=== PATIENT | female | born 1975 | race Caucasian/White ===

== ENCOUNTER 2019-02-17 10:24 | Emergency (ER) | payer OTHER ==
--- OUTSIDE RECORDS SUMMARY | 2019-02-17 10:30 | XMS REPORT | Continuity of Care Document ---
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 significant canal stenosis. Sacral spine: No evidence of significant canal or neural foraminal narrowing. No significant sacroiliac degenerative changes are evidence of acute bony abnormality. IMPRESSION: 1. Postoperative changes in the mid cervical spine with slight C5-C6 retrolisthesis. 2. Chronic mild anterior wedge compression deformity of the L1 vertebral body. 3. Disc bulge asymmetric to the right at L5-S1 with associated stenoses including resulting deformity of the right L5 foraminal nerve root. 4. Thyromegaly appears mildly heterogeneous without definite focal lesion. Recommend thyroid ultrasound. Recommendations for f/u of Incidental Thyroid Nodules (ITN) found on CT, MRI , NM and Extrathyroidal US based on the ACR white paper and Sharma 3-tiered system for managing ITNs: 1. Further evaluation by thyroid US recommended for: \X2981\ Solitary ITN with high risk imaging features (locally invasive nodule or suspicious lymph nodes) 0 Solitary ITN of any size in pediatric patients < 18 years of age 1 Solitary ITN > 1 cm in axial plane in patients between 18 and 35 years of age 2 Solitary ITN > 1.5 cm in axial plane in patients > 35 years of age 3 Heterogeneous enlarged thyroid gland 4 ITN avid on FDG-PET or other nuclear medicine (MIBI and octreotide) scans. FNA biopsy is also recommended for PET avid nodules. 2. No f/u is necessary for ITNs not meeting the above criteria. 3. For multiple thyroid nodules, the above recommendations for solitary ITN are to be applied to the largest nodule. 4. No US or f/u recommended for ITNs without high risk features in patients with limited life expectancy or significant co-morbidities, unless clinically warranted. 5. These recommendations do not apply to patients with increased risk for thyroid cancer or patients with symptomatic thyroid disease. Brain wo contrast Clinical History: memory loss. 09/18/2014 [employer] MRI Sex: F. : 1975. Technique: Sagittal, axial and coronal sequences through the brain with T1, T2, FLAIR and diffusion weighting on the high field magnet. The diffusion weighted exam shows no evidence for restricted diffusion or acute infarct. There is no acute abnormal intracranial signal, mass, mass effect or extra-axial fluid collection. Ventricles, wu barachnoid spaces and sulci are normal. There is no evidence for hydrocephalus. There is no midline shift. The posterior fossa is intact. There is normally maintained signal void in the major vasculatu re. The sella and suprasellar cistern are normal. Paranasal sinuses are aerated. Orbits are symmetric. IMPRESSION: 1. Negative MRI of the Brain. Chest 2 views EXAMINATION: Chest radiographic examination, frontal and lateral projections dated 08/17/2013 08/17/2013 [employer] COMPARISON: None INDICATION: Pneumonia FINDINGS: There is no acute infiltrate or focal consolidation. No pneumothorax or pleural effusion. The cardiomediastinal silhouette is within normal limits. The aorta is unremarkable. No acute bony abnormality noted. IMPRESSION: No acute cardiopulmonary abnormality. Brain wo contrast CT EXAMINATION: head CT without contrast. 05/10/2013 [facility] COMPARISON: None. REASON FOR EXAMINATION: head trauma, status post fall , headache. TECHNIQUE: Axial computed tomographic images were obtained through the brain without contrast. Coronal and sagittal reformatted images were subsequently obtained for further diagnostic information. FINDINGS: The sulci, lateral ventricles, and basilar cisterns are normal in appearance. There is no evidence of mass-effect or midline shift. No focal encephalomalacia. No intracerebral or extra-axial hematoma is identified. No abnormal intracranial calcifications. The the patient is status post right frontal parietal craniotomy. Severe mid nasal septal deviation to the right is present. Moderate jessica ateral ethmoid sinus mucosal thickening is present. IMPRESSION: 1. NO ACUTE INTRACRANIAL ABNORMALITIES. Spine cervical wo EXAMINATION: cervical spine CT without contrast. [address] [facility] REASON FOR EXAMINATION: neck trauma, neck pain. COMPARISON: None. TECHNIQUE: Axial computed tomographic images were obtained through the cervical spine without contrast. Sagittal and coronal reformatted images were subsequently obtained. FINDINGS: There is no fracture or subluxation. There is normal vertebral alignment. The patient is status post bilateral interpedicular screw fixation with posterior spinal stabilization ramon placement a t the C4-C6 levels. The hardware is intact. Mild paraseptal emphysematous changes are present within the lung apices. IMPRESSION: No fracture or subluxation of the cervical spine. Facial bone wo EXAMINATION: Facial bone CT 05/10/[address] [facility] [address] REASON FOR EXAMINATION: Facial trauma, pain. COMPARISON: None. TECHNIQUE: Axial computed tomographic images were obtained through the facial bones without contrast. Coronal and sagittal reformatted images were subsequently obtained. FINDINGS: There is no facial fracture. Severe nasal septal deviation to the right is present. Moderate bilateral ethmoid sinus mucosal thickening is present. Rhinitis is present. IMPRESSION: 1. No fracture or dislocation of the face. 2. Severe nasal septal deviation to the right. Spine Sacrum wo MRI of The Sacrum and Coccyx With and Without IV Contrast 07/2013 [facility] contrast MRI Bone & Joint History: Mass pain Technique: The study was performed on a high-field magnet without IV contrast. Findings: There is a well-defined benign-appearing cystic lesion in the cutaneous fat adjacent to the fifth coccygeal segment to the left of midline, adjacent to the cleft of the buttocks. Low signal intens ity peripheral margin is present. Lesion appears totally cystic in with minimal internal debris without solid components. The lesion overall measures 2.3 x 1.4 x 1.6 cm in its greatest cc AP and transve rse dimensions. The adjacent coccyx appears unremarkable without bone marrow edema or erosions. There is no intrapelvic component. This lesion most like represents a pilonidal cyst. No presacral masses identified. The sacral foramina appear patent. No bone marrow edema in the sacrum. The sacral iliac joints appear intact without erosions or joint effusion. The intrapelvic structures appear grossly unremarkable. Impression: Benign-appearing cystic lesion just to the left of the cleft, confined to the subcutaneous fat described above, adjacent to the fifth coccygeal segment. Findings most like represent a pilonidal cy st. No bony erosions. No intrapelvic or solid component. . Spine lumbar wo MRI of the Lumbar Spine 02/28/2013 [facility]IGLEY[facility] contrast MRI Joint History: Bilateral radiculopathy. Comparison Study: none Technique: The study was performed on a high field magnet without contrast. Findings: L1-2: There is a superior endplate deformity of L1 with loss approximately 20 % of vertebral height. Anterior spondylosis is present. No bone marrow edema. Findings most like represent a chronic nathan karen deformity. There is disc desiccation at T12-L1 without focal protrusion. No retropulsion. The L1-L2 disc is unremarkable without disc bulge protrusion. No central or foraminal stenosis. L2-3, L3-L4, L4-L5: The discs are adequately hydrated without disc bulge contusion. No central or foraminal stenosis. Mild facet degeneration at L4-L5. L5-S1: Disc desiccation without significant loss disc height. There is a small 3 mm broad-based posterior central protrusion mildly effacing the intrathecal sac without mass effect on S1 root sleeves. M ild facet degeneration. No central or foraminal stenosis. The conus terminates normally at T12-L1. Impression: Disc degeneration at L5-S1 where there is a small 3 mm broad-based posterior central protrusion with annular tear mildly effacing the intrathecal sac without mass effect on S1 root sleeves. Facet degeneration at L4-L5 and L5-S1. Old superior endplate deformity of L1 with loss of approximately 20% of vertebral height. No retropulsion or focal protrusion at T12-L1 or L1-L2.. Dictation Code: 100 Spine cervical wo MRI of the Cervical Spine Without IV Contrast 02/28/2013 [facility] contrast MRI Joint History: Pain. prior fusion Technique: The study was performed on a highfield magnet without intravenous contrast. Findings: C2-C3: Disc is hydrated without posterior disc bulge or protrusion. No central or foraminal narrowing. C3-C4: Disc height is maintained. Minimal bilateral uncovertebral spurring and mild bilateral facet degeneration. No central or foraminal stenosis. C4-C5: Disc height is maintained without focal protrusion. Posterior lateral fusion with surgical hardware in place. No central or foraminal stenosis. C5-C6: Disc desiccation with mild loss of disc height. Subtle retrolisthesis of C5 on C6. Mild posterior spondylosis without focal protrusion. Posterior lateral fusion with surgical hardware in place. No central or foraminal stenosis. C6-C7: Disc height is maintained. No posterior disc bulge protrusion. No central or foraminal stenosis. Minimal posterior central spondylosis. C7-T1: Disc desiccation. Mild compression deformity of T1 without bone marrow edema. No posterior disc bulge contusion. Mild bilateral facet degeneration. No central or foraminal stenosis. The cervical cord is normal in signal intensity and caliber. Craniocervical junction is normal. Impression: Posterior lateral fusion with surgical hardware in place at C4-C5, C5-C6. Mild disc space narrowing at C5-C6 with a subtle retrolisthesis of C5 on C6. Posterior central spondylosis without focal protrusion. No central or foraminal stenosis. A mild superior endplate deformity of T1 without bone marrow edema most like representing chronic posttraumatic change. Mild facet degeneration. No central or foraminal stenosis. Mild facet degeneration at C3-C4. Dictation Code : 100 Consultation Notes No Data Provided for This Section Discharge Summaries No Data Provided for This Section History and Physicals No Data Provided for This Section Vital Signs Vital Sign Value Date Comments Source Height 66 05/17/2018 [facility] Weight 153 05/17/2018 [facility] Diastolic (mm Hg) 72 05/17/2018 [facility] Systolic (mm Hg) 110 05/17/2018 [facility] Height 66 09/17/2017 [facility] Weight 155 09/17/2017 [facility] Diastolic (mm Hg) 80 09/17/2017 [facility] Systolic (mm Hg) 112 09/17/2017 [facility] Height 66 06/01/2017 [facility] Weight 156 06/01/2017 [facility] Diastolic (mm Hg) 70 06/01/2017 [facility] Systolic (mm Hg) 108 06/01/2017 [facility] Height 66 11/14/2016 [facility] Weight 154 11/14/2016 [facility] Diastolic (mm Hg) 68 11/14/2016 [facility] Systolic (mm Hg) 100 11/14/2016 [facility] Height 66 08/22/2016 [facility] Weight 141 08/22/2016 [facility] Diastolic (mm Hg) 80 08/22/2016 [facility] Systolic (mm Hg) 110 08/22/2016 [facility] Height 66 03/24/2016 [facility] Weight 154 03/24/2016 [facility] Diastolic (mm Hg) 80 03/24/2016 [facility] Systolic (mm Hg) 116 03/24/2016 [facility] Height 66 12/06/2015 [facility] Weight 154 12/06/2015 [facility] Diastolic (mm Hg) 72 12/06/2015 [facility] Systolic (mm Hg) 125 12/06/2015 [facility] Height 66 08/08/2015 [facility] Weight 144 08/08/2015 [facility] Diastolic (mm Hg) 75 08/08/2015 [facility] Systolic (mm Hg) 120 08/08/2015 [facility] Diastolic (mm Hg) 99 05/11/2013 [facility] Systolic (mm Hg) 146 05/11/2013 [facility] Respitory Rate 18 05/11/2013 [facility] Heart Rate 71 05/11/2013 [facility] Temperature Oral (F) 98.0 F 05/11/2013 [facility] Systolic (mm Hg) 140 05/11/2013 [facility] Diastolic (mm Hg) 90 05/11/2013 [facility] Temperature Oral (F) 98.0 F 05/11/2013 [facility] Respitory Rate 18 05/11/2013 [facility] Heart Rate 85 05/11/2013 [facility] Systolic (mm Hg) 141 05/11/2013 [facility] Respitory Rate 18 05/11/2013 [facility] Diastolic (mm Hg) 100 05/11/2013 [facility] Heart Rate 90 05/11/2013 [facility] Weight 54.545 05/11/2013 [facility] Temperature Oral (F) 98.0 F 05/11/2013 [facility] Encounters Location Location Encounter Encounter Reason Attending ADM DC Status Source Details Type Number For Provider Date Date Visit [facility] Inpatient [id number] DONTA [place]DR[place] 08/24 08/28 Active [facility] 7 [facility] [id number] NGOC 11/01 11/01 Discharg [facility] [place] [facility] /[facility] [id number] SHERRY 05/10 05/10 Discharg [facility] 7 [place]WT[place] /2012 [facility] [place] weight loss [id number] 11/28 11/28 Family [id number] /2013 [facility] [id number] [facility] [place] c18 [place] weight [place] [id number] 11/28 11/28 Family [id number]-927 /2013 [facility] [id number] [place] 007 [place] weight loss [id number] 11/28 11/28 Family b8-447b-ac2 /2013 [facility] [id number] [place] 325 [place] weight loss [id number] 11/28 11/28 Family 90-3h1c-yj0 /2013 [facility] [id number] [place] 65f [place] weight loss [id number] 11/28 11/28 Family 19-4942-ad0 /2013 [facility] [id number] [facility] [place] 3c8 [place] weight loss [id number] 11/28 11/28 Family a1-4fca-b3f /2013 [facility] [id number] [facility] [place] 4dd [place] weight loss [id number] 11/28 11/28 Family b5-0j66-x89 /2013 [facility] f-[id number] [place] 820 [place] weight loss [id number] 11/28 11/28 Family 8c-410f-afe /2013 [facility] 0-[id number] [place] 390 [place] weight loss [id number] 11/28 11/28 Family a6-2ye1-44r /2013 [facility] b-[id number] [facility] [place] 5ba [place] weight loss [id number] 11/28 11/28 Family 22-4370-892 /2013 [facility] 7-gy2014e9m [facility] [place] 0fc [place] weight loss [id number] 11/28 11/28 Family f4-4688-9d6 /2013 [facility] [id number] [facility] [place] 899 [place] weight loss [id number] 11/28 11/28 Family 50-4022-83c /2013 [facility] e-[id number] [place] 9b2 [place] weight loss [id number] 11/28 11/28 Family cc-94b7-a14 /2013 [facility] [id number] [facility] , [place] b20 [place] weight loss [id number] 11/28 11/28 Family 8b-27u0-e71 /2013 [facility] f-[id number] [facility] [place] ad2 [place] weight loss [id number] 11/28 11/28 Family 37-4fff-ad9 /2013 [facility] [id number] [place] 68b [place] weight loss [id number] 11/28 11/28 Family 8c-7ns1-a40 /2013 [facility] a-[id number] [facility] [place] 100 [place] weight loss [id number] 11/28 11/28 Family f8-3q4z-38w /2013 [facility] 1-[id number] [facility] [place] 4f2 [place] refill [id number] 12/29 12/29 Family trazadone 46-4305-8c5 /2013 [facility] 6-[id number] [facility] [place] 174 [place] ref[place] [id number] 12/29 12/29 Family trazadone f8-444f-843 /2013 [facility] [id number] [place] 1d0 [place] refill [id number] 12/29 12/29 Family trazadone c6-4260-a39 /2013 [facility] 4-[id number] [facility] [place] 274 [place] refill [id number] 12/29 12/29 Family trazadone eb-67o9-572 /2013 [facility] d-[id number] [place] fa8 [place] refill [id number] 12/29 12/29 Family trazadone f5-07y0-1p5 /2013 [facility] 7-[id number] [place] , [place] 9be [place] ref[place] [id number] 12/29 12/29 Family trazadone f7-4277-a73 /2013 [facility] 0-[id number] [facility] , [place] 3db [place] ref[place] [id number] 12/29 12/29 Family trazadone 90-4454-951 /2013 [facility] d-[id number] [facility] , [place] ad9 [place] ref[place] [id number] 12/29 12/29 Family trazadone 16-46ea-982 /2013 [facility] e-[id number] [facility] [place] 07a [place] ref[place] [id number] 12/29 12/29 Family trazadone 6a-3z03-0h5 /2013 [facility] 1-941kklatl [facility] [place] e61 [place] refill [id number] 12/29 12/29 Family trazadone 48-404b-9fc /2013 [facility] e-[id number] [facility] [place] 63c [place] ref[place] [id number] 12/29 12/29 Family trazadone 7e-9e3p-2y0 /2013 [facility] [id number] [place] 56b [place] ref[place] [id number] 12/29 12/29 Family trazadone 14-480d-9ee /2013 [facility] e-[id number] [place] aea [place] ref[place] [id number] 12/29 12/29 Family trazadone 9d-484c-88c /2013 [facility] b-[id number] [facility] , [place] 943 [place] refill [id number] 12/29 12/29 Family trazadone 86-5r4w-ary /2013 [facility] b-[id number] [facility] , [place] 89c [place] refill [id number] 12/29 12/29 Family trazadone c9-4662-a99 /2013 [facility] f-[id number] [place] , [place] 2fa [place] ref[place] [id number] 12/29 12/29 Family trazadone 5d-48g0-0w5 /2013 [facility] 8-[id number] [facility] [place] 71c [place] refill [id number] 12/29 12/29 Family trazadone 8c-85y7-0ro /2013 [facility] [id number] [facility] , [place] 89e [place] refill [id number] 01/05 01/05 Family trazadone 75-448f-b2b /2013 [facility] c-[id number] [facility] , [place] 284 [place] refill [id number] 01/05 01/05 Family trazadone f7-4406-97a /2013 [facility] [id number] [place] , [place] 3cb [place] refill [id number] 01/05 01/05 Family trazadone 40-4787-b24 /2013 [facility] [id number] [facility] [place] bc2 [place] refill [id number] 01/05 01/05 Family trazadone 3d-1g82-03b /2013 [facility] [id number] [facility] , [place] 7a9 [place] refill [id number] 01/05 01/05 Family trazadone 7f-8e8o-ag0 /2013 [facility] b-[id number] [facility] , [place] afc [place] ref[place] [id number] 01/05 01/05 Family trazadone 69-445e-90c /2013 [facility] a-[id number] [facility] , [place] b57 [place] refill [id number] 01/05 01/05 Family trazadone 8c-56h1-47y /2013 [facility] 3-[id number] [facility] [place] 8d6 [place] refill [id number] 01/05 01/05 Family trazadone 77-86f0-639 /2013 [facility] d-n6mog3o87 [facility] , [place] 466 [place] refill [id number] 01/05 01/05 Family trazadone 33-7v5t-34u /2013 [facility] [id number] [facility] , [place] 892 [place] refill [id number] 01/05 01/05 Family trazadone 1e-2q33-35o /2013 [facility] c-[id number] [facility] , [place] 9ae [place] refill [id number] 01/05 01/05 Family trazadone 09-9q2e-0be /2013 [facility] [id number] [place] , [place] 9b8 [place] refill [id number] 01/05 01/05 Family trazadone 44-4363-91a /2013 [facility] 9-[id number] [facility] , [place] 87b [place] refill [id number] 01/05 01/05 Family trazadone 4f-422a-a99 /2013 [facility] [id number] [facility] , [place] 320 [place] refill [id number] 01/05 01/05 Family trazadone db-4634-9dd /2013 [facility] [id number] [facility] , [place] bf3 [place] refill [id number] 01/05 01/05 Family tra[facility]adone da-09d9-o40 /2013 [facility] 4-[id number] [facility] , [place] d49 [place] refill [id number] 01/05 01/05 Family trazadone 63-67b5-504 /2013 [facility] c-[id number] [facility] , [place] 983 [place] refill [id number] 01/05 01/05 Family trazadone 3a-21j9-ky3 /2013 [facility] a-[id number] [facility] , [place] 11a [place] ref[place] [id number] 01/05 01/05 Family trazadone e6-4348-a3a /2013 [facility] [id number] [facility] , [place] 6b7 [place] refill [id number] 01/05 01/05 Family trazadone 54-475a-97c /2013 [facility] d-[id number] [facility] , [place] 615 [place] refill [id number] 01/05 01/05 Family trazadone fa-6w8x-r66 /2013 [facility] [id number] [facility] , [place] 31b [place] ref[place] [id number] 01/05 01/05 Family trazadone 86-4640-ad3 /2013 [facility] [id number] [facility] , [place] d44 [place] refill [id number] 01/05 01/05 Family trazadone 5b-7xs0-r92 /2013 [facility] [id number] [facility] , [place] 67d [place] ref[place] [id number] 01/05 01/05 Family trazadone 31-9ql1-6v9 /2013 [facility] a-6dc74wavx [facility] , [place] 6e1 [place] refill [id number] 01/05 01/05 Family trazadone da-3z00-j89 /2013 [facility] c-[id number] [facility] , [place] 140 [place] refill [id number] 01/05 01/05 Family trazadone b8-4948-a30 /2013 [facility] b-[id number] Health , [place] nneka [place] ref[place] [id number] 01/05 01/05 Family trazadone 57-4594-997 /2013 [facility] [id number] Health , [place] 5b1 [place] refill [id number] 01/05 01/05 Family trazadone 15-447d-aa7 /2013 [facility] b-[id number] Health , [place] a70 [place] refill [id number] 01/05 01/05 Family trazadone ab-498b-9a6 /2013 [facility] b-[id number] [facility] , [place] 819 [place] refill [id number] 01/05 01/05 Family trazadone ec-4407-8c6 /2013 [facility] e-[id number] [facility] , [place] dec [place] refill [id number] 01/05 01/05 [facility] traz[facility]one 6a-444a-bb9 /2013 [facility] [id number] [facility] , [place] b4c [place] ref[place] [id number] 01/05 01/05 Family trazadone 2b-1mx7-7t6 /2013 [facility] c-[id number] [facility] , [place] 86f [place] ref[place] [id number] 01/05 01/05 Family trazadone fc-63f6-960 /2013 [facility] 5-[id number] [facility] , [place] eac [place] ref[place] [id number] 01/05 01/05 Family trazadone 5a-449f-965 /2013 [facility] d-[id number] [facility] , [place] 2c7 [place] refill [id number] 01/05 01/05 Family trazadone d6-7l1p-4q0 /2013 [facility] [id number] [facility] , [place] e81 [place] Unknown [id number] 08/14 08/14 Family 49-405f-85c /2014 [facility] [id number] [facility] , [place] 32d [place] Unknown [id number] 08/14 08/14 Family 9c-453b-a0d /2014 [facility] [id number] [facility] , [place] f05 [place] Unknown [id number] 08/14 08/14 Family 50-4302-a58 /2014 [facility] [id number] [facility] , [place] ad0 [place] Unknown [id number] 08/14 08/14 Family 0f-39q2-97o /2014 [facility] 9-[id number] [facility] , [place] 6d9 [place] Unknown [id number] 08/14 08/14 Family 1c-4400-ac1 /2014 [facility] e-[id number] [facility] , [place] 395 [place] Unknown [id number] 08/14 08/14 Family bf-9h2i-10n /2014 [facility] 0-[id number] [facility] , [place] bfe [place] Unknown [id number] 08/14 08/14 Family 74-49bf-95c /2014 [facility] 7-920knj63l [facility] , [place] aea [place] Unknown [id number] 08/14 08/14 Family c0-4r12-283 /2014 [facility] [id number] [facility] , [place] 72c [place] Unknown [id number] 08/14 08/14 Family 21-4292-af0 /2014 [facility] [id number] [facility] , [place] 79f [place] Unknown [id number] 08/14 08/14 Family 05-475e-9f0 /2014 [facility] 4-[id number] [facility] , [place] 8e1 [place] Unknown [id number] 08/14 08/14 Family a2-474d-b15 /2014 [facility] [id number] [facility] , [place] 7a0 [place] Unknown [id number] 08/14 08/14 Family 96-4027-8e1 /2014 [facility] a-[id number] [facility] , [place] 6da [place] Unknown [id number] 08/14 08/14 Family dd-4346-85c /2014 [facility] [id number] [facility] , [place] 8f0 [place] Unknown [id number] 08/14 08/14 Family c6-4455-8da /2014 [facility] [id number] [facility] , [place] 600 [place] Unknown [id number] 08/14 08/14 Family f4-4318-a27 /2014 [facility] [id number] Health , [place] a90 [place] Unknown [id number] 08/14 08/14 Family 10-91j6-5zd /2014 [facility] d-[id number] [facility] , [place] baf [place] Unknown [id number] 08/14 08/14 Family 9f-47af-a0b /2014 [facility] f-[id number] [facility] , [place] fc1 [facility] Unknown [id number] 09/06 09/06 [facility] [id number] /[facility] 1-50ag7n975 [facility] , [place] 6c2 [place] Unknown [id number] 09/08 09/08 [facility] 8c-5n98-iid /[facility] 4-123np8927 [facility] , PAUL 2f8 [facility] [id number] [place] 09/18 09/19 [facility] [place] /2014 [facility] [place] refill [id number] 09/22 09/22 Family trazadone b4-9kt0-f0s /2014 [facility] a-50zmp5609 [facility] , [place] 576 [place] ref[place] [id number] 09/22 09/22 Family trazadone 62-4939-a76 /2014 [facility] 8-es9e9vn88 [facility] , [place] 42f [place] refill [id number] 09/22 09/22 Family trazadone 98-4288-a63 /2014 [facility] 5-23rddq492 Health , [place] e2f [place] ref[place] [id number] 09/22 09/22 Family trazadone 7a-4544-967 /2014 [facility] 8-14617e1gc [facility] , [place] 74c [place] ref[place] [id number] 09/22 09/22 Family trazadone d0-6ai1-925 /2014 [facility] 1-9x05o52z2 [place] , [place] 227 [place] ref[place] [id number] 09/22 09/22 Family trazadone 8b-4386-ab3 /2014 [facility] 9-95o4q3370 [place] , [place] 159 [place] ref[place] [id number] 09/22 09/22 Family trazadone 98-7s99-a46 /2014 [facility] 7-564jv25e0 [facility] , [place] 27c [place] ref[place] [id number] 09/22 09/22 Family trazadone b4-471f-9af /2014 [facility] 7-i4s6x2j0y [place] , [place] 477 [place] ref[place] [id number] 09/22 09/22 Family trazadone 81-52q6-252 /2014 [facility] 9-udiz3nh81 [facility] [place] ec0 [place] ref[place] [id number] 09/22 09/22 Family trazadone 78-443b-acc /2014 [facility] 8-pp1dd2w88 [facility] , [place] fa2 [place] ref[place] [id number] 09/22 09/22 Family trazadone 30-3mk5-cdd /2014 [facility] f-qdk94kak8 [place] , [place] 30b [place] ref[place] [id number] 09/22 09/22 Family trazadone 22-459b-9a8 /2014 [facility] a-a99r9s60b [facility] [place] 8ab [place] ref[place] [id number] 09/22 09/22 Family trazadone 78-4628-a20 /2014 [facility] 8-sqg368e28 [place] 523 [place] ref[place] [id number] 09/22 09/22 Family trazadone 2a-4299-9e6 /2014 [facility] 7-3r3kv9492 Health , [place] f82 [place] ref[place] [id number] 09/22 09/22 Family trazadone d8-4760-ac5 /2014 [facility] 5-8y8h134m8 Health , [place] a3f [place] ref[place] [id number] 09/22 09/22 Family trazadone 13-4515-b86 /2014 [facility] e-k9j75qcgg [facility] [place] 0b1 [place] ref[place] [id number] 09/22 09/22 Family trazadone 7b-9t21-g00 /2014 [facility] 1-2929n27y8 Health , [place] e2a [place] Unknown [id number] 09/23 09/23 Family 42-6wo9-zg8 /2014 [facility] 8-7mv4cadt7 Health , [place] a5a [place] Unknown [id number] 09/23 09/23 Family 6f-4q35-89q /[facility] 5-53pt29d31 [facility] [place] 865 [place] Unknown [id number] 09/23 09/23 Family 88-4702-ad0 /2014 [facility] 7-4538n4253 [facility] , [place] 057 [place] Unknown [id number] 09/23 09/23 Family 18-4fab-8ee /2014 [facility] 2-h8bi41s71 [facility] [place] 282 [place] Unknown [id number] 09/23 09/23 Family 77-4100-89f /2014 [facility] c-w7v9t39u1 [facility] , [place] 4c6 [place] Unknown [id number] 09/23 09/23 Family 1c-45bb-8e9 /2014 [facility] f-7p4930d37 [facility] , [place] bd0 [place] Unknown [id number] 09/23 09/23 Family 16-4cdf-8f2 /2014 [facility] 4-y1942a7dn [facility] , [place] 32f [place] Unknown [id number] 09/23 09/23 Family 30-4beb-9cc /2014 [facility] a-133141a97 [facility] , [place] 145 [place] Unknown [id number] 09/23 09/23 Family dc-4346-8a5 /2014 [facility] b-3x487vq8b [facility] , [place] 0b0 [place] Unknown [id number] 09/23 09/23 Family 97-75c5-2a1 /2014 [facility] 3-t39h6n3s6 [facility] , [place] 05d [place] Unknown [id number] 09/23 09/23 Family 26-45cb-8fa /2014 [facility] 6-8cuh9uh93 [facility] [place] 529 [place] Unknown [id number] 09/23 09/23 Family 3a-3b7e-766 /2014 [facility] 1-553h86c5t [facility] , [place] 7b5 [place] Unknown [id number] 09/23 09/23 Family be-3e8l-7ix /2014 [facility] a-0v1u0499m [facility] , [place] f51 [place] Unknown [id number] 09/23 09/23 Family 5e-426d-a7b /2014 [facility] c-s7h695av7 [facility] , [place] cbd [place] Unknown [id number] 09/23 09/23 [facility] e3-31g8-9k8 /2014 [facility] 2-8659937p7 [facility] , [place] c2e [place] Unknown [id number] 09/23 09/23 Family ec-47fb-903 /2014 [facility] 1-cb26f09g1 [facility] [place] 408 [place] Unknown [id number] 09/23 09/23 Family c8-4fda-b3d /2014 [facility] f-209a619q0 [facility] [place] 556 [place] from [id number] 11/22 11/22 Family e.r./chest bd-419d-carlyn /2014 [facility] pain 2-g86qow26d [facility] [place] 23a [place] from [id number] 11/22 11/22 Family e.r./chest 06-418e-917 /2014 [facility] pain 1-eb91758u7 [facility] , [place] 45b [place] from [id number] 11/22 11/22 Family e.r./chest 02-7x14-866 /2014 [facility] pain 5-2u636cc7u [facility] , [place] b27 [place] from [id number] 11/22 11/22 Family e.r./chest 23-9z8x-4o9 /2014 [facility] pain 7-1x2332phj [facility] , [place] 4eb [place] from [id number] 11/22 11/22 Family e.r./chest ca-2pp0-0mq /2014 [facility] pain 8-s2130517e [facility] , [place] cd5 [place] from [id number] 11/22 11/22 Family e.r./chest 7f-4413-ba0 /2014 [facility] f-v08856177 [facility] , [place] 6a5 [place] from [id number] 11/22 11/22 Family e.r./chest 9d-467c-88e /2014 [facility] pain 3-9cz36o6cv [facility] , [place] 8a5 [place] from [id number] 11/22 11/22 Family e.r./chest 5b-4446-a32 /2014 [facility] pain c-nm421s45r [facility] , [place] 725 [place] from [id number] 11/22 11/22 Family e.r./chest 23-8y68-ym5 /2014 [facility] pain b-4j5125287 [facility] , [place] 7a4 [place] from [id number]-kc 11/22 11/22 Family e.r./chest ea-5wv4-z68 /2014 [facility] e-7vu5xi67n [facility] , [place] d81 [place] from [id number]-20 11/22 11/22 Family e.r./chest 07-418f-b62 /2014 [facility] f-wg7z816s9 Health , [place] ef5 [place] from [id number]-xv 11/22 11/22 Family e.r./chest 7f-4330-aaa /2014 [facility] pain f-r90574a2u Health , [place] f10 [place] from 8fdx4034-7p 11/22 11/22 Family e.r./chest 44-44ed-978 /2014 [facility] pain b-705f465xg [facility] , [place] 34c [place] from [id number] 11/22 11/22 Family e.r./chest 2c-464b-8c8 /2014 [facility] pain 3-dvxs70455 [facility] , [place] 263 [place] from [id number] 11/22 11/22 Family e.r./chest 3f-64m1-fg1 /2014 [facility] pain 9-7650pypx2 Health , [place] 21a [place] from [id number] 11/22 11/22 Family e.r./chest ba-442e-aa1 /2014 [facility] pain 0-215hmo310 Health , [place] c9a [place] from [id number] 11/22 11/22 Family e.r./chest 0e-417b-aa6 /2014 [facility] pain e-4lnh32q7l [facility] [place] 99f [place] 1 month [id number] 12/22 12/22 Family f/up fb-469c-942 /2014 [facility] a-m08cf6iom [facility] , [place] 860 [place] 1 month [id number]-94 12/22 12/22 Family f/up 57-3ui9-070 /2014 [facility] 1-w8e57d777 [facility] , [place] 2b5 [place] 1 month [id number]-l6 12/22 12/22 Family f/up 0e-5e80-80r /2014 [facility] 0-rzi56zw96 [facility] , [place] 66f [place] 1 month [id number]-sw 12/22 12/22 Family f/up d1-9mu2-3ie /2014 [facility] f-0810h4tn2 [facility] , [place] e4a [place] 1 month [id number]-ja 12/22 12/22 Family f/up 10-4123-a07 /2014 [facility] f-25s7m3h58 [facility] , [place] 48b [place] 1 month [id number] 12/22 12/22 Family f/up 96-2vg0-tkq /2014 [facility] 1-9dh9v0d92 [facility] , [place] fef [place] 1 month [id number]-p6 12/22 12/22 Family f/up fa-465e-a92 /2014 [facility] 4-ywc415u6k [facility] , [place] 57a [place] 1 month [id number] 12/22 12/22 Family f/up bd-4bdb-a41 /2014 [facility] a-9422ivg97 [facility] , [place] a7f [place] 1 month [id number]-s4 12/22 12/22 Family f/up 14-08z4-p40 /2014 [facility] d-851gl397t [facility] , [place] ab9 [place] 1 month [id number]-l1 12/22 12/22 Family f/up bc-431e-bb7 /2014 [facility] a-31y84vz4w [facility] , [place] cbc [place] 1 month [id number] 12/22 12/22 Family f/up 2a-92b3-9t3 /2014 [facility] c-1k3f164u2 [facility] , [place] 18a [place] 1 month 509y7o7z-7n 12/22 12/22 Family f/up 56-4725-bc5 /2014 [facility] f-p479ec4w3 [facility] , [place] 8d0 [place] 1 month 7bnvogp3-26 12/22 12/22 Family f/up 01-97j5-e15 /2014 [facility] 2-p92aiqju3 [facility] , [place] 2f4 [place] 1 month 70drf54l-qz 12/22 12/22 Family f/up 1c-4334-9af /2014 [facility] f-07e2c1074 [facility] , [place] f5b [place] 1 month [id number] 12/22 12/22 Family f/up 4b-49fc-bf7 /2014 [facility] 8-2n08n83lx [facility] , [place] 9d2 [place] 1 month [id number] 12/22 12/22 Family f/up 92-3h58-d78 /2014 [facility] f-041geh5qe [facility] , [place] d4a [place] 1 month [id number]-i3 12/22 12/22 Family f/up e1-5jn9-573 /2014 [facility] 0-l6y4313j4 [facility] , [place] a1b [place] REFILL [id number] 01/22 01/22 Family 2b-40bb-bc3 /2014 [facility] c-3f9178n61 [facility] , [place] 82b [place] REFILL [id number]-z4 01/22 01/22 Family 0e-8b02-697 /2014 [facility] 9-08cub7f4n [facility] , [place] d35 [place] REFILL [id number] 01/22 01/22 Family 18-4798-882 /2014 [facility] a-93d23mxzp [facility] , [place] 9a9 [place] REFILL [id number] 01/22 01/22 Family ca-4710-b83 /2014 [facility] f-x8w735du3 [facility] , [place] 88c [place] REFILL [id number] 01/22 01/22 Family 33-45ab-94d /2014 [facility] 4-85x01j831 Health , [place] dfb [place] REFILL [id number]-08 01/22 01/22 Family 64-4cdd-884 /2014 [facility] 6-89y8370oy [facility] , [place] 44c [place] REFILL [id number]-87 01/22 01/22 Family d3-4078-918 /2014 [facility] d-94ue057qr [facility] , [place] 210 [place] REFILL [id number] 01/22 01/22 Family 1d-0y8w-j70 /2014 [facility] 2-8q0v95w11 [facility] , [place] 206 [place] REFILL [id number] 01/22 01/22 Family 09-97b9-q22 /2014 [facility] c-9g717ud23 [facility] , [place] 3bd [place] REFILL [id number]-6l 01/22 01/22 Family 73-32v1-1z6 /2014 [facility] 9-865626yy6 [facility] , [place] 4e9 [place] REFILL [id number]-49 01/22 01/22 Family 91-424e-987 /2014 [facility] e-91u1815xa [facility] , [place] 1d8 [place] REFILL [id number] 01/22 01/22 Family 5f-0k67-636 /2014 [facility] 9-86y9x1173 Health , [place] b4d [place] REFILL [id number]-a1 01/22 01/22 Family 94-25v6-60d /2014 [facility] 4-2x9nq0a7o [facility] , [place] 8ff [place] REFILL [id number] 01/22 01/22 Family f9-44de-9f0 /2014 [facility] 6-2ic6v522i [facility] , [place] 45d [place] REFILL [id number]-13 01/22 01/22 Family af-2v0v-8e2 /2014 [facility] 2-a2xv803k3 [facility] , [place] 8d4 [place] REFILL [id number] 01/22 01/22 SL Family f0-4f96-jp9 /2014 [facility] 1-1v076719b [facility] , [place] 0b2 [place] REFILL [id number]-n5 01/22 01/22 [facility] ae-4w38-p2x /2014 [facility] c-33211lc50 [facility] , [place] 42e [place] EAR ACHE, [id number]-nt 01/31 01/31 [facility] PAIN IN HIP 78-4eae-add /2014 [facility] 3-216n59253 [facility] , [place] 36b [place] EAR ACHE, [id number] 01/31 01/31 [facility] PAIN IN HIP 66-1c6k-s5m /2014 [facility] 3-fy6357420 [facility] , [place] bfa [place] EAR ACHE, [id number] 01/31 01/31 [facility] PAIN IN HIP ca-4458-b69 /2014 [facility] 0-wx6216301 [facility] , [place] 933 [place] EAR ACHE, [id number]-25 01/31 01/31 [facility] PAIN IN HIP 33-4898-bee /2014 [facility] e-902g803s9 [facility] , [place] b9b [place] EAR ACHE, [id number] 01/31 01/31 [facility] PAIN IN HIP e1-7lj2-bk4 /2014 [facility] e-1t9r9rs10 [facility] , [place] 77b [place] EAR ACHE, [id number] 01/31 01/31 [facility] PAIN IN HIP 4b-56l3-o3b /2014 [facility] f-30q3kytdw [facility] , [place] 725 [place] EAR ACHE, [id number] 01/31 01/31 [facility] PAIN IN HIP f7-43m6-vst /2014 [facility] e-x28352t17 [facility] , [place] 317 [place] EAR ACHE, [id number] 01/31 01/31 [facility] PAIN IN HIP 59-491a-95c /2014 [facility] 5-14tja8z58 [facility] , [place] 1fb [place] EAR ACHE, [id number] 01/31 01/31 [facility] PAIN IN HIP ec-4p5q-597 /2014 [facility] e-caebebebf [facility] , [place] 9d3 [place] EAR ACHE, k70o7uq3-p0 01/31 01/31 [facility] PAIN IN HIP b4-5k2y-ue9 /2014 [facility] 6-ltn5vv64f [facility] , [place] 8df [place] EAR ACHE, [id number]-dx 01/31 01/31 [facility] PAIN IN HIP 76-4376-a80 /2014 [facility] c-rij2u1d0j [facility] , [place] 7e9 [place] EAR ACHE, [id number] 01/31 01/31 [facility] PAIN IN HIP 4b-9h31-71b /2014 [facility] 1-g2c6ra4c7 [facility] , [place] de4 [place] EAR ACHE, [id number]-b2 01/31 01/31 [facility] PAIN IN HIP e7-1it8-qwt /2014 [facility] b-05bh325r1 [facility] , [place] 69c [place] EAR ACHE, [id number] 01/31 01/31 [facility] PAIN IN HIP c5-9i8q-d69 /2014 [facility] 0-g90yn4103 [facility] , [place] ef2 [place] EAR ACHE, [id number]-t4 01/31 01/31 [facility] PAIN IN HIP e6-420b-84d /2014 [facility] 3-2i62e51ps [facility] , [place] 3df [place] EAR ACHE, [id number]-i4 01/31 01/31 [facility] PAIN IN HIP 9a-4478-b82 /2014 [facility] d-3yp7007zf [facility] , [place] 131 [place] EAR ACHE, [id number] 01/31 01/31 [facility] PAIN IN HIP 0e-49fb-be3 /2014 [facility] b-y7rb50k0u [facility] , [place] c9b [place] refill req [id number] 02/15 02/15 [facility] 00-86q4-da3 /2014 [facility] d-7rc498q50 [facility] , [place] c01 [place] refill req [id number] 02/15 02/15 [facility] 7d-7g47-49f /2014 [facility] 2-2gew04qdh [facility] , [place] 529 [place] refill req [id number] 02/15 02/15 [facility] 1c-4457-ab0 /2014 [facility] 5-659239y24 [facility] , [place] 488 [place] refill req [id number] 02/15 02/15 Family 56-491f-be2 /2014 [facility] 8-4902r82io [facility] , [place] 3d9 [place] refill req [id number] 02/15 02/15 Family 2c-48v0-ryx /2014 [facility] 8-4gz6d1g16 [facility] , [place] a25 [place] refill req [id number] 02/15 02/15 Family 04-4dde-b94 /2014 [facility] f-sw0m50286 [facility] , [place] a22 [place] refill req [id number] 02/15 02/15 Family 28-4478-980 /2014 [facility] 5-w0c5i0qab [facility] , [place] 7dc [place] refill req [id number] 02/15 02/15 Family 0f-69q2-909 /2014 [facility] 9-g36za1a2t Health , [place] c6c [place] refill req [id number] 02/15 02/15 Family 2b-435a-84e /2014 [facility] 5-a29z7th03 Health , [place] 7b7 [place] refill req [id number] 02/15 02/15 Family 44-6t7d-mvy /2014 [facility] c-7t288w5i3 [place] , [place] 0e0 [place] refill req [id number] 02/15 02/15 Family ee-62n6-k50 /2014 [facility] 9-38b87e018 Health , [place] c35 [place] refill req [id number] 02/15 02/15 Family 0c-2e13-l9z /2014 [facility] e-74152373z [facility] , [place] aa0 [place] refill req [id number] 02/15 02/15 Family 11-4p7s-f09 /2014 [facility] a-36162z6s5 Health , [place] 9e6 [place] refill req [id number] 02/15 02/15 Family 41-2c21-mcw /2014 [facility] d-8duu055qm [facility] , [place] 3b8 [place] refill req [id number] 02/15 02/15 Family 28-0q51-m93 /2014 [facility] 4-0xass7775 [facility] , [place] 2b5 [place] refill req [id number] 02/15 02/15 Family f6-413e-816 /2014 [facility] e-4050e1k16 [facility] , [place] 1ee [place] refill req [id number] 02/15 02/15 Family 5c-8b5l-y29 /2014 [facility] 8-60010vlkk Health , [place] d3f [place] REFILL [id number] 03/20 03/20 Family CLONAZPEM 6b-7t1m-4o2 /2014 [facility] 2-3vml12997 Health , [place] mandi [place] REFILL [id number] 03/20 03/20 Family CLONAZPEM 73-7n30-5xj /2014 [facility] 2-734657di4 Health , [place] ce7 [place] REFILL [id number] 03/20 03/20 Family CLONAZPEM 5d-474d-b11 /2014 [facility] f-1g3955955 Health , [place] 799 [place] REFILL [id number] 03/20 03/20 Family CLONAZPEM 6e-4abd-a41 /2014 [facility] 4-69nye7e34 Health , [place] fcf [place] REFILL [id number] 03/20 03/20 Family CLONAZPEM e4-4999-b2e /2014 [facility] e-uap95pr7g [facility] , [place] 7d2 [place] REFILL [id number] 03/20 03/20 Family CLONAZPEM af-4258-996 /2014 [facility] 6-843ml8284 Health , [place] a7c [place] REFILL [id number] 03/20 03/20 Family CLONAZPEM df-4666-939 /2014 [facility] 7-vu9b7n5h6 Health , [place] ff4 [place] REFILL [id number] 03/20 03/20 Family CLONAZPEM cc-420d-ac2 /2014 [facility] d-66g3noy9v [facility] , [place] 698 [place] REFILL [id number] 03/20 03/20 [facility] Family CLONAZPEM a9-45ee-98f /2014 [facility] c-7j253l7r3 [facility] , [place] 08a [place] REFILL [id number] 03/20 03/20 Family CLONAZPEM 68-4021-ac4 /2014 [facility] d-yb4x06558 [facility] , [place] 02f [place] REFILL [id number] 03/20 03/20 Family CLONAZPEM 1a-5pz8-017 /2014 [facility] 7-36j88x904 [facility] , [place] 352 [place] REFILL [id number]-[id number] 03/20 03/20 Family CLONAZPEM e6-1c36-2j3 /2014 [facility] c-7p741t2eu [facility] , [place] e64 [place] REFILL [id number] 03/20 03/20 Family CLONAZPEM 1f-4139-a55 /2014 [facility] 5-8m98xe1a8 [facility] , [place] 933 [place] REFILL [id number] 03/20 03/20 SL Family CLONAZPEM 88-41ed-b22 /2014 [facility] 6-2945q3618 [facility] , [place] 7e8 [place] REFILL [id number] 03/20 03/20 Family CLONAZPEM 1d-4pm4-jyb /2014 [facility] b-6q6wpe767 Health , [place] a0c [place] REFILL [id number] 03/20 03/20 Family CLONAZPEM e9-5dn1-640 /2014 [facility] 4-gs39rurx2 Health , [place] f94 [place] REFILL [id number] 03/20 03/20 Family CLONAZPEM 3e-4192-80c /2014 [facility] 1-15c95i8k3 [facility] , [place] 22c [place] Unknown [id number] 04/29 04/29 Family 05-4142-b99 /2014 [facility] d-727548e9a [facility] , [place] fb7 [place] Unknown [id number] 04/29 04/29 Family 10-4483-bb8 /2014 [facility] a-0h5d70m2b [facility] , [place] 408 [place] Unknown [id number] 04/29 04/29 Family 47-8f78-z2q /2014 [facility] 3-3f537p546 Health , [place] 88d [place] Unknown [id number] 04/29 04/29 Family b8-4fj0-d10 /2014 [facility] 0-z8g0rv58s [facility] , [place] 055 [place] Unknown [id number] 04/29 04/29 Family 46-3kb2-x7d /2014 [facility] 7-0245v6v4f [facility] , [place] df8 [place] Unknown [id number] 04/29 04/29 Family a5-5l8f-3zb /2014 [facility] 6-i491175er [facility] , [place] a6c [place] Unknown [id number] 04/29 04/29 Family ca-9f0q-t6c /2014 [facility] 8-82u573283 [facility] , [place] 6ce [place] Unknown [id number] 04/29 04/29 Family dd-489f-a9e /2014 [facility] b-5i3cf3r29 [facility] , [place] 576 [place] Unknown [id number] 04/29 04/29 Family 15-40ca-9dc /2014 [facility] 8-471t277nd [facility] , [place] 6a4 [place] Unknown [id number] 04/29 04/29 Family e7-3i4b-s1v /2014 [facility] 0-amr0h851s [facility] , [place] 012 [place] Unknown [id number] 04/29 04/29 Family 9a-4843-bbc /2014 [facility] f-to11990wu [facility] , [place] 8ff [place] Unknown [id number]-u7 04/29 04/29 Family 75-410e-a0e /2014 [facility] d-9r3414f54 Health , [place] faa [place] Unknown [id number] 04/29 04/29 Family fb-20x0-fjl /2014 [facility] 4-0r7chj214 [facility] , [place] 817 [place] Unknown [id number] 04/29 04/29 Family 81-404e-a81 /2014 [facility] 9-k74vy57ip [facility] , [place] 619 [place] Unknown [id number] 04/29 04/29 Family cd-7k24-32b /2014 [facility] 9-973j160lp [facility] , [place] 02a [place] Unknown [id number] 04/29 04/29 Family 1d-9d6e-vud /2014 [facility] c-k90814b0m [facility] , [place] a95 [place] Unknown [id number] 04/29 04/29 Family f4-4t2a-cx8 /2014 [facility] f-s31g47j3p [facility] , [place] 714 [place] REFILL [id number] 07/16 07/16 Family CYCLOBENZAP 34-454e-954 /2014 [facility] 3-8n07j213a [facility] , [place] 345 [place] REFILL [id number] 07/16 07/16 Family CYCLOBENZAP bd-488b-8a6 /2014 [facility] b-nk9939j79 Health , [place] b40 [place] REFILL [id number] 07/16 07/16 Family CYCLOBENZAP b1-40be-a53 /2014 [facility] b-va3ny2657 [facility] , [place] 46f [place] REFILL [id number] 07/16 07/16 Family CYCLOBENZAP e2-473b-97e /2014 [facility] 8-88l5z4903 Health , [place] 4c9 [place] REFILL [id number] 07/16 07/16 Family CYCLOBENZAP b1-1e1o-834 /2014 [facility] 4-806785743 Health , [place] f87 [place] REFILL [id number] 07/16 07/16 Family CYCLOBENZAP 21-53x2-6v7 /2014 [facility] a-jks76452l [facility] , [place] 336 [place] REFILL [id number] 07/16 07/16 Family CYCLOBENZAP 2c-41fa-adf /2014 [facility] 8-2083v37lv [facility] , [place] 733 [place] REFILL [id number] 07/16 07/16 Family CYCLOBENZAP 78-2d68-159 /2014 [facility] 9-o497fa521 Health , [place] 26f [place] REFILL [id number] 07/16 07/16 Family CYCLOBENZAP 8e-46b4-16f /2014 [facility] 7-o398065jw [facility] , [place] 4e9 [place] REFILL [id number] 07/16 07/16 Family CYCLOBENZAP 0d-4492-a92 /2014 [facility] R[facility] e-10ti4j13k Health , [place] fda [place] REFILL [id number] 07/16 07/16 Family CLONAZEPAM c8-18p3-hgy /2014 [facility] 1-x33mcf82s Health , [place] e8f [place] REFILL [id number] 07/16 07/16 Family CLONAZEPAM 77-4195-8ba /2014 [facility] 7-ayo53r1a1 Health , [place] 3f2 [place] REFILL [id number] 07/16 07/16 Family CLONAZEPAM b9-38h3-zgv /2014 [facility] [id number] [facility] , [place] 93d [place] [id number] 07/16 07/16 Family CLONAZEPAM [id number] /2014 [facility] d-[id number] [facility] [place] e41 [place] [id number] 07/16 07/16 Family CLONAZEPAM [id number] /2014 [facility] [id number] [facility] [place] acc [place] [id number] 07/16 07/16 Family CLONAZEPAM [id number] /2014 [facility] [id number] [place] 38f [place] [id number] 07/16 07/16 [facility] CLONAZEPAM [id number] /2014 [facility] [id number] [facility] [place] d44 [place] [id number] 07/16 07/16 Family CLONAZEPAM [id number] /2014 [facility] [id number] [place] , [place] 326 [place] [id number] 07/16 07/16 Family CLONAZEPAM [id number] /2014 [facility] [id number] [place] 8b0 [place] [id number] 07/16 07/16 Family CLONAZEPAM [id number] /2014 [facility] [id number] [facility] [place] f57 [place] [id number] 07/16 07/16 Family TRAZADONE [id number] /2014 [facility] [id number] [facility] [place] c8b [place] [id number] 07/16 07/16 Family TRAZADONE [id number]-[id number] /2014 [facility] [id number] [place] 96f [place] [id number] 07/16 07/16 Family TRAZADONE [id number] /2014 [facility] b-[id number] [facility] , [place] 796 [place] [id number] 07/16 07/16 Family TRAZADONE [id number] /2014 [facility] [id number] [facility] , [place] 949 [place] [id number] 07/16 07/16 Family TRAZADONE [id number] /2014 [facility] [id number] [facility] , [place] 7ac [place] [id number] 07/16 07/16 Family TRAZADONE [id number] /2014 [facility] b-[id number] [facility] [place] 335 [place] [id number] 07/16 07/16 Family TRAZADONE [id number]-[id number] /2014 [facility] [id number] [place] , [place] 540 [place] [id number] 07/16 07/16 Family TRAZADONE [id number] /2014 [facility] [id number] [facility] [place] 3b1 [place] [id number] 07/16 07/16 Family TRAZADONE [id number]-[id number]-[id number] /2014 [facility] [id number] [place] ec8 [place] [id number] 07/16 07/16 Family TRAZADONE [id number]-[id number] /2014 [facility] d-[id number] [facility] [place] 13a [place] [id number] 07/16 07/16 Family TRA[facility]ADONE [id number] /2014 [facility] [id number] [facility] [place] 42c [place] [id number] 07/16 07/16 Family TRAZADONE [id number] /2014 [facility] [id number] [facility] [place] ac5 [place] [id number] 07/16 07/16 Family TRAZADONE [id number]-[id number] /2014 [facility] d-[id number] [facility] [place] 0d5 [place] [id number] 07/16 07/16 Family TRAZADONE [id number] /2014 [facility] a-[id number] [place] , [place] 38a [place] [id number] 07/16 07/16 Family TRAZADONE [id number] /2014 [facility] d-[id number] [place] 3e8 [place] [id number] 07/16 07/16 Family TRAZADONE [id number]-[id number] /2014 [facility] e-[id number] [place] 496 [place] [id number] 07/16 07/16 Family TRAZADONE [id number] /2014 [facility] [id number] [place] , [place] 562 [place] [id number] 07/16 07/16 [facility] TRAZADONE [id number]-j87 /2014 [facility] c-[id number] [place] 6b3 [place] REFILL [id number] 07/16 07/16 Family TRAZADONE c9-455d-b3f /2014 [facility] e-[id number] [place] , [place] 6fa [place] REFILL [id number] 07/16 07/16 Family TRAZADONE 73-438a-84a /2014 [facility] [id number] [place] , [place] 441 [place] REFILL [id number] 07/16 07/16 Family CYCLOBENZAP d0-67n5-iu2 /2014 [facility] RINE b-5l9tlz87x [facility] , [place] d42 [place] REFILL [id number] 07/16 07/16 Family CYCLOBENZAP 49-43e3-7uf /2014 [facility] RINE 2-vgb49hv5a [facility] , [place] 64e [place] REFILL [id number] 07/16 07/16 Family CYCLOBENZAP 9c-4717-8f2 /2014 [facility] RINE c-933uu6q84 [facility] , [place] 446 [place] REFILL [id number] 07/16 07/16 Family CYCLOBENZAP a6-4499-818 /2014 [facility] RINE 2-34453n51h [place] , [place] 294 [place] RE[place]LL [id number] 07/16 07/16 Family CYCLOBENZAP 51-6c87-n78 /2014 [facility] RINE 1-[id number] [facility] , [place] d6a [place] REFILL [id number] 07/16 07/16 Family CYCLOBENZAP 7b-6p91-9g4 /2014 [facility] RINE 5-6f3k04bd0 [place] , [place] fa0 [place] RE[place]LL [id number] 07/16 07/16 Family CYCLOBENZAP 24-494d-9ab /2014 [facility] RINE a-[id number] [facility] , [place] 17b [place] REFILL [id number] 07/16 07/16 Family CLONAZEPAM 8d-414a-b66 /2014 [facility] [id number] [facility] [place] 6cc [place] RE[place]LL [id number] 07/16 07/16 Family CLONAZEPAM 5d-401d-a90 /2014 [facility] 3-[id number] [facility] [place] 9c2 [place] RE[place]LL [id number] 07/16 07/16 Family CLONAZEPAM 70-471f-b99 /2014 [facility] f-[id number] [facility] , [place] 229 [place] RE[place]LL [id number] 07/16 07/16 SL Family CLONAZEPAM b3-458f-95b /2014 [facility] f-6025n7k16 [facility] , [place] 5ab [place] RE[place]LL [id number] 07/16 07/16 Family CLONAZEPAM 84-8n48-48r /2014 [facility] 3-hqs2nv679 [facility] , [place] 293 [place] RE[place]LL [id number] 07/16 07/16 Family CLONAZEPAM 1c-49dd-93c /2014 [facility] e-k413jw2y0 [place] , [place] 383 [place] RE[place]LL [id number] 07/16 07/16 Family CLONAZEPAM f8-9cn1-6f9 /2014 [facility] b-8v00ww108 [facility] , [place] d1a [place] REFILL [id number] 07/16 07/16 Family TRAZADONE 67-85f4-90r /2014 [facility] d-[id number] [facility] [place] 80b [place] [id number] 07/16 07/16 Family TRAZADONE ec-15j0-g8i /[facility] a-[id number] [facility] , [place] 19a [place] [id number] 07/16 07/16 Family TRAZADONE 40-0v0v-9u2 /2014 [facility] c-[id number] [facility] , [place] e15 [place] [id number] 07/16 07/16 Family TRAZADONE 2c-7k9n-110 /2014 [facility] f-[id number] [facility] , [place] cc4 [place] [id number] 07/16 07/16 Family TRAZADONE 87-4770-bfb /2014 [facility] [id number] [facility] [place] 6dc [place] RE[place]LL [id number] 07/16 07/16 Family TRAZADONE a8-4509-bbc /2014 [facility] [id number] [facility] , [place] 21d [place]LL [id number] 07/16 07/16 Family TRAZADONE e2-83v0-urw /2014 [facility] a-[id number] [facility] , [place] 147 [place] RE[place]LL [id number] 07/16 07/16 Family TRAZADONE e3-9k33-049 /2014 [facility] [id number] [facility] , [place] e1a [place]LL [id number] 07/16 07/16 Family TRAZADONE 57-98i7-367 /2014 [facility] 4-wdc9n77n1 [facility] , [place] 0f6 [place] [id number] 07/16 07/16 Family TRAZADONE f4-6s9i-ad3 /2014 [facility] [id number] [facility] [place] 30b [place] [id number] 07/16 07/16 Family TRAZADONE 12-4dbb-818 /2014 [facility] [id number] [facility] , [place] cf3 [place] [id number] 07/16 07/16 Family TRAZADONE fe-4cbd-af2 /2014 [facility] f-[id number] [facility] [place] 4b8 [place] [id number] 07/16 07/16 Family TRAZADONE 0a-4w93-ams /2014 [facility] b-65m46soo9 [facility] , [place] f9a [place] [id number] 07/16 07/16 Family TRAZADONE 4d-8d3p-l09 /2014 [facility] 2-00dji5a79 [facility] , [place] 2dd [place] TOXICOLOGY- [id number] 08/08 08/08 Family -ADDERALL a7-2q11-l95 /2014 [facility] 0-rt4la0q1k [facility] [place] 76d [place] TOXICOLOGY- [id number] 08/08 08/08 Family -ADDERALL d6-417d-913 /2014 [facility] 2-og4g1lx4m [facility] , [place] 66d [facility] TOXICOLOGY- [id number] 08/08 08/08 SL Family -ADDERALL 6e-81x4-880 /2014 [facility] 8-7kuh6t4k4 [facility] , [place] e04 [facility] TOXICOLOGY- [id number] 08/08 08/08 SL Family -ADDERALL df-7n47-apq /2014 [facility] 5-5jp1i0qj0 [facility] , [place] f59 [facility] TOXICOLOGY- [id number] 08/08 08/08 Family -ADDERALL 36-03r7-bu4 /2014 [facility] 3-i6660zl55 [facility] , [place] 3c9 [facility] TOXICOLOGY- [id number] 08/08 08/08 Family -ADDERALL 80-4b90-873 /2014 [facility] 8-[id number] [facility] , [place] 391 [facility] TOXICOLOGY- [id number] 08/08 08/08 Family -ADDERALL 26-0j43-342 /2014 [facility] 9-35nhv7861 [facility] , [place] 4d9 [facility] TOXICOLOGY- [id number] 08/08 08/08 Family -ADDERALL 43-4899-a4b /2014 [facility] b-xgnl2f129 [facility] , [place] fc5 [facility] TOXICOLOGY- [id number] 08/08 08/08 Family -ADDERALL ed-59h6-je8 /2014 [facility] e-74658z2y5 [facility] , [place] 5ac [facility] TOXICOLOGY- [id number] 08/08 08/08 Family -ADDERALL b8-4ebd-a6d /2014 [facility] 4-[id number] [facility] , [place] ceb [place] TOXICOLOGY- [id number] 08/08 08/08 SL Family -ADDERALL 4f-41de-924 /2014 [facility] a-[id number] [facility] , [place] aa5 [facility] TOXICOLOGY- [id number] 08/08 08/08 Family -ADDERALL a6-4239-b00 /2014 [facility] d-[id number] [facility] , [place] c85 [place] TOXICOLOGY- [id number] 08/08 08/08 Family -ADDERALL 2e-6c37-201 /2014 [facility] c-[id number] [facility] , [place] 178 [place] TOXICOLOGY- [id number] 08/08 08/08 Family -ADDERALL 29-1ko5-6t3 /2014 [facility] b-kt62k862c [facility] , [place] 532 [place] TOXICOLOGY- [id number] 08/08 08/08 Family -ADDERALL a4-2e69-o2r /2014 [facility] d-7qi6d79a4 [facility] , [place] 2c6 [place] TOXICOLOGY- [id number] 08/08 08/08 Family -ADDERALL 56-44fa-a13 /2014 [facility] d-[id number] [facility] , [place] c0b [place] TOXICOLOGY- [id number] 08/08 08/08 Family -ADDERALL b1-68l4-vio /2014 [facility] 1-88dyfvz16 [facility] , [place] c72 [place] Unknown [id number] 08/19 08/19 Family 3d-7ys8-825 /2015 [facility] 8-7420ji0t0 [facility] [place] 9fd [place] Unknown [id number] 08/19 08/19 Family bc-4418-b87 /2015 [facility] 5-49590i911 [facility] , [place] 577 [facility] Unknown [id number] 08/19 08/19 Family a7-4kt4-sg1 /2015 [facility] b-f3kq7744k [facility] [place] 77a [place] Unknown [id number] 08/19 08/19 Family 3f-44db-a50 /2015 [facility] f-[id number] [facility] , [place] e2e [place] Unknown [id number] 08/19 08/19 Family ec-7gm8-641 /2015 [facility] 7-da7r523px [facility] , [place] c60 [place] Unknown [id number] 08/19 08/19 Family 42-4ecb-a49 /2015 [facility] 3-f14lb6zw1 [facility] , [place] 955 [place] Unknown [id number] 08/19 08/19 Family 72-4628-be3 /2015 [facility] 7-779hto181 [facility] , [place] f80 [place] Unknown [id number] 08/19 08/19 Family f2-02n4-k3b /2015 [facility] [id number] [facility] , [place] c0d [place] Unknown [id number] 08/19 08/19 Family e3-74i2-w1x /2015 [facility] 4-24w1km52a [facility] , [place] 615 [place] Unknown [id number] 08/19 08/19 Family 34-5yq5-836 /2015 [facility] 2-[id number] [facility] , [place] c73 [place] Unknown [id number] 08/19 08/19 Family 80-8a99-3w0 /2015 [facility] a-[id number] [facility] [place] 8d7 [place] Unknown [id number] 08/19 08/19 Family 4c-3y69-9yc /2015 [facility] 3-2dym67xd0 [facility] [place] 594 [place] Unknown [id number] 08/19 08/19 Family 2e-08e8-yn7 /2015 [facility] 6-s2ohdaor0 [facility] , [place] ac8 [place] Unknown [id number] 08/19 08/19 Family 6c-4699-b8f /2015 [facility] 7-0tf44rk09 [facility] [place] 02d [place] Unknown [id number] 08/19 08/19 Family 77-1t63-680 /2015 [facility] f-[id number] [facility] , [place] 8ae [place] Unknown [id number] 08/19 08/19 Family fb-0f4b-ub2 /2015 [facility] c-0525sn1g7 [facility] , [place] 708 [place] Unknown [id number] 08/19 08/19 Family 7a-6i55-1ks /2015 [facility] 9-[id number] [facility] , [place] 5f3 [place] REFILL REQ- [id number] 11/07 11/07 SL Family CLONAZEPAM ae-4o31-6no /2015 [facility] d-[id number] [facility] , [place] 307 [place] REFILL REQ- [id number] 11/07 11/07 SL Family CLONAZEPAM 76-6zh4-e56 /2015 [facility] 2-06j6j7t7z [facility] , [place] 729 [place] REFILL REQ- [id number] 11/07 11/07 SL Family CLONAZEPAM 1e-4bfe-a52 /2015 [facility] 5-2f634pk8q [facility] , [place] e71 [place] REFILL REQ- [id number] 11/07 11/07 SL Family CLONAZEPAM b0-46j7-9bi /2015 [facility] 2-j687864kc [facility] , [place] dc7 [place] REFILL REQ- [id number]-[id number] 11/07 11/07 SL Family CLONAZEPAM 68-49o5-rdq /2015 [facility] 1-g48vak18x [facility] , [place] e4e [place] REFILL REQ- [id number] 11/07 11/07 SL Family CLONAZEPAM 9a-482f-bb6 /2015 [facility] 7-c8703i8q5 [facility] , [place] a20 [place] REFILL REQ- [id number] 11/07 11/07 SL Family CLONAZEPAM 09-6p28-s33 /2015 [facility] 1-080704jd0 [facility] , [place] 60b [place] REFI[place] REQ- [id number] 11/07 11/07 SL Family CLONAZEPAM 2a-4452-acc /2015 [facility] 6-45p789gfe [facility] , [place] c27 [place] REFILL REQ- [id number] 11/07 11/07 SL Family CLONAZEPAM 84-40cc-8bc /2015 [facility] 1-3r78kwyzr [facility] , [place] ebe [place] REFILL REQ- [id number] 11/07 11/07 SL Family CLONAZEPAM f6-3f77-ckf /2015 [facility] 8-[id number] [facility] , [place] 2e8 [place] REFI[place] REQ- [id number]-89 11/07 11/07 SL Family CLONAZEPAM ac-493d-a2d /2015 [facility] f-1511guj11 [facility] , [place] 3d4 [place] REFI[place] REQ- [id number] 11/07 11/07 SL Family CLONAZEPAM 4f-412b-8a6 /2015 [facility] d-9o40l34q3 [facility] , [place] 5d7 [place] REFI[place] REQ- [id number] 11/07 11/07 Family CLONAZEPAM ee-7y29-4ri /2015 [facility] 8-1mno09w01 [facility] , [place] 47a [place] REFILL REQ- [id number] 11/07 11/07 Family CLONAZEPAM 4c-416b-bd7 /2015 [facility] 0-r629t871u [facility] , [place] 38c [place] REFILL REQ- [id number] 11/07 11/07 Family CLONAZEPAM 76-72k6-5l5 /2015 [facility] 6-71nb6b733 [facility] , [place] 6e4 [place] REFILL REQ- [id number] 11/07 11/07 Family CLONAZEPAM e1-4715-b10 /2015 [facility] 3-354p68w2r [facility] , [place] 277 [place] REFILL REQ- [id number] 11/08 11/08 Family TRAZODONE 4d-4254-843 /2015 [facility] 1-y33o44lx3 Health , [place] ed5 [place] REFILL REQ- [id number] 11/08 11/08 Family TRAZODONE 0c-4466-8cd /2015 [facility] c-l1xsdi4p0 [facility] , [place] 604 [place] REFILL REQ- [id number] 11/08 11/08 Family TRAZODONE b0-4644-be2 /2015 [facility] e-8c0e923rf [facility] , [place] 330 [place] REFILL REQ- [id number] 11/08 11/08 Family TRAZODONE 1c-417a-8b8 /2015 [facility] 7-q96455l4l [facility] , [place] 727 [place] REFILL REQ- [id number] 11/08 11/08 Family TRAZODONE 1f-7uy4-8dn /2015 [facility] 5-e33649s64 Health , [place] f85 [place] REFILL REQ- [id number]-yf 11/08 11/08 Family TRAZODONE e2-4ede-a24 /2015 [facility] 1-h736m8813 [facility] , [place] c51 [place] REFILL REQ- [id number] 11/08 11/08 Family TRAZODONE 5e-5s86-0i5 /2015 [facility] c-7wr19s370 [facility] , [place] 6c7 [place] REFILL REQ- [id number] 11/08 11/08 Family TRAZODONE dd-5tr5-2ws /2015 [facility] a-g4b3goxk9 Health , [place] 37c [place] REFILL REQ- [id number] 11/08 11/08 Family TRAZODONE 5f-9e86-i5b /2015 [facility] 2-0jh44e6l3 [facility] , [place] 118 [place] REFILL REQ- [id number] 11/08 11/08 Family TRAZODONE 16-4405-a1b /2015 [facility] [id number] Health , [place] c34 [place] REFILL REQ- [id number] 11/08 11/08 Family TRAZODONE ff-29k1-1to /2015 [facility] 7-[id number] Health , [place] f84 [place] REFILL REQ- [id number] 11/08 11/08 Family TRAZODONE 86-2t4t-1c4 /2015 [facility] [id number] Health , [place] f36 [place] REFILL REQ- [id number]-97 11/08 11/08 Family TRAZODONE d0-4249-bc5 /2015 [facility] d-4n6ibmqgx Health , [place] da1 [place] REFILL REQ- [id number] 11/08 11/08 Family TRAZODONE b0-42b8-dm2 /2015 [facility] 2-dmoj129w5 Health , [place] 920 [place] REFILL REQ- [id number] 11/08 11/08 SL Family TRAZODONE 28-55i1-79t /2015 [facility] b-[id number] [facility] , [place] a2e [place] TOX [id number] 12/05 12/05 SL Family d7-4175-a4c /2015 [facility] a-1ok3fr06s [facility] , [place] bcf [place] TOX [id number]-4l 12/05 12/05 SL Family ab-7x3x-fh6 /2015 [facility] 8-35hq686su [facility] , [place] 74d [place] TOX [id number] 12/05 12/05 SL Family c0-4667-b15 /2015 [facility] d-y5qs8092m [facility] , [place] 787 [place] TOX [id number]-gv 12/05 12/05 SL Family 7d-9hg3-5a4 /2015 [facility] 4-7454cq480 Health , [place] ac1 [facility] TOX [id number] 12/05 12/05 SL Family 4a-6jl3-v32 /2015 [facility] 8-e540m27x8 [facility] , [place] 8c7 [place] TOX [id number] 12/05 12/05 Family 5e-98d7-uz4 /2015 [facility] 7-m0jdnpq62 [facility] , [place] ca6 [place] TOX [id number] 12/05 12/05 SL Family 2e-47cc-b56 /2015 [facility] c-25gxzk76s [facility] , [place] 118 [place] TOX [id number] 12/05 12/05 SL Family 74-4daa-a3c /2015 [facility] c-84qj0hxwj [facility] , [place] 255 [place] TOX [id number]-61 12/05 12/05 SL Family 1f-2d97-2c8 /2015 [facility] 9-c2c6au809 [facility] , [place] db6 [place] TOX [id number]-[id number] 12/05 12/05 SL Family d9-40fc-928 /2015 [facility] [id number] [facility] , [place] 127 [place] TOX [id number] 12/05 12/05 SL Family 23-495a-bf8 /2015 [facility] 3-o9019q9c1 [facility] , [place] 91b [place] Unknown [id number] 12/29 12/29 Family 26-451f-ac8 /2015 [facility] e-2v9l2e8p4 [facility] , [place] de5 [place] Unknown [id number] 12/29 12/29 Family 65-2yk3-g12 /2015 [facility] 8-m75ak033g [facility] , [place] 4bb [place] Unknown [id number] 12/29 12/29 Family 8f-37x0-48e /2015 [facility] c-[id number] [facility] , [place] 2f5 [place] Unknown [id number] 12/29 12/29 Family fc-1zt0-i3a /2015 [facility] [id number] Health , [place] ddb [place] Unknown [id number] 12/29 12/29 Family 2a-1dk4-8p3 /2015 [facility] 7-[id number] [facility] , [place] efb [place] Unknown [id number] 12/29 12/29 Family 59-4143-a68 /2015 [facility] 5-n4mu526u8 [facility] , [place] 8ba [place] Unknown [id number]-e9 12/29 12/29 Family fc-438f-a2a /2015 [facility] [id number] [facility] , [place] ad7 [place] Unknown [id number] 12/29 12/29 Family 50-44df-97f /2015 [facility] f-[id number] [facility] , [place] 53e [place] Unknown [id number] 12/29 12/29 Family 39-426e-963 /2015 [facility] d-328j8m5h6 [facility] , [place] 9b9 [place] Unknown [id number] 12/29 12/29 Family a5-408a-90a /2015 [facility] 5-067014xr6 Health , [place] d1e [place] Unknown [id number] 12/29 12/29 Family 7d-4123-be3 /2015 [facility] 3-l085yi539 [facility] , [place] 099 [place] Unknown [id number] 12/29 12/29 Family b7-8z84-151 /2015 [facility] 6-6sf9241hq [facility] , [place] 43f [place] Unknown [id number] 12/29 12/29 Family 00-4209-a08 /2015 [facility] b-9223hdv25 Health , [place] 1a1 [place] Unknown [id number] 12/29 12/29 Family 67-437c-b39 /2015 [facility] [id number] Health , [place] e70 [place] REFILL REQ- [id number] 01/08 01/08 Family CLONAZEPAM 32-4608-9c0 /2015 [facility] 9-c69rf6486 Health , [place] 3bd [place] REFILL REQ- [id number] 01/08 01/08 Family CLONAZEPAM 5d-4059-ba1 /2015 [facility] d-[id number] Health , [place] 38a [place] REFILL REQ- [id number]-mj 01/08 01/08 Family CLONAZEPAM 97-40bc-999 /2015 [facility] 8-7y2ym7xho Health , [place] 596 [place] REFILL REQ- [id number] 01/08 01/08 Family CLONAZEPAM d2-7j65-60r /2015 [facility] 6-2s0y43v7j Health , [place] 1e8 [place] REFILL REQ- [id number] 01/08 01/08 Family CLONAZEPAM 05-452e-8ed /2015 [facility] d-r0h027gjr Health , [place] b1f [place] REFILL REQ- [id number] 01/08 01/08 Family CLONAZEPAM a6-4611-815 /2015 [facility] [id number] Health , [place] 61f [place] REFILL REQ- [id number] 01/08 01/08 Family CLONAZEPAM ba-473a-896 /2015 [facility] 1-l332471vn [facility] , [place] 149 [place] REFILL REQ- [id number] 01/08 01/08 Family CYCLOBENZAP ad-6x9h-495 /2015 [facility] RINE 4-8054w3od4 Health , [place] 2b7 [place] REFILL REQ- [id number]-57 01/08 01/08 Family CYCLOBENZAP 72-7s6p-9am /2015 [facility] RINE f-[id number] Health , [place] 6cf [place] REFILL REQ- [id number] 01/08 01/08 Family CYCLOBENZAP c2-469a-a05 /2015 [facility] RINE [id number] [facility] , [place] 67f [place] REFILL REQ- [id number] 01/08 01/08 Family CYCLOBENZAP 78-46ab-ab5 /2015 [facility] RINE 0-3715vso76 Health , [place] 96d [place] REFILL REQ- [id number] 01/08 01/08 Family CYCLOBENZAP c9-4780-8ee /2015 [facility] RINE 0-jt41dvr4z [facility] , [place] c23 [place] REFILL REQ- [id number]-[id number] 01/08 01/08 Family CYCLOBENZAP 62-2am6-k51 /2015 [facility] RINE 1-[id number] [facility] , [place] 836 [place] REFILL REQ- [id number] 01/08 01/08 Family CYCLOBENZAP 3e-11k9-i5u /2015 [facility] RINE 0-bx8o9d2c5 Health , [place] 71c [place] REFILL REQ- [id number] 01/08 01/08 Family CLONAZEPAM 28-26e1-667 /2015 [facility] e-uq1314w5m [facility] , [place] 720 [place] REFILL REQ- [id number] 01/08 01/08 Family CLONAZEPAM 52-1wp8-f8a /2015 [facility] e-6nu87zf16 [facility] , [place] c82 [place] REFILL REQ- [id number] 01/08 01/08 Family CLONAZEPAM 24-3r11-mv7 /2015 [facility] 6-1zmc4kx87 [facility] , [place] 38a [place] REFILL REQ- [id number] 01/08 01/08 Family CLONAZEPAM 26-46db-930 /2015 [facility] 4-q98yvmy93 [facility] , [place] cf8 [place] REFILL REQ- [id number] 01/08 01/08 Family CLONAZEPAM 55-4fca-af1 /2015 [facility] a-9791crw00 Health , [place] 5d2 [place] REFILL REQ- [id number] 01/08 01/08 Family CLONAZEPAM 6d-8hi1-om6 /2015 [facility] c-[id number] Health , [place] 73d [place] REFILL REQ- [id number] 01/08 01/08 Family CYCLOBENZAP 7f-442c-980 /2015 [facility] RINE 9-n512ma0o5 Health , [place] 465 [place] REFILL REQ- [id number] 01/08 01/08 Family CYCLOBENZAP bd-1c46-61a /2015 [facility] RINE a-x7k4lrigf Health , [place] 93e [place] REFILL REQ- [id number] 01/08 01/08 Family CYCLOBENZAP c6-44ed-826 /2015 [facility] RINE 8-205j98tk3 Health , [place] e27 [place] REFILL REQ- [id number] 01/08 01/08 Family CYCLOBENZAP 8a-05m5-h0m /2015 [facility] RINE d-rz90n17t6 Health , [place] b64 [place] REFILL REQ- [id number] 01/08 01/08 Family CYCLOBENZAP c6-85e9-3df /2015 [facility] RINE 9-wc6029pjj [facility] , [place] 6cb [place] REFILL REQ- [id number] 01/08 01/08 Family CYCLOBENZAP bf-46ef-b7b /2015 [facility] RINE 8-4v8zq4p9y [facility] , [place] 7d8 [place] ADD ON TOX [id number]-[id number] 03/24 03/24 SL Family PER 81-408e-83e /2015 [facility] [place] 9-l58ken937 Health , [place] d3c [place] ADD ON TOX [id number]-gj 03/24 03/24 SL Family PER 1c-451d-927 /2015 [facility] [place] 4-59336f5jl [facility] , [place] 3c7 [place] ADD ON TOX [id number] 03/24 03/24 SL [facility] PER 0f-4142-af2 /2015 [facility] [id number] Health , [place] ad9 [place] ADD ON TOX [id number]-k6 03/24 03/24 SL Family PER d1-4321-8ff /2015 [facility] [place] c-n18oj08k0 [facility] , [place] 478 [place] ADD ON TOX [id number] 03/24 03/24 SL [facility] PER d7-5e5h-et9 /2015 [facility] 4-u59m6z250 Health , [place] 075 [place] ADD ON TOX [id number] 03/24 03/24 SL Family PER 1b-4466-9f4 /2015 [facility] [place] e-w9b985xn6 Health , [place] 65f [place] ADD ON TOX [id number] 03/24 03/24 SL [facility] PER a1-4466-92d /2015 [facility] 5-l555a31yz Health , [place] 30c [place] REFILL REQ- [id number] 03/24 03/24 Family TRAZODONE 89-44w3-g93 /2015 [facility] d-rl7ka59v3 Health , [place] d01 [place] REFILL REQ- [id number] 03/24 03/24 Family TRAZODONE 11-4138-a8f /2015 [facility] [id number] Health , [place] ee9 [place] REFILL REQ- [id number] 03/24 03/24 Family TRAZODONE b5-62d9-654 /2015 [facility] b-m6195kt9l Health , [place] cf3 [place] REFILL REQ- [id number] 03/24 03/24 Family TRAZODONE 87-0on0-b40 /2015 [facility] [id number] [place] , [place] fef [place] REFILL REQ- [id number] 03/24 03/24 Family CLONAZEPAM [id number] /2015 [facility] [id number] [place] , [place] 625 [place] REFILL REQ- [id number] 03/24 03/24 SL Family CLONAZEPAM [id number] /2015 [facility] e-[id number] [place] , [place] 43c [place] REFILL REQ- [id number] 03/24 03/24 SL Family CLONAZEPAM [phone] /2015 [facility] [id number] [place] da1 [place] REFILL REQ- [id number] 03/24 03/24 Family CLONAZEPAM [id number]-[id number] /2015 [facility] 5-[id number] [place] ad6 [place] REFILL REQ- [id number] 03/24 03/24 Family TRAZODONE cc-[id number]-a17 /2015 [facility] d-[id number] [place] , [place] 642 [place] REFILL REQ- [id number] 03/24 03/24 Family TRAZODONE [id number]-[id number] /2015 [facility] [id number] [place] c38 [place] REFILL REQ- [id number] 03/24 03/24 Family TRAZODONE [id number] /2015 [facility] [id number] [place] , [place] 48e [place] REFILL REQ- [id number] 03/24 03/24 Family TRAZODONE 5d-[id number] /2015 [facility] [id number] [place] , [place] ce0 [place] REFILL REQ- [id number] 03/24 03/24 Family TRAZODONE [id number]-[id number] /2015 [facility] e-[id number] [place] , [place] ad2 [place] REFILL REQ- [id number] 03/24 03/24 Family TRAZODONE [id number]-952 /2015 [facility] 6-[id number] [place] , [place] 680 [place] REFILL REQ- [id number] 03/24 03/24 Family CLONAZEPAM [id number]-[id number] /2015 [facility] b-[id number] [place] 8e6 [place] REFILL REQ- [id number] 03/24 03/24 Family CLONAZEPAM [id number] /2015 [facility] [id number] [place] e0a [place] REFILL REQ- [id number] 03/24 03/24 Family CLONAZEPAM 53-4390-bd5 /2015 [facility] 5-[id number] [place] c8b [place] REFILL REQ- [id number] 03/24 03/24 Family CLONAZEPAM [phone] /2015 [facility] c-[id number] [place] , [place] 518 [place] REFILL REQ- [id number] 03/24 03/24 Family CLONAZEPAM [id number]-[id number]-w4b /2015 [facility] [id number] [place] c77 [place] REFILL REQ- [id number] 03/24 03/24 Family CLONAZEPAM [id number] /2015 [facility] [id number] [facility] , [place] 404 [place] Unknown [id number] 04/21 04/21 Family 0d-4685-ad0 /2015 [facility] 6-[id number] [place] cac [place] Unknown [id number] 04/21 04/21 Family [id number] /2015 [facility] [id number] [place] fee [place] Unknown [id number] 04/21 04/21 Family [id number] /2015 [facility] [id number] [place] , [place] 352 [place] Unknown [id number] 04/21 04/21 Family 4b-[id number] /2015 [facility] [id number] [place] af5 [place] Unknown [id number] 04/21 04/21 Family 7c-499b-b0e /2015 [facility] [id number] [place] b73 [place] Unknown [id number] 04/21 04/21 Family 73-48ba-b9a /2015 [facility] [id number] Health , PAUL 414 [place] Unknown [id number] 04/21 04/21 SL Family [id number]-[id number]-859 /2015 [facility] [id number] Health , PAUL c54 [place] Unknown [id number] 04/21 04/21 SL Family [id number]-410f-bb0 /2015 [facility] b-[id number] Health , PAUL fe6 [place] REFILL REQ- [id number] 06/17 06/17 Family CLONAZEPAM [id number] /2015 [facility] /CYCLOBENZA [id number] Health , PAUL MASTERSON [address] REFILL REQ- [id number] 06/17 06/17 Family CLONAZEPAM [id number] /2015 [facility] /CYCLOBENZA [id number] Health , PAUL MASTERSON [address] REFILL REQ- [id number] 06/17 06/17 Family CLONAZEPAM [id number] /2015 [facility] /CYCLOBENZA [id number] Health , PAUL MASTERSON [address] REFILL REQ- [id number] 06/17 06/17 Family CLONAZEPAM [id number] /2015 [facility] /CYCLOBENZA [id number] Health , PAUL MASTERSON [address] REFILL REQ- [id number] 06/17 06/17 Family CLONAZEPAM [id number] /2015 [facility] /CYCLOBENZA [id number] Health , PAUL MASTERSON [address] [place] REFILL REQ- [id number] 06/17 06/17 Family CLONAZEPAM [id number] /2015 [facility] /CYCLOBENZA [id number] Health , PAUL MASTERSON [address] [place] REFILL REQ- [id number] 06/30 06/30 Family TRAZODONE [id number] /2015 [facility] [id number] Health , PAUL [address] [place] REFILL REQ- [id number] 06/30 06/30 Family TRAZODONE [id number] /2015 [facility] [id number] Health , PA [address] [place] REFILL REQ- [id number] 06/30 06/30 Family TRAZODONE [id number] /2015 [facility] [id number] Health , [place] [address] [place] REFILL REQ- [id number] 06/30 06/30 Family TRAZODONE [id number] /2015 Family [facility] [id number] Health , PA [address] [place] REFILL REQ- [id number] 06/30 06/30 Family TRAZODONE [id number] /2015 [facility] [id number] Health , [place] [address] [place] medication [id number] 07/17 07/17 Family [id number] /2015 [facility] [id number] Health , PA a[address] [place] medication [id number] 07/17 07/17 Family [id number] /2015 [facility] [id number] Health , PA [address] [place] medication [id number] 07/17 07/17 Family [id number] /2015 [facility] [id number] Health , PA b4d [place] medication [id number] 07/17 07/17 Family [id number] /2015 [facility] [id number] Health , [place] [address] Unknown [id number] 09/22 09/22 Family [id number] /2016 [facility] [id number] Health , [place] [address] [place] Unknown [id number] 09/22 09/22 Family [id number] /2016 [facility] [id number] Health , [place] cd2 [place] Unknown [id number] 09/22 09/22 Family [id number] /2016 [facility] [id number] Health , [place] [address] [place] REFILL REQ- [id number] 10/06 10/06 Family CLONAZEPAM/ [id number] /2016 Family [facility] CYCLOBENZAP [id number] Ananth , PAUL PORTER [address] REFILL REQ- [id number] 10/06 10/06 Family CLONAZEPAM/ [id number] /2016 [facility] CYCLOBENZAP [id number] Ananth , PAUL PORTER [address] [place] REFILL REQ- [id number] 10/07 10/07 Family CLONAZEPAM/ [id number] /2016 [facility] CYCLOBENZAP [id number] Health , PAUL PORTER ffb Procedures Procedure Code Date Perfomer Comments Source Miscellaneous [id number] 1Brain bleed [facility] [place] <sup>1</sup> Miscellaneous [id number] 2C-spine [facility] [place] <sup>2</sup> Miscellaneous [id number] 3Broken neck [place] <sup>3</sup> Assessment and Plan No Data Provided for This Section Plan of Care No Data Provided for This Section Social History Social History Date Source Social History ElementQualifiersDate Reported 08/22/2016 [facility] Pets: . 3DOGS, 1 CAT Aug 22, 2016 Marital Status: . Aug 22, 2016 Caffeine: yes. COFFEE 1-2 CUPS/DAY, SODA 4-5CANS/DAY Aug 22, 2016 Exercise: no. none Aug 22, 2016 Drug use: no. Aug 22, 2016 Tobacco Use . Status: Current Smoker 1/2 pack a day VERIFIED BY LENA 08/22/16 Aug 22, 2016 Alcohol: no. 4 DRINKS A YEAR Aug 22, 2016 Travel ouside [place]: no. none Aug 22, 2016 Occupation: . disabled Aug 22, 2016 Social History ElementQualifiersDate Reported 09/04/2014 [facility] Tobacco Use: . Status former smoker Sep 04, 2014 Drug Use: . No Sep 04, 2014 Alcohol: . Yes, Rarely Sep 04, 2014 Family History No Data Provided for This Section Advance Directives No Data Provided for This Section Functional Status No Data Provided for This Section
--- OUTSIDE RECORDS SUMMARY | 2019-02-17 10:31 | XMS REPORT | Summary of Care ---
:1975 Author Encounter HQ Kater_mario(VLAD) [id number] Date(s): 09/18/14 - 09/18/14 [facility] Outpatient Imaging [address] Discharge Disposition: Home Physician Attending: Hesham Martinez MD Reason for Visit 780.93 - MEMORY LOSS Problem List Condition Effective Dates Status Health Status Informant Anxiety(Confirmed) Active Epidural hematoma(Confirmed) Active Pain(Confirmed) Active Substance abuse(Confirmed) Active Allergies, Adverse Reactions, Alerts Substance Reaction Severity Status NKDA Active Medications No data available for this section Medications Administered During Your Visit No data available for this section Immunizations No data available for this section
--- OUTSIDE RECORDS SUMMARY | 2019-02-17 10:31 | XMS REPORT ---
:1975 Author Organization eClinicalWorks Care Team Providers Name Role Phone CHIRAG NAIDU Provider Role Unavailable Allergies No Known Allergies Problems Problem Type Condition Code Onset Dates Condition Status Problem Depression, unspecified depression F32.9 Active type Problem Chronic pain disorder G89.4 Active Problem Anxiety F41.9 Active Problem Attention deficit disorder F90.0 Active Assessment Depression, unspecified depression F32.9 Active type Medications Medication Code System Code Instructions Start Date End Date Status Dosage clonazepam [facility] [id number] 1 mg orally 2 Mar 20, Active 1 tab(s) times a day 2014 Results No Known Results Summary Purpose eClinicalWorks Submission
--- OUTSIDE RECORDS SUMMARY | 2019-02-17 10:31 | XMS REPORT ---
:1975 Author Organization [employer]Clinical[employer] Care Team Providers Name Role Phone CHIRAG NAIDU Provider Role Unavailable Allergies No Known Allergies Problems Problem Type Condition Code Onset Dates Condition Status Problem Chronic pain disorder G89.4 Active Problem Attention deficit disorder F90.0 Active Problem Depression, unspecified depression F32.9 Active type Medications No Known Medications Results No Known Results Summary Purpose eClinicalWorks Submission
--- OUTSIDE RECORDS SUMMARY | 2019-02-17 10:31 | XMS REPORT ---
[...] Instructions Start Date End Date Status Dosage Bactrim DS [facility] 4204 800 mg-160 mg orally January 22, 1 tab(s) 2 times a day 2016 Results No Known Results Summary Purpose eClinicalWorks Submission
--- OUTSIDE RECORDS SUMMARY | 2019-02-17 10:31 | XMS REPORT ---
:1975 Author Organization [employer]ClinicalWorks Care Team Providers Name Role Phone CHIRAG NAIDU Provider Role Unavailable Allergies, Adverse Reactions, Alerts Substance Reaction Event Type N.K.D.A. Info Not Available Non Drug Allergy Problems Problem Type Condition Code Onset Dates Condition Status Assessment Thyromegaly E01.0 Active Problem Thyromegaly E01.0 Active Problem Anxiety F41.9 Active Problem Thyroid nodule E04.1 Active Problem Attention deficit disorder F90.0 Active Problem Depression, unspecified depression F32.9 Active type Problem Chronic pain disorder G89.4 Active Medications Medication Code Code Instructions Start End Status Dosage System Date Date clonazepam [facility] 64730697311 1 mg orally 2 Mar 20, Active 1 tab(s) times a day 2014 lithium [facility] 61722643798 600 mg orally 3 Active 1 cap(s) times a day Depakote ER [facility] 11617650919 500 mg orally Active not bid defined Cymbalta [facility] 11775677655 60 mg orally 2 May 16, Active 1 cap(s) times a day 2012 trazodone [facility] 82295331870 50 mg orally at May 16, Active 3 tab(s) hs 2012 cyclobenzaprine [facility] 15264698054 10 mg orally 3 November Active 1 tab(s) times a day prn 2013 Risperdal [facility] 55772940863 1 mg orally bid Active 1 tab Vital Signs Date/Time: May 17, 2018 BMI 24.69 Index Height 66 in Weight 153 lbs Pulse 72 /min Blood Pressure Diastolic 72 mm Hg Blood Pressure Systolic 110 mm Hg Results No Known Results Summary Purpose eClinicalWorks Submission
--- OUTSIDE RECORDS SUMMARY | 2019-02-17 10:31 | XMS REPORT ---
:1975 Author Organization eClinicalWorks Care Team Providers Name Role Phone EVANGELISTA CHIRAG Provider Role Unavailable Allergies, Adverse Reactions, Alerts Substance Reaction Event Type N.K.D.A. Info Not Available Non Drug Allergy Problems Problem Type Condition Code Onset Dates Condition Status Assessment Urinary tract infection, site N39.0 Active unspecified Assessment Complex regional pain syndrome type G56.40 Active 2 of upper extremity, unspecified laterality Assessment Complex regional pain syndrome type G57.70 Active 2 of lower extremity, unspecified laterality Problem Chronic pain disorder G89.4 Active Problem Attention deficit disorder F90.0 Active Problem Depression, unspecified depression F32.9 Active type Assessment Chronic pain disorder G89.4 Active Assessment Neuralgia M79.2 Active Assessment Encounter for general adult medical Z00.00 Active examination without abnormal findings Assessment Depression, unspecified depression F32.9 Active type Medications Medication Code Code Instructions Start End Status Dosage System Date Date Ciprofloxacin [facility] 48398570824 250 mg orally Active 1 tab(s) Hydrochloride every 12 hours cyclobenzaprine [facility] 34768735343 10 mg orally 3 November Active 1 tab(s) times a day prn 2013 clonazepam [facility] 27862680278 1 mg orally 2 Mar 20, Active 1 tab(s) times a day 2014 Risperdal [facility] 40711416047 1 mg orally bid Active 1 tab Depakote ER [facility] 62789063975 500 mg orally Active not bid defined trazodone [facility] [address]-04 50 mg orally at May 16, Active 3 tab(s) hs 2012 tramadol [facility] 52706558889 50 mg orally January Active 1 tab(s) every 4 hours 24, prn 2014 lithium [facility] 09076774664 600 mg orally 3 Active 1 cap(s) times a day Cymbalta [facility] 78259107014 60 mg orally 2 May 16, Active 1 cap(s) times a day 2012 Vital Signs Date/Time: November 14, 2016 BMI 24.85 Index Height 66 in Weight 154 lbs Pulse 91 /min Blood Pressure Diastolic 68 mm Hg Blood Pressure Systolic 100 mm Hg Results No Known Results Summary Purpose eClinicalWorks Submission
--- OUTSIDE RECORDS SUMMARY | 2019-02-17 10:31 | XMS REPORT | CCD ---
:1975 Author Organization [facility] Outpatient Imaging - [place] Care Team Providers Name Role Phone Edgardo Harris Consulting Provider Allergies, Adverse Reactions, Alerts Substance Reaction Status NKDA Active Problem List Condition Effective Dates Status Anxiety Active Epidural hematoma Active Pain Active Substance abuse Active
--- OUTSIDE RECORDS SUMMARY | 2019-02-17 10:31 | XMS REPORT ---
:1975 Author Organization eClinicalWorks Care Team Providers Name Role Phone CHIRAG NAIDU Provider Role Unavailable Allergies, Adverse Reactions, Alerts Substance Reaction Event Type N.K.D.A. Info Not Available Non Drug Allergy Problems Problem Type Condition Code Onset Dates Condition Status Assessment Neuralgia M79.2 Active Assessment Other fdc (current) drug Z79.899 Active therapy Assessment Chronic pain disorder G89.4 Active Assessment Anxiety F41.9 Active Problem Depression, unspecified depression F32.9 Active type Problem Chronic pain disorder G89.4 Active Problem Anxiety F41.9 Active Assessment Attention deficit disorder F90.0 Active Assessment Depression, unspecified depression F32.9 Active type Problem Attention deficit disorder F90.0 Active Assessment Tremor R25.1 Active Medications Medication Code Code Instructions Start End Status Dosage System Date Date lithium [facility] 13813511070 600 mg orally 3 Active 1 cap(s) times a day Ciprofloxacin ND 71868649864 250 mg orally Active 1 tab(s) Hydrochloride every 12 hours Depakote ER ND 83566596884 500 mg orally Active not bid defined Risperdal [facility] 61055146936 1 mg orally bid Active 1 tab Bactrim DS [facility] 99538644519 800 mg-160 mg January 22, Active 1 tab(s) orally 2 times 2016 a day cyclobenzaprine [facility] 46899599500 10 mg orally 10 November Active 1 tab(s) times a day prn 2013 trazodone [place] 05449244115 50 mg orally at May 16, Active 3 tab(s) hs 2012 tramadol ND 69366564988 50 mg orally January 31, Active 1 tab(s) every 4 hours 2014 prn Cymbalta ND 59665039664 60 mg orally 2 May 16, Active 1 cap(s) times a day 2012 clonazepam [place] 32087051351 1 mg orally 2 Mar 20, Active 1 tab(s) times a day 2014 Vital Signs Date/Time: Jun 01, 2017 BMI 25.18 Index Height 66 in Weight 156 lbs Pulse 94 /min Blood Pressure Diastolic 70 mm Hg Blood Pressure Systolic 108 mm Hg Results No Known Results Summary Purpose eClinicalWorks Submission
--- OUTSIDE RECORDS SUMMARY | 2019-02-17 10:31 | XMS REPORT ---
:1975 Author Organization eClinicalWorks Care Team Providers Name Role Phone EVANGELISTA CHIRAG Provider Role Unavailable Allergies No Known Allergies Problems Problem Type Condition Code Onset Dates Condition Status Problem Depression, unspecified depression F32.9 Active type Problem Chronic pain disorder G89.4 Active Problem Anxiety F41.9 Active Problem Attention deficit disorder F90.0 Active Medications No Known Medications Results No Known Results Summary Purpose eClinicalWorks Submission
--- OUTSIDE RECORDS SUMMARY | 2019-02-17 10:31 | XMS REPORT | CCD ---
:1975 Author Organization [facility] Team Providers Name Role Phone Delaney De Los Santos Augusto Consulting Provider Allergies, Adverse Reactions, Alerts Substance Reaction Status NKDA Active Problem List Condition Effective Dates Status Anxiety Active Epidural hematoma Active Pain Active Substance abuse Active Medications Medication Instructions Start Date End Date Status ketorolac 30 mg, Route: IVP, Drug 05/10/2013 05/10/2013 Completed form: INJ, ONCE, Dosing Weight 54.545, kg, Priority: STAT, Start date: 05/10/13 23:13:00, Stop date: 05/10/13 23:13:00 Saline Flush 0.9% 5 mL, Route: IVP, Drug 05/10/2013 05/11/2013 Discontinued Form: INJ, Dosing Weight 54.545, kg, PRN, PRN Line Flush, Start date: 05/10/13 21:30:00, Duration: 30 day, Stop date: 06/09/13 21:29:00 Phenergan 25 mg, 1 mL, Route: IM, 05/10/2013 05/10/2013 Completed Drug form: INJ, ONCE, Dosing Weight 54.545, kg, Priority: STAT, Start date: 05/10/13 22:37:00, Stop date: 05/10/13 22:37:00 Zofran 4 mg, 2 mL, Route: IVP, 05/10/2013 05/10/2013 Completed Drug form: INJ, ONCE, Dosing Weight 54.545, kg, Priority: STAT, Start date: 05/10/13 22:37:00, Stop date: 05/10/13 22:37:00 Simpson 5/325 oral tablet 1-2 tab, PO, Q4-6H, PRN, 05/10/2013 05/15/2013 Ordered 15 tab, Pain, Substitution Allowed, Maintenance Phenergan 25 mg oral 25 mg, 1 tab, PO, Q4H, 05/10/2013 Ordered tablet PRN, 15 tab, Nausea, Substitution Allowed Vital Signs Most recent to oldest 1 2 3 [Reference Range]: Temperature Oral 98.0 DegF 98.0 DegF 98.0 DegF [96.4-99.1 DegF] (05/10/2013 23:44:00) (05/10/2013 23:15:00) (05/10/2013 21: 23:00) Systolic Blood Pressure 146 mmHg 140 mmHg 141 mmHg [90-140 mmHg] *HI* (05/10/2013 23:15:00) *HI* (05/10/2013 23:44:00) (05/10/2013 22:20:00) Diastolic Blood Pressure 99 mmHg 90 mmHg 100 mmHg [60-90 mmHg] *HI* (05/10/2013 23:15:00) *HI* (05/10/2013 23:44:00) (05/10/2013 22:20:00) Respiratory Rate [14-20 18 BRMIN 18 BRMIN 18 BRMIN BRMIN] (05/10/2013 23:44:00) (05/10/2013 23:15:00) (05/10/2013 22:20:00) Peripheral Pulse Rate 71 bpm 85 bpm 90 bpm [60-100 bpm] (05/10/2013 23:44:00) (05/10/2013 23:15:00) (05/10/2013 22:20: 00) Weight 54.545 kg (05/10/2013 21:23:00) Results CHEMISTRY Most recent to oldest [Reference Range]: 1 Sodium Lvl [135-145 mEq/L] 137 mEq/L (05/10/2013 21:50:00) Potassium Lvl [3.5-5.1 mEq/L] 3.9 mEq/L (05/10/2013 21:50:00) Chloride Lvl [95-109 mEq/L] 101 mEq/L (05/10/2013 21:50:00) CO2 [24-32 mEq/L] 20 mEq/L *LOW* (05/10/2013 21:50:00) AGAP [10.0-20.0 mEq/L] 19.9 mEq/L (05/10/2013 21:50:00) Creatinine Lvl [0.5-1.4 mg/dL] 0.8 mg/dL (05/10/2013 21:50:00) eGFR 94 mL/min/1.73m2 1 *NA* (05/10/2013 21:50:00) BUN [7-22 mg/dL] 8 mg/dL (05/10/2013 21:50:00) B/C Ratio [6-25] 10 (05/10/2013 21:50:00) Glucose Lvl [70-99 mg/dL] 72 mg/dL 2 (05/10/2013 21:50:00) Total Protein [6.4-8.4 g/dL] 7.8 g/dL (05/10/2013 21:50:00) Albumin Lvl [3.5-5.0 g/dL] 4.4 g/dL (05/10/2013 21:50:00) Globulin [2.0-4.0 g/dL] 3.4 g/dL (05/10/2013 21:50:00) A/G Ratio [0.7-1.6] 1.3 (05/10/2013 21:50:00) Calcium Lvl [8.5-10.5 mg/dL] 8.6 mg/dL (05/10/2013 21:50:00) ALT [0-65 unit/L] 36 unit/L (05/10/2013 21:50:00) AST [0-37 unit/L] 39 unit/L *HI* (05/10/2013 21:50:00) Alk Phos [39-136 unit/L] 102 unit/L (05/10/2013 21:50:00) Bili Total [0.2-1.3 mg/dL] 0.3 mg/dL (05/10/2013 21:50:00) Etoh (%) .126 % 3 *NA* (05/10/2013 21:50:00) Ethanol Lvl 126 mg/dL 4 *NA* (05/10/2013 21:50:00) S Preg [Negative] Negative *NA* (05/10/2013 21:50:00) 1Result Comment: The eGFR is calculated using the CKD-EPI formula. In most young , healthy individualsthe eGFR will be >90 mL/min/1.73m2. The eGFR declines with age. An eGFR of 60-89 may be normal in some populations, particularly the elderly, for whom the CKD-EPI formula has not been extensively validated. Use of the eGFR is not recommended in the following populations: Individuals with unstable creatinine concentrations, including patients and those with serious co-morbid conditions. Patients with extremes in muscle mass or diet. The data above are obtained from the National Kidney Disease Education Program ( NKDEP) which additionally recommends that when the eGFR is used in patients with extremes of body mass index for purposesof drug dosing, the eGFR should be multiplied by the estimated BMI.2Interpretive Data: Adult reference range values reflect the clinical guidelines of the [place] [employer].3Interpretive Data: Negative Range: < 0.003% Toxic Range: >0.25%4Interpretive Data: Negative Range: <3 mg/dL Toxic Range: >250 mg/dLHEMATOLOGY Most recent to oldest [Reference Range]: 1 WBC [3.7-10.4 K/CMM] 10.1 K/CMM (05/10/2013 21:50:00) RBC [4.20-5.40 M/CMM] 4.08 M/CMM *LOW* (05/10/2013 21:50:00) Hgb [12.0-16.0 g/dL] 15.1 g/dL (05/10/2013 21:50:00) Hct [36.0-48.0 %] 44.4 % (05/10/2013 21:50:00) MCV [81.0-99.0 fL] 108.7 fL *HI* (05/10/2013 21:50:00) MCH [27.0-31.0 pg] 36.9 pg *HI* (05/10/2013 21:50:00) MCHC [32.0-36.0 g/dL] 34.0 g/dL (05/10/2013 21:50:00) RDW [11.5-14.5 %] 13.9 % (05/10/2013 21:50:00) Platelet [133-450 K/CMM] 280 K/CMM (05/10/2013 21:50:00) MPV [7.4-10.4 fL] 8.1 fL (05/10/2013 21:50:00) Segs [45.0-75.0 %] 65.2 % (05/10/2013 21:50:00) Lymphocytes [20.0-40.0 %] 25.9 % (05/10/2013 21:50:00) Monocytes [2.0-12.0 %] 7.6 % (05/10/2013 21:50:00) Eosinophils [0.0-4.0 %] 0.5 % (05/10/2013 21:50:00) Basophils [0.0-1.0 %] 0.8 % (05/10/2013 21:50:00) Segs-Bands # [1.5-8.1 K/CMM] 6.6 K/CMM (05/10/2013 21:50:00) Lymphocytes # [1.0-5.5 K/CMM] 2.6 K/CMM (05/10/2013 21:50:00) Monocytes # [0.0-0.8 K/CMM] 0.8 K/CMM (05/10/2013 21:50:00) Eosinophils # [0.0-0.5 K/CMM] 0.1 K/CMM (05/10/2013 21:50:00) Basophils # [0.0-0.2 K/CMM] 0.1 K/CMM (05/10/2013 21:50:00) Macrocyte [None Seen] 1+ *ABN* (05/10/2013 21:50:00) Procedures Procedures Date Related Diagnosis Miscellaneous operations 1 Miscellaneous operations 2 Miscellaneous operations 3 1Brain [id number] neck
--- OUTSIDE RECORDS SUMMARY | 2019-02-17 10:31 | XMS REPORT | CCD ---
:1975 Author Organization [facility] Outpatient [facility] Team Providers Name Role Phone Edgardo Harris Consulting Provider Allergies, Adverse Reactions, Alerts Substance Reaction Status NKDA Active Problem List Condition Effective Dates Status Anxiety Active Epidural hematoma Active Pain Active Substance abuse Active
--- OUTSIDE RECORDS SUMMARY | 2019-02-17 10:31 | XMS REPORT ---
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 Status former smoker Sep 04, 2014 Drug Use: . No Sep 04, 2014 Alcohol: . Yes, Rarely Sep 04, 2014 Summary Purpose eClinicalWorks Submission
--- OUTSIDE RECORDS SUMMARY | 2019-02-17 10:31 | XMS REPORT | CCD ---
:[address] [facility] Outpatient Imaging [place] Care Team Providers Name Role Phone Hilario Hu Consulting Provider Allergies, Adverse Reactions, Alerts Substance Reaction Status NKDA Active Problem List Condition Effective Dates Status Anxiety Active Epidural hematoma Active Pain Active Substance abuse Active
--- OUTSIDE RECORDS SUMMARY | 2019-02-17 10:31 | XMS REPORT ---
:1975 Author Organization eClinicalWorks Care Team Providers Name Role Phone CHIRAG NAIDU Provider Role Unavailable Allergies No Known Allergies Problems Problem Type Condition Code Onset Dates Condition Status Problem Thyromegaly E01.0 Active Problem Anxiety F41.9 Active Problem Thyroid nodule E04.1 Active Problem Attention deficit disorder F90.0 Active Problem Depression, unspecified depression F32.9 Active type Problem Chronic pain disorder G89.4 Active Medications No Known Medications Results No Known Results Summary Purpose eClinicalWorks Submission
--- OUTSIDE RECORDS SUMMARY | 2019-02-17 10:32 | XMS REPORT ---
:1975 Author Organization [employer]ClinicalWorks Care Team Providers Name Role Phone CHIRAG NAIDU Provider Role Unavailable Allergies, Adverse Reactions, Alerts Substance Reaction Event Type N.K.D.A. 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 Problem Depression, unspecified depression F32.9 Active type Problem Chronic pain disorder G89.4 Active Problem Anxiety F41.9 Active Assessment Depression, unspecified depression F32.9 Active type Assessment Chronic pain disorder G89.4 Active Problem Attention deficit disorder F90.0 Active Assessment Attention deficit disorder F90.0 Active Medications Medication Code Code Instructions Start End Status Dosage System Date Date Depakote ER [facility] 36655211709 500 mg orally Active not bid defined clonazepam [facility] 05452490057 1 mg orally 2 Mar 20, Active 1 tab(s) times a day 2014 cyclobenzaprine [facility] 45003214457 10 mg orally 3 November Active 1 tab(s) times a day prn 2013 lithium [facility] 91234833796 600 mg orally 3 Active 1 cap(s) times a day Risperdal [facility] 86549518985 1 mg orally bid Active 1 tab tramadol [facility] 00619102756 50 mg orally January 31, Active 1 tab(s) every 4 hours 2014 prn Cymbalta [facility] 75043064798 60 mg orally 2 May 16, Active 1 cap(s) times a day 2012 trazodone [facility] 00076984871 50 mg orally at May 16, Active 3 tab(s) hs 2012 Vital Signs Date/Time: Sep 17, 2017 BMI 25.01 Index Height 66 in Weight 155 lbs Pulse 94 /min Blood Pressure Diastolic 80 mm Hg Blood Pressure Systolic 112 mm Hg Results No Known Results Summary Purpose eClinicalWorks Submission
--- OUTSIDE RECORDS SUMMARY | 2019-02-17 10:32 | XMS REPORT ---
:1975 Author Organization eClinicalWorks Care Team Providers Name Role Phone CHIRAG NAIDU Provider Role Unavailable Encounters Encounter Location Date weight loss [facility], [place] November 28, 2013 Unknown [facility] Aug 14, 2014 refill [place] [facility] Sep 22, 2014 Unknown [facility], [place] 2014 ref[place] traz[place] [facility] December 29, 2013 ref[place] trazadone [facility] January 05, 2014 ref[place] traz[place] [facility] January 05, 2014 REFILL CLONAZPEM [facility] Mar 20, 2015 REFILL REQ- CLONAZEPAM [facility] November 08, 2015 TOXICOLOGY--[place]DERALL [facility] Aug 08, 2015 [place] [facility], 2015 [place] [facility], 2015 [place] [facility] Jul [place], 2015 [place] [facility], 2015 [place] [facility], 2015 REFILL CYCLOBENZAPRINE [facility] Jul 16, 2015 1 month f/[place] [facility] 22, 2014 EAR ACHE, PAIN IN HIP [facility] 31, 2015 [place] [facility] Apr [place], 2015 from e.r./[place]st [place] [facility], 2014 [place] [facility] Aug 19, 2015 Medications Medication Code System Code Instructions Start Date End Date Status Dosage clonazepam MULTUM 73887 1 mg orally 2 times Mar 20, 2015 Active 1 tab(s ) a day Social History Social History Element Qualifiers Date Reported Caffeine: yes. COFFEE, TEA, SODAS DIET OR REG, Aug 08, 2015 GILMA KNOWLES 08/08/2015 10:42:28 AM > Exercise: no. GILMA BETANCOURT 08/08/2015 10:42:22 AM > Aug 08, 2015 , none Drug use: no. Aug 08, 2015 Tobacco Use . Status: Current Smoker 1/2 pack a day Aug 08, 2015 VERIFIED BY 08/08/2015 Alcohol: no. GILMA BETANCOURT 08/08/2015 10:42:06 AM > Aug 08, 2015 none Travel ouside [place]: noGILMA GUARDADO 08/08/2015 10:42:32 AM > Aug 08, 2015 , none Summary Purpose eClinicalWorks Submission
--- OUTSIDE RECORDS SUMMARY | 2019-02-17 10:32 | XMS REPORT ---
:1975 Author Organization eClinicalWorks Care Team Providers Name Role Phone CHIRAG NAIDU Provider Role Unavailable Encounters Encounter Location Date REFILL CLONAZPEM [facility] Mar 20, 2015 REFILL REQ- [facility] Jun 17, 2016 CLONAZEPAM/CYCLOBENZAPRINE ADD ON TOX PER DR QUIROS [facility] Mar 24, 2016 [place]LL TRAZ[place] [facility] Jul 16, 2015 [place] TRAZAD[place] [facility] Jul [place], 2015 REFILL CLONAZE[place]AM [facility], 2015 REFILL CYCLOBENZAPRINE [facility] Jul [place], 2015 1 month f/[place] [facility] 22, 2014 EAR ACHE, PAIN IN HIP [facility], 2015 [place] [facility] Apr [place], 2015 from e.r./chest pain [facility] 22, 2014 [place] [facility] Aug 19, 2015 weight [place] [facility], 2013 [place] [facility] Aug [place], [facility] Sep 22, 2014 [place] [facility] 2014 [place] tra[place] [facility] 29, 2013 [place] trazadone [facility] January 05, 2014 [place] trazadone [facility] 05, 2014 REFILL REQ- CLONAZEPAM [facility], 2015 TOXICOLOGY--ADDERALL [facility] Aug 08, 2015 [place] [facility], 2015 ref[place] [facility], 2015 [place]X [facility] 06, 2015 REFILL REQ- CLONAZEPAM [facility] Mar 24, 2016 REFILL REQ- TRAZODONE [facility] Mar 24, 2016 [place] [facility] Apr [place], 2016 REFILL REQ- TRAZODONE [facility], [place] November 09, 2015 Unknown [facility], [place] December 30, 2015 REFILL REQ- CLONAZEPAM [facility], [place] January 09, 2016 REFILL REQ- CYCLOBENZAPRINE [facility], [place] January 09, 2016 Medications Medication Code System Code Instructions Start Date End Date Status Dosage cyclobenzaprine MULTUM 83971 10 mg orally 3 November 28, Active 1 tab(s) times a day prn 2013 clonazepam MULTUM 54236 1 mg orally 2 Mar 20, Active 1 tab(s) times a day 2014 Social History Social History Element Qualifiers Date Reported Caffeine: yes. Mar 24, 2016 Exercise: no. NANCI Dewitt 03/24/2016 10:27:56 AM Mar 24, 2016 > Drug use: no. Mar 24, 2016 Tobacco Use . Status: Current Smoker 1/2 pack a day Mar 24, 2016 VERIFIED BY LENA 03/24/16 Alcohol: no. 4 DRINKS A NANCI BURKETT 03/24/2016 Mar 24, 2016 10:27:47 AM > [facility] [place] NANCI Dewitt 03/24/2016 10:28:10 AM > Mar 24, 2016 Summary Purpose eClinicalWorks Submission
--- OUTSIDE RECORDS SUMMARY | 2019-02-17 10:32 | XMS REPORT ---
:1975 [facility] Team Providers Name Role Phone CHIRAG NAIDU Provider Role Unavailable Allergies, Adverse Reactions, Alerts Substance Reaction Event Type N.K.D.A. Info Not Available Non Drug Allergy Encounters Encounter Location Date weight loss [facility], [place] November 28, 2013 Unknown [facility] Aug 14, 2014 refill trazadone [facility] Sep 22, 2014 Unknown [facility], [place] 2014 refill trazadone [facility] December 29, 2013 refill trazadone [facility] January 05, 2014 refill trazadone [facility] January 05, 2014 REFILL CLONAZPEM [facility] Mar 20, 2015 TOXICOLOGY--ADDERALL [facility] Aug 08, 2015 REFILL [facility] January 22, 2015 refill req [facility] February 15, 2015 REFILL TRAZADONE [facility] Jul 16, 2015 REFILL TRAZADONE [facility] Jul 16[place] 2015 REFILL CLONAZEPAM [facility] Jul 16, 2015 REFILL CYCLOBENZAPRINE [facility] Jul 16, 2015 1 month f/up [facility] December 22, 2014 EAR ACHE, PAIN IN HIP [facility] January 31, 2015 Unknown [facility] Apr 29, 2015 from e.r./chest pain [facility] November 22, 2014 Unknown [facility] Aug 19, 2015 Problems Problem Type Condition ICD-9 Code Onset Dates Condition Status Assessment Other alf (current) drug Z79.899 Active therapy Assessment Attention deficit disorder F90.0 Active Social History Social History Element Qualifiers Date Reported Caffeine: yes. COFFEE, TEA, SODAS DIET OR REG, Aug 08, 2015 GILMA KNOWLES 08/08/2015 10:42:28 AM > Exercise: no. GILMA BETANCOURT 08/08/2015 10:42:22 AM > Aug 08, 2015 , none Drug use: no. Aug 08, 2015 Tobacco Use . Status: Current Smoker 1/2 pack a day Aug 08, 2015 VERIFIED BY 08/08/2015 Alcohol: GILMA BETANCOURT 08/08/2015 10:42:06 AM > Aug 08, 2015 none Travel ouside [place]: GILMA BETANCOURT 08/08/2015 10:42:32 AM > Aug 08, 2015 , none Vital Signs Date/Time: Aug 08, 2015 Height 66 in Weight 144 lbs Blood Pressure Diastolic 75 mm Hg Blood Pressure Systolic 120 mm Hg Summary Purpose eClinicalWorks Submission
--- OUTSIDE RECORDS SUMMARY | 2019-02-17 10:32 | XMS REPORT ---
:1975 Author Organization eClinicalWorks Care Team Providers Name Role Phone CHIRAG NAIDU Provider Role Unavailable Encounters Encounter Location Date REFILL CL[place]EM [facility] Mar [place], 2015 [place] [facility], [place] [facility], 2015 [place] [facility], 2015 [place]FILL CYCLOBENZAPRINE [facility] Jul [place], [place] 1 [place] f[place] [facility], [place] EAR ACHE, PAIN [place] H[place] [facility], 2015 [place] [facility] Apr [place], 2015 from e.r./[place] [facility], 2014 [place] [facility] Aug [place], 2015 [place] [facility], 2013 [place] [facility] Aug 14, 2014 [place] [facility], 2014 [place] [facility] [facility], 2013 [place] [facility] 05, 2014 [place] [facility] 05, 2014 REFILL REQ- [place] [facility], 2015 TOXICOLOGY--[place]DERALL [facility] Aug 08, 2015 [place] [facility], 2015 [place] [facility] [facility] 06, 2015 REFILL REQ- [place]AM [facility] Mar 24, 2016 REFILL REQ- TRA[place]OD[place] [facility] Mar 24, 2016 REFILL REQ[place] TRA[place] [facility], 2015 [place] [facility], 2015 REFILL REQ- [place]AM [facility], 2016 REFILL REQ- CYCLOBENZAPRINE [facility] January 09, 2016 Problems Problem Type Condition ICD-9 Code Onset Dates Condition Status Assessment CHRONIC PAIN SYNDROME 338.4 Active Medications Medication Code System Code Instructions Start Date End Date Status Dosage trazodone ISABELTUM 70698 50 mg orally at hs May 16, 2013 Active 3 tab(s) Social History Social History Element Qualifiers Date Reported Caffeine: yes. Mar 24, 2016 Exercise: no. NANCI Dewitt 03/24/2016 10:27:56 AM Mar 24, 2016 > Drug use: no. Mar 24, 2016 Tobacco Use . Status: Current Smoker 1/2 pack a day Mar 24, 2016 VERIFIED BY LENA 03/24/16 Alcohol: no. 4 DRINKS A NANCI BURKETT 03/24/2016 Mar 24, 2016 10:27:47 AM > [facility] [place]: no. NANCI Dewitt 03/24/2016 10:28:10 AM > Mar 24, 2016 Summary Purpose eClinicalWorks Submission
--- OUTSIDE RECORDS SUMMARY | 2019-02-17 10:32 | XMS REPORT ---
:1975 Author Organization eClinicalWorks Care Team Providers Name Role Phone CHIRAG NAIDU Provider Role Unavailable Allergies, Adverse Reactions, Alerts Substance Reaction Event Type N.K.D.A. Info Not Available Non Drug Allergy Encounters Encounter Location Date REFILL CLONAZPEM [facility], [place] Mar 20, 2015 ADD ON TOX PER DR QUIROS [facility] Mar 24, 2016 REFILL TRAZADONE [facility] Jul 16, 2015 REFILL TRAZADONE [facility], 2015 REFILL CLONAZEPAM [facility] 16, 2015 REFILL CYCLOBENZAPRINE [facility] Jul 16, 2015 1 month f/up [facility] 22, 2014 EAR ACHE, PAIN IN HIP [facility] 31, 2015 Unknown [facility] Apr 29[place] 2015 from e.r./chest pain [facility] 22, 2014 Unknown [facility] Aug [place], 2015 weight loss [facility], 2013 [place] [facility] [facility], 2014 [place] [facility] 2014 [place] traz[place] [facility] 29, 2013 ref[place] trazadone [facility] 05, 2014 ref[place] trazadone [facility] 05, 2014 REFILL REQ- CLONAZEPAM [facility] 08, 2015 TOXICOLOGY--ADDERALL [facility] Aug 08, 2015 [place] [facility] 22, 2015 refill [place] [facility], 2015 [place]X [facility] 06, 2015 REFILL REQ- CLONAZEPAM [facility] Mar 24, 2016 REFILL REQ- TRAZODONE [facility] Mar 24, 2016 [place] [facility] [place], 2016 REFILL REQ- TRAZODONE [facility] 09, 2015 Unknown [facility] 30, 2015 REFILL REQ- CLONAZEPAM [facility] 09, 2016 REFILL REQ- CYCLOBENZAPRINE [facility] January 09, 2016 Problems Problem Type Condition ICD-9 Code Onset Dates Condition Status Assessment Other long-term (current) drug Z79.899 Active therapy Assessment Attention deficit disorder F90.0 Active Medications Medication Code System Code Instructions Start Date End Date Status Dosage Cymbalta MULTUM 04812 60 mg orally 2 May 16, Active 1 cap(s) times a day 2012 tramadol MULTUM 42618 50 mg orally January 31, Active 1 tab(s) every 4 hours prn 2014 cyclobenzaprine MULTUM 68282 10 mg orally 3 November 28, Active 1 tab(s) times a day prn 2014 Risperdal MULTUM 1259 1 mg orally bid Active 1 tab trazodone MULTUM 26409 50 mg orally at May 16, Active 3 tab(s) hs 2012 Depakote ER MULTUM 60529 500 mg orally bid Active Unknown clonazepam MULTUM 67781 1 mg orally 2 Mar 20, Active [...] 03/24/16 Alcohol: no. 4 DRINKS A NANCI GRIGSBY 03/24/2016 Mar 24, 2016 10:27:47 AM > [facility] [place] NANCI Dewitt 03/24/2016 10:28:10 AM > Mar 24, 2016 Vital Signs Date/Time: Mar 24, 2016 Height 66 in Weight 154 lbs Blood Pressure Diastolic 80 mm Hg Blood Pressure Systolic 116 mm Hg Summary Purpose eClinicalWorks Submission
--- OUTSIDE RECORDS SUMMARY | 2019-02-17 10:32 | XMS REPORT ---
:1975 Author Organization eClinicalWorks Care Team Providers Name Role Phone CHIRAG NAIDU Provider Role Unavailable Allergies, Adverse Reactions, Alerts Substance Reaction Event Type N.K.D.A. Info Not Available Non Drug Allergy Encounters Encounter Location Date REFILL CLONAZPEM [facility], [place] Mar 20, 2015 REFILL TRAZADONE [facility] Jul 16, 2015 REFILL TRAZADONE [facility] Jul 16[place] 2015 REFILL CLONAZEPAM [facility], 2015 REFILL CYCLOBENZAPRINE [facility] Jul 16, 2015 1 month f/[place] [facility] 22, 2014 EAR ACHE, PAIN IN HIP [facility] 31, 2015 Unknown [facility] Apr [place], 2015 from e.r./chest pain [facility] 22, 2014 Unknown [facility] Aug [place], 2015 weight loss [facility], 2013 Unknown [facility] Aug 14, 2014 refill trazadone [facility] Sep 22, 2014 Unknown [facility] 2014 refill trazad[place] [facility] 29, 2013 refill trazadone [facility] 05, 2014 refill trazadone [facility] 05, 2014 REFILL REQ- CLONAZEPAM [facility] 08, 2015 TOXICOLOGY--ADDERALL [facility] Aug 08, 2015 [place]FILL [facility] 22, 2015 refill req [facility], 2015 TOX [facility] 06, 2015 REFILL REQ- TRAZODONE [facility] 09, 2015 Unknown [facility], 2015 REFILL REQ- CLONAZEPAM [facility] 09[place] 2016 REFILL REQ- CYCLOBENZAPRINE [facility] 09, 2016 Problems Problem Type Condition ICD-9 Code Onset Dates Condition Status Assessment Other half-way (current) drug Z79.899 Active therapy Assessment Attention deficit disorder F90.0 Active Medications Medication Code System Code Instructions Start Date End Date Status Dosage Depakote ER MULTUM 01449 500 mg orally bid Active Unknown tramadol MULTUM 96809 50 mg orally January 31, Active 1 tab(s) every 4 hours prn 2014 clonazepam MULTUM 45289 1 mg orally 2 Mar 20, Active 1 tab(s) times a day 2015 Risperdal MULTUM 1259 1 mg orally bid Active 1 tab Cymbalta MULTUM 54242 60 mg orally 2 May 16, Active 1 cap(s) times a day 2012 trazodone MULTUM 73170 50 mg orally at May 16, Active 3 tab(s) hs 2012 cyclobenzaprine MULTUM 69347 10 mg orally 3 November 28, Active 1 tab(s) times a day prn 2013 Social History Social History Element Qualifiers Date Reported Caffeine: yes. COFFEE, TEA, SODAS DIET OR REG, CHOCOLATE December 06, 2015 GILMA BETANCOURT 12/06/2015 9:46:24 AM > Exercise: no. GILMA BETANCOURT 08/08/2015 10:42:22 AM December 06, 2015 > , none Drug use: no. December 06, 2015 Tobacco Use . Status: Current Smoker 1/2 pack a day December 06, 2015 VERIFIED BY 12/06/2015 Alcohol: no. GILMA BETANCOURT 12/06/2015 9:45:57 AM > December 06, 2015 4 DRINKS A YEAR [facility] [place]: no. noneASIA ANGELA R 12/06/2015 9:46:27 December 06, 2015 AM > Vital Signs Date/Time: December 06, 2015 Height 66 in Weight 154 lbs Blood Pressure Diastolic 72 mm Hg Blood Pressure Systolic 125 mm Hg Summary Purpose eClinicalWorks Submission
--- OUTSIDE RECORDS SUMMARY | 2019-02-17 10:32 | XMS REPORT ---
:1975 Author Organization eClinicalWorks Care Team Providers Name Role Phone CHIRAG NAIDU Provider Role Unavailable Encounters Encounter Location Date REFILL CLONAZPEM [facility], [place] Mar 20, 2015 REFILL TRAZADONE [facility], 2015 REFILL TRAZADONE [facility] Jul 16, 2015 REFILL CLONAZEPAM [facility] Jul [place], 2015 REFILL CYCLOBENZAPRINE [facility] Jul 16, 2015 1 month f/[place] [facility] 22, 2014 EAR ACHE, PAIN IN HIP [facility] 31, 2015 Unknown [facility] Apr 29, 2015 from e.r./chest [place] [facility] 22, 2014 [place] [facility] Aug 19, 2015 [place] [facility], 2013 [place] [facility] Aug 14, 2014 refill trazadone [facility], 2014 [place] [facility] 2014 [place] traz[place]one [facility] 29, 2013 ref[place] trazadone [facility] January 05, 2014 ref[place] trazadone [facility] 05, 2014 REFILL REQ- CLONAZEPAM [facility] 08, 2015 TOXICOLOGY--ADDERALL [facility] Aug 08, 2015 [place]LL [facility] 22, 2015 ref[place] [facility], 2015 [place]X [facility] 06, 2015 REFILL REQ- CLONAZEPAM [facility] Mar 24, 2016 REFILL REQ- TRAZODONE [facility] Mar 24, 2016 REFILL REQ- TRAZODONE [facility] 09, 2015 Unknown [facility] 30, 2015 REFILL REQ- CLONAZEPAM [facility] 09, 2016 REFILL REQ- CYCLOBENZAPRINE [facility] January 09, 2016 Medications Medication Code System Code Instructions Start Date End Date Status Dosage cyclobenzaprine MULTUM 18230 10 mg orally 3 November 28, Active 1 tab(s) times a day prn 2013 clonazepam MULTUM 20576 1 mg orally 2 Mar 20, Active [...] Mar 24, 2016 10:27:47 AM > [facility] [place] NANCI Dewitt 03/24/2016 10:28:10 AM > Mar 24, 2016 Summary Purpose eClinicalWorks Submission
--- OUTSIDE RECORDS SUMMARY | 2019-02-17 10:32 | XMS REPORT ---
:1975 Author Organization eClinicalWorks Care Team Providers Name Role Phone CHIRAG NAIDU Provider Role Unavailable Encounters Encounter Location Date REFILL CLONAZPEM [facility], [place] Mar 20, 2015 REFILL TRAZADONE [facility] Jul 16, 2015 REFILL TRAZAD[place] [facility] Jul 16, 2015 REFILL CLONAZEPAM [facility] Jul 16, 2015 REFILL CYCLOBENZAPRINE [facility] Jul 16, 2015 1 [place] f/[place] [facility] 22, 2014 EAR ACHE, PAIN IN HIP [facility], 2015 [place] [facility] Apr 29, 2015 from e.r./chest [place] [facility] 22, 2014 [place] [facility] Aug 19, 2015 [place] [facility], 2013 [place] [facility] Aug 14, 2014 refill trazadone [facility], 2014 [place] [facility] tra[place] [facility] 29[place] 2013 [place] [facility] 05, [facility] 05, 2014 REFILL REQ- CLONAZEPAM [facility] 08, 2015 TOXICOLOGY--ADDERALL [facility] Aug 08, 2015 [place]LL [facility] 22, 2015 ref[place] req [facility] 15, 2015 REFILL REQ- TRAZODONE [facility] 09, 2015 [place] [facility] 30, 2015 REFILL REQ- CLONAZEPAM [facility] 09, 2016 REFILL REQ- CYCLOBENZAPRINE [facility] 09, 2016 Medications Medication Code System Code Instructions Start Date End Date Status Dosage clonazepam MULTUM 74687 1 mg orally 2 times Mar 20, [...] 06, 2015 4 DRINKS A YEAR [place]ide [place]: no. noneASIA ANGELA R 12/06/2015 9:46:27 December 06, 2015 AM > Summary Purpose eClinicalWorks Submission
--- OUTSIDE RECORDS SUMMARY | 2019-02-17 10:32 | XMS REPORT ---
:1975 Author Organization eClinicalWorks Care Team Providers Name Role Phone CHIRAG NAIDU Provider Role Unavailable Encounters Encounter Location Date REFILL CLONAZPEM [facility] [place] Mar 20, 2015 [place] [facility], 2015 [place] [facility], 2015 [place] [facility] Jul [place], 2015 [place]FILL CYCLOB[place] [facility], 2015 [place] f[place] [facility] [place], 2014 EAR ACHE, PA[place] [facility], 2015 [place] [facility] Apr [place], 2015 from e.r./[place] [facility], 2014 [place] [facility] [place] Aug [place], 2015 [place] [facility], 2013 [place] [facility] [place] Aug 14, 2014 [place] [facility] Sep [place], 2014 [place] [facility] [place] 2014 [place] [facility] [place], 2013 [place] [facility] January 05, 2014 [place] [facility] 05, 2014 REFILL REQ[place] [facility] [place] 08, 2015 TOXICOLOG[place]--[place] [facility] [place] Aug 08, 2015 [place] [facility] [place], 2015 [place] [facility] [place], [place] [facility] 06, 2015 [place]FILL REQ[place] [facility] [place] Mar 24, 2016 [place]FI[place] REQ[place] [facility] [place] Mar [place] 2016 [place] [facility] [place] Apr [place], 2016 [place] REQ[place] [facility] [place], 2015 [place] [facility] [place] December 30, 2015 [place]FILL REQ[place] [facility] 09[place] 2016 REFILL REQ- CYCLOBENZ[place] [facility] 09, 2016 Social History Social History Element Qualifiers Date Reported Caffeine: yes. Mar 24, 2016 Exercise: no. NANCI Dewitt 03/24/2016 10:27:56 AM Mar 24, 2016 > Drug use: no. Mar 24, 2016 Tobacco Use . Status: Current Smoker 1/2 pack a day Mar 24, 2016 VERIFIED BY LENA 03/24/16 Alcohol: no. 4 DRINKS A NANCI GRIGSBY 03/24/2016 Mar 24, 2016 10:27:47 AM > Travel [facility] [place]: no. NANCI Dewitt 03/24/2016 10:28:10 AM > Mar 24, 2016 Summary Purpose eClinicalWorks Submission
--- OUTSIDE RECORDS SUMMARY | 2019-02-17 10:32 | XMS REPORT ---
:1975 Author Organization eClinicalWorks Care Team Providers Name Role Phone CHIRAG NAIDU Provider Role Unavailable Encounters Encounter Location Date REFILL CLONAZPEM [facility] Mar 20, 2015 REFILL TRAZADONE [facility] [place] Jul 16, 2015 REFILL TRAZAD[place] [facility] Jul 16, 2015 REFILL CLONAZE[place] [facility] Jul 16, 2015 REFILL CYCLOBENZAPRINE [facility] Jul 16, 2015 1 month f/[place] [facility] 22, 2014 EAR ACHE, PAIN IN HIP [facility] January 31, 2015 [place] [facility] Apr 29, 2015 from e.r./chest pain [facility] November 22, 2014 [place] [facility] Aug 19, 2015 [place] loss [facility], 2013 [place] [facility] Aug 14, 2014 refill trazadone [facility] Sep 22, 2014 [place] [facility] 2014 [place] tra[place]ad[place] [facility] December 29, 2013 [place] [facility] January 05, [facility] January 05, 2014 REFILL REQ- CLONAZEPAM [facility] 08, 2015 TOXICOLOGY--ADDERALL [facility] Aug 08, 2015 REFILL [facility] 22, 2015 refill req [facility] February 15, 2015 REFILL REQ- TRAZODONE [facility] November 09, 2015 [place] [facility] December 30, 2015 REFILL REQ- CLONAZEPAM [facility] January 09, 2016 REFILL REQ- CYCLOBENZAPRINE [facility], [place] January 09, 2016 Medications Medication Code System Code Instructions Start Date End Date Status Dosage cyclobenzaprine MULTUM 61604 10 mg orally 3 November 28, Active 1 tab(s) times a day prn 2014 Social History Social History Element Qualifiers [...]
--- OUTSIDE RECORDS SUMMARY | 2019-02-17 10:32 | XMS REPORT ---
[...] Start Date End Date Status [id number] 2 Mar 20, Active 1 tab(s) times a day 2014 Results No Known Results Summary Purpose eClinicalWorks Submission
--- OUTSIDE RECORDS SUMMARY | 2019-02-17 10:32 | XMS REPORT ---
:1975 Author Organization eClinicalWorks Care Team Providers Name Role Phone CHIRAG NAIDU Provider Role Unavailable Encounters Encounter Location Date weight loss [facility] November 28, 2013 Unknown [facility] Aug 14, 2014 refill trazadone [facility] Sep 22, 2014 Unknown [facility] 2014 refill trazadone [facility] December 29, 2013 refill trazadone [facility] January 05, 2014 refill trazadone [facility] January 05, 2014 REFILL CLONAZPEM [facility] Mar 20, 2015 REFILL REQ- CLONAZE[place] [facility] 08, 2015 TOXICOLOGY--[place]DERALL [facility] Aug 08, 2015 [place]LL [facility] 22, 2015 refill req [facility] February 15, 2015 [place]FILL TRAZ[place]ONE [facility] Jul 16, 2015 [place]FILL TRAZADONE [facility] Jul 16, 2015 REFILL CLONAZEPAM [facility] Jul 16, 2015 REFILL CYCLOBENZAPRINE [facility] Jul 16, 2015 REFILL REQ- TRAZODONE [facility] November 09, 2015 1 month f/up [facility] 22, 2014 EAR ACHE, PAIN IN HIP [facility] January 31, 2015 Unknown [facility] Apr 29, 2015 from e.r./chest pain [facility] November 22, 2014 Unknown [facility] Aug 19, 2015 Problems Problem Type Condition ICD-9 Code Onset Dates Condition Status Assessment CHRONIC PAIN SYNDROME 338.4 Active Medications Medication Code System Code Instructions Start Date End Date Status Dosage trazodone MULTUM 74378 50 mg orally at hs May 16, 2013 Active 3 tab(s) Social History Social History Element Qualifiers Date Reported Caffeine: yes. COFFEE, TEA, SODAS DIET OR REG, Aug 08, 2015 CHOCOGILMA MISHRA 08/08/2015 10:42:28 AM > Exercise: noGILMA GUARDADO 08/08/2015 10:42:22 AM > Aug 08, 2015 [...]
--- OUTSIDE RECORDS SUMMARY | 2019-02-17 10:32 | XMS REPORT ---
:1975 Author Organization eClinicalWorks Care Team Providers Name Role Phone CHIRAG NAIDU Provider Role Unavailable Encounters Encounter Location Date REFILL CLONAZPEM [facility] Mar 20, 2015 REFILL REQ- TRAZODONE [facility] Jun 30, 2016 RE[address] REQ- [facility] Jun 17, 2016 CLONAZEPAM/CYCLOBENZAPRINE ADD ON TOX PER DR QUIROS [facility] Mar 24, [address] [facility], [address] [facility] [address] [facility], [address] [facility] Jul 16, 2015 1 month f/up [facility] December 22, 2014 EAR ACHE, PAIN IN HIP [facility], [address] [facility] Apr 29, 2015 from e.r./chest pain [facility] November 22[place] [address] [facility] Aug [place], [address] [facility], [address] [facility] Aug [place], [address] [facility] [address] [facility] [address] [facility], [address] [facility] 05, [address] [facility] January 05, 2014 REFILL REQ- CLONAZEPAM [facility] November 08, 2015 TOXICOLOGY--ADDERALL [facility] Aug 08, [address] [facility] 22, [address] [facility], [address] [facility] December 06, 2015 REFILL REQ- CLONAZE[place]AM [facility] Mar 24, 2016 REFILL REQ- TRAZOD[place] [facility] Mar 24, [address] [facility] Apr 21, 2016 REFILL REQ- TRAZODONE [facility] November 09, [address] [facility] December 30, 2015 REFILL REQ- CLONAZE[place] [facility] January 09, 2016 REFILL REQ- CYCLOBENZAPRINE [facility] January 09, 2016 Problems Problem Type Condition ICD-9 Code Onset Dates Condition Status Assessment CHRONIC PAIN SYNDROME 338.4 Active Problem Attention deficit disorder F90.0 Active Medications Medication Code System Code Instructions Start Date End Date Status Dosage trazodone MULTUM 96345 50 mg orally at hs May 16, [...] Mar 24, 2016 10:27:47 AM > Travel [facility] [place]: no. NANCI Dewitt 03/24/2016 10:28:10 AM > Mar 24, 2016 Summary Purpose eClinicalWorks Submission
--- OUTSIDE RECORDS SUMMARY | 2019-02-17 10:32 | XMS REPORT ---
:1975 Author Organization eClinicalWorks Care Team Providers Name Role Phone CHIRAG NAIDU Provider Role Unavailable Encounters Encounter Location Date weight loss [facility] 28, 2013 Unknown [facility] Aug 14, 2014 refill trazadone [facility] Sep 22, 2014 Unknown [facility] 2014 [place] trazadone [facility] December 29, 2013 refill trazadone [facility] January 05, 2014 refill trazadone [facility] January 05, 2014 REFILL CLONAZPEM [facility] Mar 20, 2015 REFILL REQ- CLONAZEPAM [facility] 08, 2015 TOXICOLOGY--ADDERALL [facility] Aug 08, 2015 REFILL [facility] January 22, 2015 refill req [facility] February 15, 2015 REFILL TRAZADONE [facility] Jul 16, 2015 REFILL TRAZADONE [facility] Jul 16, 2015 REFILL CLONAZEPAM [facility] Jul 16, 2015 REFILL CYCLOBENZAPRINE [facility] Jul 16, 2015 REFILL REQ- TRAZODONE [facility] November 09, 2015 1 month f/up [facility] December 22, 2014 Unknown [facility] December 30, 2015 EAR ACHE, PAIN IN HIP [facility] January 31, 2015 Unknown [facility] Apr 29, 2015 from e.r./chest pain [facility] 22, 2014 Unknown [facility] Aug 19, 2015 Social History Social History Element Qualifiers Date [...]
--- OUTSIDE RECORDS SUMMARY | 2019-02-17 10:33 | XMS REPORT ---
:1975 Author Organization eClinicalWorks Care Team Providers Name Role Phone CHIRAG NAIDU Provider Role Unavailable Allergies, Adverse Reactions, Alerts Substance Reaction Event Type N.K.D.A. Info Not Available Non Drug Allergy Problems Problem Type Condition Code Onset Dates Condition Status Assessment Other assisted (current) drug Z79.899 Active therapy Assessment Attention deficit disorder F90.0 Active Problem Attention deficit disorder F90.0 Active Medications Medication Code System Code Instructions Start End Date Status Dosage Date trazodone NDC 84303 50 mg orally at May 16, Active 3 tab(s) hs 2012 tramadol NDC 86934 50 mg orally January 31, Active 1 tab(s) every 4 hours prn 2014 clonazepam NDC 27501 1 mg orally 2 Mar 20, Active 1 tab(s) times a day 2014 Cymbalta NDC 89350 60 mg orally 2 May 16, Active 1 cap(s) times a day 2012 Risperdal NDC 1259 1 mg orally bid Active 1 tab Depakote ER NDC 77543 500 mg orally bid Active not defined cyclobenzaprine NDC 99299 10 mg orally 3 November 28, Active 1 tab(s) times a day prn 2013 Vital Signs Date/Time: Aug 22, 2016 BMI 22.76 Index Height 66 in Weight 141 lbs Pulse 97 /min Blood Pressure Diastolic 80 mm Hg Blood Pressure Systolic 110 mm Hg Results No Known Results Summary Purpose eClinicalWorks Submission
--- OUTSIDE RECORDS SUMMARY | 2019-02-17 10:33 | XMS REPORT ---
:1975 Author Organization eClinicalWorks Care Team Providers Name Role Phone CHIRAG NAIDU Provider Role Unavailable Encounters Encounter Location Date REFILL CL[place] [facility], 2015 REFILL REQ- TRAZODONE [facility] Jun [place], 2016 [place]FILL [place]Q- [facility] Jun 17, 2016 CLONAZEPAM/CYCLOBENZAPRINE ADD ON TOX PER DR QUIROS [facility] Mar 24, 2016 REFILL REQ- CLONAZEPAM/CYCLOBENZAPRINE [facility] Sep [place]LL TRAZADONE [facility] Jul 16, 2015 REFILL REQ- CLONAZEPAM/CYCLOBENZAPRINE [facility] Sep [place] TRA[place]AD[place] [facility] Jul 16, 2015 medication [facility] [place] Jul 17, 2016 REFILL CLONAZEPAM [facility] [place] Jul 16, 2015 Unknown [facility] [place] Sep 22, 2016 REFILL CYCLOBENZAPRINE [facility] Jul 16, 2015 1 month f/[place] [facility] [place] December 22, 2014 EAR ACHE, PAIN IN HIP [facility] [place] January 31[place] 2015 [place] [facility] [place] Apr 29, 2015 from e.r./chest pain [facility] [place] November 22, 2014 Unknown [facility] [place] Aug 19, 2015 weight loss [facility] [place] November 28, 2013 [place] [facility] [place] Aug 14, 2014 refill trazadone [facility] [place] Sep 22, 2014 [place] [facility] [place] 2014 ref[place] trazadone [facility] December 29, 2013 ref[place] trazadone [facility] [place] January 05, 2014 ref[place] trazadone [facility] January 05, 2014 REFILL REQ- CLONAZEPAM [facility] November 08, 2015 TOXICOLOGY--ADDERALL [facility] [place] Aug 08, 2015 [place]LL [facility] [place] January 22, 2015 [place] [facility] [place] February 15, 2015 [place]X [facility] [place] December 06, 2015 REFILL REQ- CLONAZEPAM [facility] Mar 24, 2016 REFILL REQ- TRAZODONE [facility] Mar 24, 2016 [place] [facility] Apr 21, 2016 REFILL REQ- TRAZODONE [facility] November 09, 2015 [place] [facility] December 30, 2015 REFILL REQ- CLONAZEPAM [facility] January 09, 2016 REFILL REQ- CYCLOBENZAPRINE [facility] January 09, 2016 Problems Problem Type Condition ICD-9 Code Onset Dates Condition Status Problem Attention deficit disorder F90.0 Active Medications Medication Code System Code Instructions Start Date End Date Status Dosage clonazepam MULTUM 88808 1 mg orally 2 Mar 20, Active 1 tab(s) times a day 2014 cyclobenzaprine MULTUM 00127 10 mg orally November 28, Active 1 tab(s) times a day prn 2014 Social History Social History Element Qualifiers Date Reported Pets: . 3DOGS, 1 CAT Aug 22, 2016 Marital Status: . Aug 22, 2016 Caffeine: yes. COFFEE 1-2 CUPS/DAY, SODA 4-5CANS/DAY Aug 22, 2016 Exercise: no. none Aug 22, 2016 Drug use: no. Aug 22, 2016 Tobacco Use . Status: Current Smoker 1/2 pack a day Aug 22, 2016 VERIFIED BY LENA 08/22/16 Alcohol: no. 4 DRINKS A YEAR Aug 22, 2016 [place]: no. none Aug 22, 2016 Occupation: . disabled Aug 22, 2016 Summary Purpose eClinicalWorks Submission
--- OUTSIDE RECORDS SUMMARY | 2019-02-17 10:33 | XMS REPORT ---
:1975 Author Organization eClinicalWorks Care Team Providers Name Role Phone CHIRAG NAIDU Provider Role Unavailable Encounters Encounter Location Date REFILL CL[place]AZPEM [facility], 2015 REFILL REQ- [place]ZOD[place] [facility] Jun [place], 2016 [place]LL REQ- [facility] Jun 17, 2016 CLONAZEPAM/CYCLOBENZAPRINE ADD ON TOX PER DR QUIROS [facility] Mar 24, 2016 REFILL TRAZADONE [facility] Jul 16, 2015 REFILL TRAZADONE [facility] Jul 16, 2015 medication [facility] [place] Jul 17, 2016 REFILL CLONAZEPAM [facility] [place] Jul 16, 2015 REFILL CYCLOBENZAPRINE [facility] Jul 16, 2015 1 month f/up [facility] [place] December 22, 2014 EAR ACHE, PAIN IN HIP [facility] January 31, 2015 Unknown [facility] [place] Apr 29, 2015 from e.r./chest pain [facility] [place] November 22, 2014 Unknown [facility] [place] Aug 19, 2015 weight loss [facility] [place] 28, 2013 [place] [facility] [place] Aug 14, 2014 refill trazadone [facility] Sep 22, 2014 [place] [facility] [place] 2014 ref[place] trazadone [facility] December 29, 2013 ref[place] trazadone [facility] January 05, 2014 refill trazadone [facility] January 05, 2014 REFILL REQ- CLONAZEPAM [facility] 08, 2015 TOXICOLOGY--ADDERALL [facility] [place] Aug 08, 2015 [place]FILL [facility] 22, 2015 [place] [facility] February 15, 2015 TOX [facility] [place] December 06, 2015 REFILL REQ- CLONAZEPAM [facility] Mar 24, 2016 REFILL REQ- TRAZODONE [facility] Mar 24, 2016 Unknown [facility] [place] Apr 21, 2016 REFILL REQ- TRAZODONE [facility] November 09, 2015 Unknown [facility] December 30, 2015 REFILL REQ- CLONAZEPAM [facility] [place] January 09, 2016 REFILL REQ- CYCLOBENZAPRINE [facility] [place] January 09, 2016 Problems Problem Type Condition ICD-9 Code Onset Dates Condition Status Problem Attention deficit disorder F90.0 Active Social History [...] Mar 24, 2016 10:27:47 AM > [place]: no. NANCI Dewitt 03/24/2016 10:28:10 AM > Mar 24, 2016 Summary Purpose eClinicalWorks Submission
--- OUTSIDE RECORDS SUMMARY | 2019-02-17 10:33 | XMS REPORT ---
[...] [facility] [place] Jul [place], 2015 [place] [facility] [place] Sep 22, 2016 REFILL CYCLOBENZAPRINE [facility] [place] Jul [...] 2015 REFILL REQ- CLONAZEPAM [facility] [place] Mar 24, 2016 REFILL REQ- TRAZODONE [facility] Mar 24, 2016 Unknown [facility] Apr 21, 2016 REFILL REQ- TRAZODONE [facility] November 09, 2015 Unknown [facility] December 30, 2015 REFILL REQ- CLONAZEPAM [facility] January 09, 2016 REFILL REQ- CYCLOBENZAPRINE [facility] January 09, 2016 Problems Problem Type Condition [...]
--- OUTSIDE RECORDS SUMMARY | 2019-02-17 10:33 | XMS REPORT ---
[...] [place] Mar 24, 2016 REFILL REQ- CLONAZEPAM/CYCLOBENZAPRINE [facility] [place] Sep REFILL TRAZADONE [facility] [place] Jul 16, [address] [facility] Jul [place], [address] [facility] Jul 17[place] [address] [facility] [place] Jul 16, [address] [facility] [place] Sep 22, [address] [facility] Jul [...] February 15, [address] [facility] December 06, 2015 REFILL REQ- CLONAZEP[place] [facility] Mar 24, 2016 REFILL REQ- TRAZOD[place] [facility] Mar 24, [address] [facility] Apr 21, 2016 REFILL REQ- TRAZOD[place] [facility] November 09, [address] [facility] December 30, 2015 REFILL REQ- CLONAZEPAM [facility] January 09, 2016 REFILL REQ- CYCLOBENZAPRINE [facility] January 09, 2016 Problems Problem Type Condition ICD-9 Code Onset Dates Condition Status Problem Attention deficit disorder F90.0 Active Medications Medication Code System Code Instructions Start Date End Date Status Dosage clonazepam MULTUM 10762 1 mg orally 2 Mar 20, Active 1 tab(s) times a day 2014 cyclobenzaprine MULTUM 44955 10 mg orally 3 November 28, Active [...]
[2019-02-17] MEDS ORDERED: DIAZEPAM 5 MG TABLET ONE (11:15)
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
[2019-02-17 11:55] VITALS: BP 140/92; TEMP 97.7; O2SAT 100
== END 2019-02-17 11:40 | disposition home or self-care (01) ==
LOC: ER 10:24
DX: S13.4XXA Sprain of ligaments of cervical spine, initial encounter (principal); S29.012A Strain of muscle and tendon of back wall of thorax, initial encounter; V49.40XA Driver injured in collision with unspecified motor vehicles in traffic accident, initial encounter
CPT/HCPCS: 72125; 99283

== ENCOUNTER 2019-06-13 17:09 | Emergency (ER) | payer OTHER ==
[2019-06-13] MEDS ORDERED: dexAMETHasone 10 MG/ML VIAL ONE (17:47)
[2019-06-13] MEDS ORDERED: NA CHLORIDE 0.9% 1,000 ML ONE (17:48)
[2019-06-13] MEDS ORDERED: FAMOTIDINE 20 MG/2 ML VIAL IV ONE (17:48)
[2019-06-13] MEDS ORDERED: DIPHENHYDRAMINE 50 MG/ML VIAL ONE (17:48)
--- NOTE | 2019-06-13 19:08 | ER ---
Nurse's Notes [facility] Name: Lisseth Powell Age: 43 yrs Sex: Female : 1975 Arrival Date: 06/13/2019 Time: 17:11 Bed 26 Private MD: Diagnosis: Acute allergic reaction to medication Presentation: 06/13 17:14 Presenting complaint: Patient states: She started taking Trintellix today and then she aj1 developed a rash over her entire body, now she feels a burning sensation in her throat. Breath sounds CTA. Transition of care: patient was not received from another setting of care. Onset: The symptoms/episode began/occurred acutely. Anaphylaxis evaluation, no signs or symptoms of anaphylaxis were noted. Onset of symptoms was June 13, 2019. Risk Assessment: Do you want to hurt yourself or someone else? Patient reports no desire to harm self or others. Initial Sepsis Screen: Does the patient meet any 2 criteria? No. Patient's initial sepsis screen is negative. Does the patient have a suspected source of infection? No. Patient's initial sepsis screen is negative. Care prior to arrival: None. 17:14 Method Of Arrival: Ambulatory [facility] 17:14 Acuity: JULIET 3 aj1 Triage Assessment: 17:17 General: Appears in no apparent distress. uncomfortable, Behavior is calm, cooperative, aj1 appropriate for age. Pain: Pain currently is 3 out of 10 on a pain scale. Neuro: Level of Consciousness is awake, alert, obeys commands. Cardiovascular: Patient's skin is warm and dry. Respiratory: Airway is patent Respiratory effort is even, unlabored, Respiratory pattern is regular, symmetrical. Respiratory: Breath sounds are clear bilaterally. 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 - Social history:: Smoking status: Patient uses tobacco products, denies chronic smoking, but will smoke occasionally. - Ebola Screening: : Patient denies travel to an Ebola-affected area in the 21 days before illness onset. - Family history:: not pertinent. - Hospitalizations: : No recent hospitalization is reported. Screenin:50 Abuse screen: Denies threats or abuse. Nutritional screening: No deficits noted. tr5 Tuberculosis screening: No symptoms or risk factors identified. Fall Risk None identified. Assessment: 17:50 General: Appears uncomfortable, Behavior is calm, cooperative, appropriate for age. tr5 Pain: Denies pain. Neuro: Level of Consciousness is awake, alert, obeys commands, Oriented to person, place, Sample Tailor are equal bilaterally Moves all extremities. Cardiovascular: Heart tones present Capillary refill < 3 seconds Pulses are all present. Respiratory: Reports shortness of breath Airway is patent Respiratory effort is even, unlabored, Respiratory pattern is regular, symmetrical. GI: No signs and/or symptoms were reported involving the gastrointestinal system. GI:. : No signs and/or symptoms were reported regarding the genitourinary system. EENT: Reports Swollen throat and difficulty swallowing. . Derm: Reports itching. Musculoskeletal: No signs and/or symptoms reported regarding the musculoskeletal system. Vital Signs: 17:17 BP 138 / 94; Pulse 106; Resp 20; Temp 98.2; Pulse Ox 97% on R/A; Weight 65.77 kg (R); aj1 Height 5 ft. 8 in. (172.72 cm) (R); Pain 3/10; 17:17 Body Mass Index 22.05 (65.77 kg, 172.72 cm) [facility] ED Course: 17:11 Patient arrived in ED. mr 17:16 Triage completed. [facility] 17:17 Arm band placed on Patient placed in an exam room. [facility] 17:23 Uriel Armas MD is Attending Physician. ga 17:35 Raffi Bey, ANNA is Primary Nurse. tr5 17:50 Bed in low position. Call light in reach. Side rails up X 1. tr5 18:29 Inserted saline lock: 24 gauge in right wrist, using aseptic technique. 5 19:21 No provider procedures requiring assistance completed. IV discontinued, intact, tr5 bleeding controlled, No redness/swelling at site. Pressure dressing applied. Administered Medications: 17:59 Drug: Pepcid 20 mg Route: IVP; Site: right wrist; tr5 18:00 Drug: Decadron - Dexamethasone 10 mg Route: IVP; Site: right wrist; tr5 18:00 Drug: Benadryl 12.5 mg Route: IVP; Site: right wrist; tr5 18:00 Drug: NS 0.9% 1000 ml Route: IV; Rate: 1 bolus; Site: right wrist; tr5 Outcome: 19:07 Discharge ordered by . simba 19:20 Discharged to home ambulatory, with family. tr5 19:20 Condition: good 19:20 Discharge instructions given to patient, family, Instructed on discharge instructions, follow up and referral plans. medication usage, Demonstrated understanding of instructions, follow-up care, medications, Prescriptions given X 2. 19:21 Patient left the ED. tr5 Signatures: Hazel Nolen RN RN aj1 Solange Lemon Maria 5 Uriel Armas MD MD wa Rodriguez, Tommie, RN RN tr5
--- NOTE | 2019-06-13 19:09 | EDPHYS ---
Physician Documentation [facility] Name: Lisseth Powell Age: 43 yrs Sex: Female : 1975 Arrival Date: 06/13/2019 Time: 17:11 Bed 26 Private MD: ED Physician Uriel Armas HPI: 06/13 18:07 This 43 yrs old Female presents to ER via Ambulatory with complaints of wa Allergic Reaction, Difficulty Swallowing. 18:07 The patient presents with difficulty swallowing, itching, rash, that is diffuse. Onset: wa The symptoms/episode began/occurred just prior to arrival. Associated signs and symptoms: Pertinent positives: hives, rash, Pertinent negatives: shortness of breath, swelling. Possible causes: antidepressants. At home the patient or guardian has treated the symptoms with Benadryl. Severity of symptoms: At their worst the symptoms were moderate in the emergency department the symptoms are unchanged. The patient has not experienced similar symptoms in the past. The patient has not recently seen a physician. states took an SSRS and then 30 minutes later began itching. took benadryl. now states feels like she has difficulty to swallow. 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 - Social history:: Smoking status: Patient uses tobacco products, denies chronic smoking, but will smoke occasionally. - Ebola Screening: : Patient denies travel to an Ebola-affected area in the 21 days before illness onset. - Family history:: not pertinent. - Hospitalizations: : No recent hospitalization is reported. ROS: 18:11 Constitutional: Negative for fever, chills, and weight loss, Eyes: Negative for injury, wa pain, redness, and discharge, Neck: Negative for injury, pain, and swelling, Cardiovascular: Negative for chest pain, palpitations, and edema, Respiratory: Negative for shortness of breath, cough, wheezing, and pleuritic chest pain, Abdomen/GI: Negative for abdominal pain, nausea, vomiting, diarrhea, and constipation, Back: Negative for injury and pain, : Negative for injury, bleeding, discharge, and swelling, MS/Extremity: Negative for injury and deformity, Skin: Negative for injury, rash, and discoloration, Neuro: Negative for headache, weakness, numbness, tingling, and seizure, Psych: Negative for depression, anxiety, suicide ideation, homicidal ideation, and hallucinations. 18:11 Skin: Positive for rash, diffusely. 18:11 All other systems are negative. Exam: 18:12 Constitutional: This is a well developed, well nourished patient who is awake, alert, wa and in no acute distress. Head/Face: Normocephalic, atraumatic. Eyes: Pupils equal round and reactive to light, extra-ocular motions intact. Lids and lashes normal. Conjunctiva and sclera are non-icteric and not injected. Cornea within normal limits. Periorbital areas with no swelling, redness, or edema. ENT: Nares patent. No nasal discharge, no septal abnormalities noted. Tympanic membranes are normal and external auditory canals are clear. Oropharynx with no redness, swelling, or masses, exudates, or evidence of obstruction, uvula midline. Mucous membranes moist. Neck: Trachea midline, no thyromegaly or masses palpated, and no cervical lymphadenopathy. Supple, full range of motion without nuchal rigidity, or vertebral point tenderness. No Meningismus. Cardiovascular: Regular rate and rhythm with a normal S1 and S2. No gallops, murmurs, or rubs. Normal PMI, no JVD. No pulse deficits. Respiratory: Lungs have equal breath sounds bilaterally, clear to auscultation and percussion. No rales, rhonchi or wheezes noted. No increased work of breathing, no retractions or nasal flaring. Abdomen/GI: Soft, non-tender, with normal bowel sounds. No distension or tympany. No guarding or rebound. No evidence of tenderness throughout. Back: No spinal tenderness. No costovertebral tenderness. Full range of motion. MS/ Extremity: Pulses equal, no cyanosis. Neurovascular intact. Full, normal range of motion. Neuro: Awake and alert, GCS 15, oriented to person, place, time, and situation. Cranial nerves II-XII grossly intact. Motor strength 5/5 in all extremities. Sensory grossly intact. Cerebellar exam normal. Normal gait. Psych: Awake, alert, with orientation to person, place and time. Behavior, mood, and affect are within normal limits. 18:12 Skin: rash a mild rash is noted, rash can be described as erythematous, linear, nonspecific, papular. Vital Signs: 17:17 BP 138 / 94; Pulse 106; Resp 20; Temp 98.2; Pulse Ox 97% on R/A; Weight 65.77 kg (R); aj1 Height 5 ft. 8 in. (172.72 cm) (R); Pain 3/10; 17:17 Body Mass Index 22.05 (65.77 kg, 172.72 cm) aj1 MDM: 17:24 Patient medically screened. wa 18:12 Differential diagnosis: anaphylaxis, angioedema, urticaria. il 19:03 Data reviewed: vital signs, nurses notes. Response to treatment: the patient's symptoms wa have markedly improved after treatment. ED course: improved. no swelling. . 04 17:40 Order name: IV Saline Lock; Complete Time: 17:45 il Administered Medications: 17:59 Drug: Pepcid 20 mg Route: IVP; Site: right wrist; tr5 18:00 Drug: Decadron - Dexamethasone 10 mg Route: IVP; Site: right wrist; tr5 18:00 Drug: Benadryl 12.5 mg Route: IVP; Site: right wrist; tr5 18:00 Drug: NS 0.9% 1000 ml Route: IV; Rate: 1 bolus; Site: right wrist; tr5 Disposition: 06/13/19 19:07 Discharged to Home. Impression: Acute allergic reaction to medication. - Condition is Stable. - Discharge Instructions: Allergies, [id number]. - Prescriptions for Prednisone 20 mg Oral Tablet - take 2 tablets by ORAL route once daily for 4 days; 8 tablet. Pepcid 20 mg Oral Tablet - take 1 tablet by ORAL route every 12 hours for 5 days; 10 tablet. - Medication Reconciliation Form, Thank You Letter, Antibiotic Education, Prescription Opioid Use form. - Follow up: Private Physician; When: 1 - 2 days; Reason: Recheck today's complaints. - Problem is new. - Symptoms have improved. - Notes: jorge luis medicaation as prescribed. take benadryl or zyrtec as needed if itching Signatures: Hazel Nolen RN RN aj1 Uriel Armas MD MD wa Rodriguez, Tommie, RN RN tr5 Corrections: (The following items were deleted from the chart) 19:21 19:07 06/13/2019 19:07 Discharged to Home. Impression: Acute allergic reaction to tr5 medication. Condition is Stable. Forms are Medication Reconciliation Form, Thank You Letter, Antibiotic Education, Prescription Opioid Use. Follow up: Private Physician; When: 1 - 2 days; Reason: Recheck today's complaints. Problem is new. Symptoms have improved. simba
[2019-06-13 20:27] VITALS: BP 138/94; TEMP 98.2; O2SAT 97
== END 2019-06-13 19:21 | disposition home or self-care (01) ==
LOC: ER 17:09
DX: R21 Rash and other nonspecific skin eruption (principal); Z88.9 Allergy status to unspecified drugs, medicaments and biological substances; Z72.0 Tobacco use
CPT/HCPCS: 96375; 96374; 99283; J1200; J1100; J7030

== ENCOUNTER 2020-02-06 17:59 | Emergency (ER) | payer OTHER ==
--- OUTSIDE RECORDS SUMMARY | 2020-02-06 18:06 | XMS REPORT ---
:1975 Author Organization [employer] Care Team Providers Name Role Phone CHIRAG NAIDU Provider Role Unavailable Allergies No Known Allergies Problems Problem Type Condition Code Onset Dates Condition Statu s Problem Thyromegaly E01.0 Active Problem Anxiety F41.9 Active Problem Thyroid nodule E04.1 Active Problem Attention deficit disorder F90.0 A ctive Problem Depression, unspecified depression F32.9 Active type Problem Chronic pain disorder G89.4 Active Medications Medication Code System Code Instructions Start Date End Date Status Dosage [facility]ep[facility] [id number] 1 mg Active TAKE 1 TABLET BY MOUTH TWICE A DAY Results No Known Results Summary Purpose [employer] Submission
--- OUTSIDE RECORDS SUMMARY | 2020-02-06 18:06 | XMS REPORT | Continuity of Care Document ---
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 Recommend thyroid ultrasound. Recommendations for f/u of I ncidental Thyroid Nodules (ITN) found on CT, MRI, NM and Extrathyroidal US based on the ACR white paper and Sharma 3-tiered system for managing ITNs: 1. Further evaluation by thyroid US recommended for: \X2981\ Solitary ITN with h igh risk imaging features (locally invasive nodule or suspicious lymph nodes) 0 Solitary ITN of any size in pediatric patient s < 18 years of age 1 Solitary ITN > 1 cm in ax ial plane in patients between 18 and 35 years of age 2 Solitary ITN > 1.5 cm in axial plane in patie nts > 35 years of age 3 Heterogeneous enlarged thyroid gland 4 ITN avid on FDG-PET or ot her nuclear medicine (MIBI and octreotide) scans. FNA biopsy is also recommended for PET avid nodules. 2. No f/u is necessary for ITNs not meetin g the above criteria. 3. For multiple thyroid nod ules, the above recommendations for solitary ITN are [...] wo contrast Clinical History: memory loss. 09/18/2014 [employer] MRI Sex: F. : 1975. Technique: Sagittal, axial a nd coronal sequences through the brain with T1, T2, FLAIR and diffusion weighting on the high field magnet. The diffusion weighted exam shows no evidence for restricted diffusion or acute infarct. There is no acute abnormal intracranial signal, mass, mass effect or extra-axial fluid collection. Ventricles, mendez barachnoid spaces and sulci are normal. There is no evidence for hydrocephalus. There is no midline shift. The posterior fossa is intact. There is normally maintained signal void in the major vasculatu re. The sella and suprasella r cistern are normal. Paranasal sinuses are aerated. Orbits are symmetric. IMPRESSION: 1. Negative MRI of the Brain. Chest 2 views EXAMINATION: Chest radiograp hic examination, frontal and lateral projections dated 08/17/2013 08/17/2013 [employer] COMPARISON: None INDICATION: Pneumonia FINDINGS: There is no acute infiltrate or focal consolidation. No pneumothorax or pleural effusion. The cardiomediastinal silhouette is within normal limits. The aorta is unremarkable. No acute bony abnormality noted. IMPRESSION: No acute cardiopulmonary abnormality. Brain wo contrast CT EXAMINATION: head CT without contrast. 08/2012 [employer] COMPARISON: None. REASON FOR EXAMINATION: head trauma, status post fall , headache. TECHNIQUE: Axial computed to mographic images were obtained through the brain without contrast. Coronal and sagittal reformatted images were subsequently obtained for further diagnostic information. FINDINGS: The sulci, lateral ventricles, and basilar cisterns are normal in appearance. There is no evidence of mass-effect or midline shift. No focal encephalomalacia. No intracerebral or extra-axial hematoma is identified. No a bnormal intracranial calcifications. The the patient is status post right frontal parietal craniotomy. Severe mid nasal septal deviation to the right is present. Moderate jessica ateral ethmoid sinus mucosal thickening is prese nt. IMPRESSION: 1. NO ACUTE INTRACRANIAL ABNORMALITIES. Spine cervical wo EXAMINATION: cervical spine CT without contr ast. 05/10/[address] [facility] [address] REASON FOR EXAMINATION: neck trauma, neck pain. COMPARISON: None. TECHNIQUE: Axial computed to mographic images were obtained through the cervical spine without contrast. Sagittal and coronal reformatted images were subsequently obtained. FINDINGS: There is no fractu re or subluxation. There is normal vertebral alignment. The patient is status post bilateral interpedicular screw fixation with posterior spinal stabilization ramon placement a t the C4-C6 levels. The hard mcadams is intact. Mild paraseptal emphysematous changes are present within the lung apices. IMPRESSION: No fracture or subluxation of the cervical spine . Facial bone wo EXAMINATION: Facial bone CT 05/10/[address] [facility] [address] REASON FOR EXAMINATION: Facial trauma, pain. COMPARISON: None. TECHNIQUE: Axial computed to mographic images were obtained through the facial bones [...] of The Sacrum and Coccyx With and Wi thout IV Contrast 04/21/2013 [facility] contrast MRI Bone & Joint History: Mass pain Technique: The study was pe rformed on a high-field magnet without IV contrast. Findings: There is a well-defined lyndsey gn-appearing cystic lesion in the cutaneous fat adjacent to the fifth coccygeal segment to the left of midline, adjacent to the antonia cleft of the buttocks. Low signal intens ity peripheral margin is pre sent. Lesion appears totally cystic in with minimal internal debris without solid components. The lesion overall measures 2.3 x 1.4 x 1.6 cm in its greatest cc AP and transve rse dimensions. The adjacent coccyx appears unremarkable without bone marrow edema or erosions. There is no intrapelvic component. This lesion most like represents a pilonidal cyst. No presacral masses identifi ed. The sacral foramina appear patent. No bone marrow edema in the sacrum. The sacral iliac joints appear intact without erosions or joint effusion. The intrapelvic structures appear grossly unrema rkable. Impression: Benign-appearing cystic lesi on just to the left of the cleft, confined to the subcutaneous fat described above, adjacent to the fifth coccygeal segment. Findings most like represent a pilonidal cy st. No bony erosions. No intrapelvic or solid co mponent. . Spine lumbar wo MRI of the Lumbar Spine 02/28/2013 [facility] contrast MRI Joint History: Bilateral radiculopathy. Comparison Study: none Technique: The study was pe rformed on a high field magnet without contrast. Findings: L1-2: There is a superior en dplate deformity of L1 with loss approximately 20% of vertebral height. Anterior spondylosis is present. No bone marrow edema. Findings most like represent a chronic nathan karen deformity. There is dis c desiccation at T12-L1 without focal protrusion. No retropulsion. The L1-L2 disc is unremarkable without disc bulge protrusion. No central or foraminal stenosis. L2-3, L3-L4, L4-L5: The disc s are adequately hydrated without disc bulge contusion. No central or foraminal stenosis. Mild facet degeneration at L4-L5. L5-S1: Disc desiccation with out significant loss disc height. There is a small 3 mm broad-based posterior central protrusion mildly effacing the intrathecal sac without mass effect on S1 root sleeves. M ild facet degeneration. No central or foraminal stenosis. The conus terminates normally at T12-L1. Impression: Disc degeneration at L5-S1 w here there is a small 3 mm broad-based posterior central protrusion with annular tear mildly effacing the intrathecal sac without mass effect on S1 root sleeves. Facet degeneration at L4-L5 and L5-S1. Old superior endplate deform ity of L1 with loss of approximately 20% of vertebral height. No retropulsion or focal protrusion at T12-L1 or L1-L2.. Dictation Code: 100 Spine cervical wo MRI of the Cervical Spine Without IV Contrast 02/28/2013 [facility] contrast MRI Joint History: Pain. prior fusion Technique: The study was pe rformed on a highfield magnet without intravenous contrast. Findings: C2-C3: Disc is hydrated with out posterior disc bulge or protrusion. No central or foraminal narrowing. C3-C4: Disc height is mainta ined. Minimal bilateral uncovertebral spurring and mild bilateral facet degeneration. No central or foraminal stenosis. C4-C5: Disc height is mainta ined without focal protrusion. Posterior lateral fusion with surgical hardware in place. No central or foraminal stenosis. C5-C6: Disc desiccation with mild loss of disc height. Subtle retrolisthesis of C5 on C6. Mild posterior spondylosis without focal protrusion. Posterior lateral fusion with surgical hardware in place. No central or foraminal stenosis. C6-C7: Disc height is mainta ined. No posterior disc bulge protrusion. No central or foraminal stenosis. Minimal posterior central spondylosis. C7-T1: Disc desiccation. Mil d compression deformity of T1 without bone marrow edema. No posterior disc bulge contusion. Mild bilateral facet degeneration. No central or foraminal stenosis. The cervical cord is normal in signal intensity and caliber. Craniocervical junction is normal. Impression: Posterior lateral fusion wit h surgical hardware in place at C4-C5, C5-C6. Mild disc space narrowing at C5-C6 with a subtle retrolisthesis of C5 on C6. Posterior central spondylosis without focal protrusion. No central or foraminal stenosis. A mild superior endplate def ormity of T1 without bone marrow edema most [...] Sign Value Date Comments Source Height 66 08/25[facility] Weight 155 08/25/2019 [facility] Diastolic (mm Hg) 80 08/25/2019 [facility] Systolic (mm Hg) 126 08/25/2019 [facility] Temperature Oral (F) 97.7 F 08/25/2019 [facility] Height 66 01/28/2019 [facility] Weight 138 01/28/2019 [facility] Diastolic (mm Hg) 80 01/28/2019 [facility] Systolic (mm Hg) 116 01/28/2019 [facility] Height 66 09/20/2018 [facility] Weight 158 09/20/2018 [facility] Diastolic (mm Hg) 72 09/20/2018 [facility] Systolic (mm Hg) 112 09/20/2018 [facility] Height 66 05/17/2018 [facility] Weight 153 05/17/2018 [facility] Diastolic (mm Hg) 72 05/17/2018 [facility] Systolic (mm Hg) 110 05/17/2018 [facility] Height 66 09/17/2017 [facility] Weight 155 09/17/2017 [facility] Diastolic (mm Hg) 80 09/17/2017 [facility] Systolic (mm Hg) 112 09/17/2017 [facility] Height 66 06/01/2017 [facility] Weight 156 06/01/2017 [facility] Diastolic (mm Hg) 70 06/01/2017 [facility] Systolic (mm Hg) 108 06/01/2017 [facility] Height 66 11/14/2016 [facility] Weight 154 11/14/2016 [facility] Diastolic (mm Hg) 68 11/14/2016 [facility] Systolic (mm Hg) 100 11/14/2016 [facility] Height 66 08/22/2016 [facility] Weight 141 08/22/2016 [facility] Diastolic (mm Hg) 80 08/22/2016 [facility] Systolic (mm Hg) 110 08/22/2016 [facility] Height 66 03/24/2016 [facility] Weight 154 03/24/2016 [facility] Diastolic (mm Hg) 80 03/24/2016 [facility] Systolic (mm Hg) 116 03/24/2016 [facility] Height 66 12/06/2015 [facility] Weight 154 12/06/[facility] Diastolic (mm Hg) 72 12/06/2015 [facility] Systolic (mm Hg) 125 12/06/[facility] Height 66 08/08/[facility] Weight 144 08/08/[facility] Diastolic (mm Hg) 75 08/08/2015 [facility] Systolic (mm Hg) 120 08/08/2015 [facility] Diastolic (mm Hg) 99 05/11/2013 [place] [facility] Systolic (mm Hg) 146 05/11/2013 [place] [facility] Rate 18 05/11/2013 [place] [facility] Rate 71 05/11/2013 [place] Temperature Oral (F) 98.0 F 05/11/2013 [place] Systolic (mm Hg) 140 05/11/2013 [place] Diastolic (mm Hg) 90 05/11/2013 [place] [facility] Temperature Oral (F) 98.0 F 05/11/2013 [place] Respitory Rate 18 05/11/2013 [place] [facility] Rate 85 05/11/2013 [facility] [place] Systolic (mm Hg) 141 05/11/2013 [place] [facility] Rate 18 05/11/2013 [place] Diastolic (mm Hg) 100 05/11/2013 [place] Heart Rate 90 05/11/2013 [place] Weight 54.545 05/11/2013 [place] Temperature Oral (F) 98.0 F 05/11/2013 [place] Encounters Location Location Encounter Encounter Reason Attending ADM NC Stat us Source Details Type Number For Provider Date Date Visit [facility] Inpatient [id number] EPIDURAL [place]DE[place] 08/24 08/28 Act dashawn [facility] 7 BLEED/PU [facility] [id number] NGOC 11/01 11/01 [facility] [place] 6 POPAT /[facility] [id number] SHERRY 05/10 05/10 Discharg [facility] [place] 7 [place] /2012 [facility] [place] weight loss [id number] 11/28 11/28 [facility] [id number]-ad0 /[facility] [id number] PAUL Mccann 3c8 [place] weight loss [id number] 11/28 11/28 Family [id number]-ac2 /2013 [facility] [id number] PAUL Mccann 325 [place] weight loss [id number] 11/28 11/28 [facility] [id number] /2013 [facility] [id number] PAUL Mccann c18 [place] weight loss [id number] 11/28 11/28 [facility] [id number]-d00 /2013 [facility] f-[id number] PAUL Mccann 820 [place] weight loss [id number] 11/28 11/28 [facility] 8c-410f-afe /2013 [facility] [id number] PAUL Mccann 390 [place] weight loss [id number] 11/28 11/28 Family a6-1dx6-60s /2013 [facility] b-[id number] PAUL Mccann 5ba [place] weight loss [id number] 11/28 11/28 [facility] cb-456c-927 /2013 [facility] [id number] PAUL Mccann 007 [place] weight loss [id number] 11/28 11/28 Family [id number]-js6 /2013 [facility] [id number] PAUL Mccann 65f [place] weight loss [id number] 11/28 11/28 Family a1-4fca-b3f /2013 [facility] [id number] PAUL Mccann 4dd [place] weight loss [id number] 11/28 11/28 Family [id number] /2013 [facility] [id number] PAUL Mccann 0fc [place] weight loss [id number] 11/28 11/28 Family f4-4688-9d6 /2013 [facility] [id number] PAUL Mccann 899 [place] weight loss [id number] 11/28 11/28 Family 50-4022-83c /2013 [facility] e-[id number] PAUL Mccann 9b2 [place] weight loss [id number] 11/28 11/28 [facility] 8c-7jw1-k35 /2013 [facility] a-[id number] PAUL Mccann 100 [place] weight loss [id number] 11/28 11/28 [facility] 8b-46o9-g51 /2013 [facility] f-[id number] PAUL Mccann ad2 [place] weight loss [id number] 11/28 11/28 [facility] cc-86n4-q46 /2013 [facility] [id number] PAUL Mccann b20 [place] weight loss [id number] 11/28 11/28 [facility] f8-7r1e-95b /2013 [facility] [id number] PAUL Mccann 4f2 [place] weight loss [id number] 11/28 11/28 [facility] [id number]-ad9 /2013 [facility] e-[id number] PAUL Mccann 68b [place] refill [id number] 12/29 12/29 [facility] f5-38n8-5l2 /2013 [facility] [id number] PAUL Mccann 9be [place] refill [id number] 12/29 12/29 [facility] c6-4260-a39 /2013 [facility] 4-[id number] PAUL Mccann 274 [place] refill [id number] 12/29 12/29 [facility] 46-4305-8c5 /2013 [facility] 6-[id number] PAUL Mccann 174 [place] refill [id number] 12/29 12/29 [facility] 90-4454-951 /2013 [facility] d-[id number] PAUL Mccann ad9 [place] refill [id number] 12/29 12/29 [facility] 16-46ea-982 /2013 [facility] e-[id number] PAUL Mccann 07a [place] refill [id number] 12/29 12/29 [facility] 6a-2g24-0w3 /2013 [facility] [id number] PAUL Mccann e61 [place] refill [id number] 12/29 12/29 [facility] f8-444f-843 /2013 [facility] [id number] PAUL Mccann 1d0 [place] refill [id number] 12/29 12/29 [facility] eb-05j5-400 /2013 [facility] d-[id number] PAUL Mccann fa8 [place] refill [id number] 12/29 12/29 [facility] f7-4277-a73 /2013 [facility] [id number] PAUL Mccann 3db [place] refill [id number] 12/29 12/29 [facility] 48-404b-9fc /2013 [facility] e-[id number] PAUL Mccann 63c [place] refill [id number] 12/29 12/29 [facility] 7e-6z6e-9w1 /2013 [facility] [id number] PAUL Mccann 56b [place] refill [id number] 12/29 12/29 [facility] 14-480d-9ee /2013 [facility] e-[id number] PAUL Mccann aea [place] ref[place] [id number] 12/29 12/29 [facility] 5d-08c5-0i3 /2013 [facility] 8-[id number] PAUL Mccann 71c [place] refill [id number] 12/29 12/29 [facility] 86-7k8j-iws /2013 [facility] b-[id number] PAUL Mccann 89c [place] refill [id number] 12/29 12/29 [facility] 9d-484c-88c /2013 [facility] b-[id number] PAUL Mccann 943 [place] refill [id number] 12/29 12/29 [facility] 8c-81h0-8eo /2013 [facility] [id number] PAUL Mccann 89e [place] refill [id number] 12/29 12/29 [facility] c9-4662-a99 /2013 [facility] f-[id number] PAUL Mccann 2fa [place] refill [id number] 01/05 01/05 [facility] 7f-7g7a-mf1 /2013 [facility] b-[id number] PAUL Mccann afc [place] refill [id number] 01/05 01/05 [facility] 40-4787-b24 /2013 [facility] a-[id number] PAUL Mccann bc2 [place] refill [id number] 01/05 01/05 [facility] 75-448f-b2b /2013 [facility] c-[id number] PAUL Mccann 284 [place] refill [id number] 01/05 01/05 [facility] 8c-65p3-34o /2013 [facility] 3-[id number] PAUL Mccann 8d6 [place] refill [id number] 01/05 01/05 [facility] 77-70h6-112 /2013 [facility] d-[id number] PAUL Mccann 466 [place] refill [id number] 01/05 01/05 [facility] 33-6r4x-84q /2013 [facility] [id number] PAUL Mccann 892 [place] refill [id number] 01/05 01/05 [facility] f7-4406-97a /2013 [facility] [id number] Dominic bai PA 3cb [place] refill [id number] 01/05 01/05 [facility] 3d-0k30-47a /2013 [facility] [id number] PAUL Mccann 7a9 [place] refill [id number] 01/05 01/05 [facility] 69-445e-90c /2013 [facility] a-[id number] PAUL Mccann b57 [place] refill [id number] 01/05 01/05 [facility] 1e-4r25-60l /2013 [facility] c-[id number] PAUL Mccann 9ae [place] refill [id number] 01/05 01/05 [facility] 09-7h6m-6ci /2013 [facility] [id number] PAUL Mccann 9b8 [place] refill [id number] 01/05 01/05 [facility] 44-4363-91a /2013 [facility] 9-[id number] PAUL Mccann 87b [place] refill [id number] 01/05 01/05 [facility] 63-45u5-441 /2013 [facility] c-[id number] Dominic bai PA 983 [place] refill [id number] 01/05 01/05 [facility] db-4634-9dd /2013 [facility] [id number] PAUL Mccann bf3 [place] refill [id number] 01/05 01/05 [facility] 4f-422a-a99 /2013 [facility] [id number] PAUL Mccann 320 [place] refill [id number] 01/05 01/05 [facility] 3a-73q3-im5 /2013 [facility] [id number] PAUL Mccann 11a [place] refill [id number] 01/05 01/05 [facility] da-21v8-u04 /2013 [facility] 4-[id number] PAUL Mccann d49 [place] refill [id number] 01/05 01/05 [facility] 5b-6ta4-r04 /2013 [facility] [id number] PALU Mccann 67d [place] refill [id number] 01/05 01/05 [facility] fa-5c9w-b86 /2013 [facility] [id number] PAUL Mccann 31b [place] refill [id number] 01/05 01/05 [facility] e6-4348-a3a /2013 [facility] 7-[id number] PAUL Mccann 6b7 [place] refill [id number] 01/05 01/05 [facility] da-4z45-s29 /2013 [facility] c-[id number] PAUL Mccann 140 [place] refill [id number] 01/05 01/05 [facility] b8-4948-a30 /2013 [facility] b-[id number] H PAUL bai nneka [place] refill [id number] 01/05 01/05 [facility] 57-4594-997 /2013 [facility] [id number] PAUL Mccann 5b1 [place] refill [id number] 01/05 01/05 [facility] 54-475a-97c /2013 [facility] d-[id number] PAUL Mccann 615 [place] refill [id number] 01/05 01/05 [facility] 86-4640-ad3 /2013 [facility] [id number] PAUL Mccann d44 [place] refill [id number] 01/05 01/05 [facility] 31-1ct5-9q2 /2013 [facility] a-[id number] PAUL Mccann 6e1 [place] refill [id number] 01/05 01/05 [facility] 15-447d-aa7 /2013 [facility] b-[id number] PAUL Mccann a70 [place] refill [id number] 01/05 01/05 [facility] ab-498b-9a6 /2013 [facility] b-[id number] PAUL Mccann 819 [place] refill [id number] 01/05 01/05 [facility] ec-4407-8c6 /2013 [facility] e-[id number] PAUL Mccann dec [place] refill [id number] 01/05 01/05 [facility] 5a-449f-965 /2013 [facility] d-[id number] PAUL Mccann 2c7 [place] refill [id number] 01/05 01/05 [facility] 2b-8ds2-1e2 /2013 [facility] c-[id number] PAUL Mccann 86f [place] refill [id number] 01/05 01/05 [facility] 6a-444a-bb9 /2013 [facility] [id number] PAUL Mccann b4c [place] refill [id number] 01/05 01/05 [facility] d6-6v3s-5m3 /2013 [facility] [id number] PAUL Mccann e81 [place] refill [id number] 01/05 01/05 [facility] fc-17s7-014 /2013 [facility] 5-[id number] PAUL Mccann eac [place] Unknown [id number] 08/14 08/14 [facility] 1c-4400-ac1 /2014 [facility] e-[id number] PAUL Mccann 395 [place] Unknown [id number] 08/14 08/14 [facility] 50-4302-a58 /2014 [facility] [id number] PAUL Mccann ad0 [place] Unknown [id number] 08/14 08/14 [facility] 49-405f-85c /2014 [facility] [id number] PAUL Mccann 32d [facility] [id number] 08/14 08/14 [facility] 74-49bf-95c /2014 [facility] [id number] PAUL Mccann aea [facility] [id number] 08/14 08/14 [facility] [id number] /2014 [facility] [id number] PAUL Mccann 72c [facility] [id number] 08/14 08/14 [facility] 21-4292-af0 /2014 [facility] [id number] PAUL Mccann 79f [facility] [id number] 08/14 08/14 [facility] 9c-453b-a0d /2014 [facility] [id number] PAUL Mccann f05 [facility] Unknown [id number] 08/14 08/14 [facility] 0f-11t1-85s /2014 [facility] [id number] PAUL Mccann 6d9 [facility] Unknown [id number] 08/14 08/14 [facility] bf-8c8j-70m /2014 [facility] 0-[id number] PAUL Mccann bfe [place] Unknown [id number] 08/14 08/14 [facility] 05-475e-9f0 /2014 [facility] 4-[id number] PAUL Mccann 8e1 [facility] [id number] 08/14 08/14 [facility] a2-474d-b15 /2014 [facility] [id number] APUL Mccann 7a0 [facility] [id number] 08/14 08/14 [facility] 96-4027-8e /2014 [facility] a-[id number] PAUL Mccann 6da [place] Unknown [id number] 08/14 08/14 [facility] 10-91j3-1pn /2014 [facility] d-[id number] PAUL Mccann baf [place] Unknown [id number] 08/14 08/14 [facility] c6-4455-8da /2014 [facility] [id number] PAUL Mccann 600 [place] Unknown [id number] 08/14 08/14 [facility] dd-4346-85c /2014 [facility] [id number] PAUL Mccann 8f0 [place] Unknown [id number] 08/14 08/14 [facility] 9f-47af-a0b /2014 [facility] f-[id number] PAUL Mccann fc1 [facility] [id number] 08/14 08/14 [facility] f4-4318-a27 /2014 [facility] [id number] PAUL Mccann a90 [place] Unknown [id number] 09/06 09/06 [facility] b8-4487-81d /2014 [facility] [id number] [place] PAUL 6c2 [place] Unknown [id number] 09/08 09/08 [facility]9s43[facility]rly [facility] [id number] y [place] PAUL 2f8 [facility] Outpt Diag [id number] [place] 09/18 09/19 [facility] 3 [facility] /2014 [facility] [place] refill [id number] 09/22 09/22 Family trazadone [id number] /2014 [facility] [place] [facility] 1-8o25f11v3 PAUL Mccann [address] [place] refill [id number] 09/22 09/22 [facility] trazadone 98-4288-a63 /2014 Fa [facility] 5-64btih352 PAUL Mccann e2f [place] refill [id number] 09/22 09/22 [facility] trazadone b4-9ff2-b7q /2014 [facility] a-82kna8412 PAUL Mccann 576 [place] refill [id number] 09/22 09/22 [facility] trazadone 98-0c04-p29 /2014 [facility] 7-246vf70r3 PAUL Mccann 27c [place] refill [id number] 09/22 09/22 [facility] trazadone b4-471f-9af /2014 [facility] 7-l3j6b3b6o PAUL Mccann 477 [place] refill [id number] 09/22 09/22 [facility] trazadone 81-04a7-055 /2014 [facility] 9-nnth8tr49 PAUL Mccann ec0 [place] refill [id number]-b8 09/22 09/22 [facility] trazadone 62-4939-a76 /2014 [facility] 8-sw8a2ug42 PAUL Mccann 42f [place] refill [id number] 09/22 09/22 [facility] trazadone 7a-4544-967 /2014 [facility] 8-23403f1gz PAUL Mccann 74c [place] refill [id number] 09/22 09/22 [facility] trazadone 8b-4386-ab3 /2014 [facility] 9-56a9n5817 PAUL Mccann 159 [place] refill [id number]-oo 09/22 09/22 [facility] trazadone 78-443b-acc /2014 [facility] 8-zv1xy5y12 PAUL Mccann fa2 [place] refill [id number] 09/22 09/22 [facility] trazadone 30-2eh1-yzc /2014 [facility] f-ghx03iww6 PAUL Mccann 30b [place] refill [id number] 09/22 09/22 [facility] trazadone 22-459b-9a8 /2014 [facility] a-c02u5n08b PAUL Mccann 8ab [place] refill [id number]-rz 09/22 09/22 [facility] trazadone 13-4515-b86 /2014 [facility] e-q3b45rfqr PAUL Mccann 0b1 [place] refill [id number] 09/22 09/22 [facility] trazadone 2a-4299-9e6 /2014 [facility] 7-4d0xh5462 PAUL Mccann f82 [place] refill [id number] 09/22 09/22 [facility] trazadone 78-4628-a20 /2014 [facility] 8-dud426e82 PAUL Mccann 523 [place] refill [id number] 09/22 09/22 [facility] trazadone 7b-7m63-i72 /2014 [facility] 1-3490z42k7 PAUL Mccann e2a [place] refill [id number] 09/22 09/22 [facility] trazadone d8-4760-ac5 /2014 [facility] 5-5r4t111v7 PAUL Mccann a3f [place] Unknown [id number] 09/23 09/23 [facility] 77-4100-89f /2014 [facility] c-g1g1r03s7 PAUL Mccann 4c6 [place] Unknown [id number] 09/23 09/23 [facility] 88-4702-ad0 /2014 [facility] 7-6441z6308 PAUL Mccann 057 [place] Unknown [id number] 09/23 09/23 [facility] 42-2oz6-sd5 /2014 [facility] 8-8lb0vnqc0 PAUL Mccann a5a [place] Unknown [id number] 09/23 09/23 [facility] 16-4cdf-8f2 /2014 [facility] 4-o6264l7hx Dominic bai PA 32f [place] Unknown [id number] 02/14 02/14 [facility] 30-4beb-9cc /2014 [facility] a-993136b13 H PAUL bai [address] [place] Unknown [id number] 09/23 09/23 [facility] dc-4346-8a5 /2014 [facility] b-6k626on5o PAUL Mccann 0b0 [place] Unknown [id number] 09/23 09/23 [facility] 6f-4a70-75w /2014 [facility] 5-62xc48k24 PAUL Mccann 865 [facility] Unknown [id number] 09/23 09/23 S [facility] 18-4fab-8ee /2014 [facility] 2-k7fa24z68 PAUL Mccann 282 [facility] Unknown [id number] 09/23 09/23 [facility] 1c-45bb-8e9 /2014 [facility] f-[id number] Dominic bai PA bd0 [facility] Unknown [id number] 09/23 09/23 [facility] 97-83k1-9s6 /2014 [facility] 3-d77d1u0a8 PAUL Mccann 05d [facility] Unknown [id number] 09/23 09/23 [facility] 26-45cb-8fa /2014 [facility] 6-0lxb8vn43 PAUL Mccann 529 [facility] Unknown [id number] 09/23 09/23 [facility] 3a-9k8p-790 /2014 [facility] 1-453g27s8m PAUL Mccann 7b5 [facility] Unknown [id number] 09/23 09/23 [facility] ec-47fb-903 /2014 [facility] 1-ji19q83l9 PAUL Mccann 408 [facility] Unknown [id number] 09/23 09/23 S [facility] 5e-426d-a7b /2014 [facility] c-u8i252ei1 PAUL Mccann cbd [facility] Unknown [id number] 09/23 09/23 S [facility] Family be-5m9z-7yo /2014 [facility] a-[id number] PAUL Mccann f51 [place] Unknown [id number] 09/23 09/23 [facility] c8-4fda-b3d /2014 [facility] f-[id number] PAUL Mccann 556 [place] Unknown [id number] 09/23 09/23 [facility] e3-42m1-1q3 /2014 [facility] 2-8847093b3 PAUL Mccann c2e [place] from a16ds20f-1r 11/22 11/22 [facility] e.r./chest ca-1qp8-7rq /2014 [facility] 8-a4297426h PAUL Mccann cd5 [place] from [id number] 11/22 11/22 [facility] e.r./chest 02-8g31-010 /2014 [facility] pain 5-2s662sv3a PAUL Mccann b27 [place] from [id number] 11/22 11/22 [facility] e.r./chest bd-419d-carlyn /2014 [facility] pain 2-o26wrq95h PAUL Mccann 23a [place] from [id number] 11/22 11/22 [facility] e.r./chest 9d-467c-88e [facility] 3-6kp57u0so PAUL Mccann 8a5 [place] from [id number] 11/22 11/22 [facility] e.r./chest 5b-4446-a32 /2014 [facility] pain c-zf712t25s PAUL Mccann 725 [place] from [id number] 11/22 11/22 [facility] e.r./chest 23-9o89-sg7 /2014 [facility] b-[id number] PAUL Mccann 7a4 [place] from 5q245r6z-68 11/22 11/22 [facility] e.r./chest 06-418e-917 /2014 [facility] pain 1-jl59379o5 PAUL Mccann 45b [place] from [id number]-su 11/22 11/22 [facility] e.r./chest 23-7x2o-4i0 /2014 [facility] pain 7-9p3916xqd PAUL Mccann 4eb [place] from [id number] 11/22 11/22 Family e.r./chest 7f-4413-ba0 /2014 [facility] f-[id number] PAUL Mccann 6a5 [place] from f8gg4jv0-bu 11/22 11/22 [facility] e.r./chest ea-4ch0-a36 /2014 [facility] e-5or6gk13e PAUL Mccann d81 [place] from 7z0n96jz-04 11/22 11/22 Family e.r./chest 07-418f-b62 /2014 [facility] f-lq4r009v6 PAUL Mccann ef5 [place] from 28xv26rr-fx 11/22 11/22 [facility] e.r./chest 7f-4330-aaa /2014 [facility] f-o76745r8a PAUL Mccann f10 [place] from cx179mi5-0u 11/22 11/22 Family e.r./chest ba-442e-aa1 /2014 [facility] pain 0-534cpb884 PAUL Mccann c9a [place] from 163g0vk0-54 11/22 11/22 Family e.r./chest 2c-464b-8c8 /2014 [facility] 3-hyjc72614 PAUL Mccann 263 [place] from 7vnn7263-2x 11/22 11/22 Family e.r./chest 44-44ed-978 /2014 [facility] pain b-650k716ec PAUL Mccann 34c [place] from x92561b6-66 11/22 11/22 Family e.r./chest 0e-417b-aa6 /2014 [facility] pain e-1aac62d4h PAUL Mccann 99f [place] from t5o2p215-14 11/22 11/22 Family e.r./chest 3f-65b3-qs9 /2014 [facility] pain 9-2304vhpg3 PAUL Mccann 21a [place] 1 month e82d8757-tr 12/22 12/22 S L Family f/up 10-4123-a07 /2014 [facility] f-77q9j9b68 PAUL Mccann 48b [place] 1 month 1b325j00-q1 12/22 12/22 S [facility] Family f/up 0e-6i92-13w /2014 [facility] 0-qvw08dt25 PAUL Mccann 66f [place] 1 month u44b2i56-47 12/22 12/22 S [facility] Family f/up fb-469c-942 /2014 [facility] a-n96rk2ejn PAUL Mccann 860 [facility] 1 month 751s6eqq-m7 12/22 12/22 S [facility] Family f/up fa-465e-a92 /2014 [facility] 4-eki920q8e PAUL Mccann 57a [place] 1 month 58z6gxv8-3q 12/22 12/22 S [facility] Family f/up bd-4bdb-a41 /2014 [facility] a-0464ikq31 PAUL Mccann a7f [facility] 1 month 1xakxr96-b1 12/22 12/22 S [facility] Family f/up 14-90v7-g83 /2014 [facility] d-835gq061c PAUL Mccann ab9 [facility] 1 month bpz5938h-64 12/22 12/22 S [facility] Family f/up 57-8ga6-571 /2014 [facility] 1-v7n54w880 PAUL Mccann 2b5 [place] 1 month kj4f4d92-nn 12/22 12/22 S [facility] Family f/up d1-6ur4-0zr /2014 [facility] f-4455g1rg4 PAUL Mccann e4a [place] 1 month 72t483f6-8e 12/22 12/22 S L Family f/up 96-4sf9-ubv /2014 [facility] 1-1qa9m3j49 PAUL Mccann fef [facility] 1 month o8pt1l55-p2 12/22 12/22 S L Family f/up bc-431e-bb7 /2014 [facility] a-21z99az9u PAUL Mccann cbc [facility] 1 month 87546d3s-15 12/22 12/22 S L Family f/up 2a-69q9-3i4 /2014 [facility] c-5q8l626z3 PAUL Mccann 18a [facility] 1 month 388s7x6b-1v 12/22 12/22 S [facility] Family f/up 56-4725-bc5 /2014 [facility] f-c578yn2g7 PAUL Mccann 8d0 [facility] 1 month u580662s-8t 12/22 12/22 S [facility] Family f/up 92-1w43-a83 /2014 [facility] f-823ivg2sc PAUL Mccann d4a [facility] 1 month 99pso93z-wh 12/22 12/22 S [facility] Family f/up 1c-4334-9af /2014 [facility] f-[id number] PAUL Mccann f5b [facility] 1 month 8jvruiu0-11 12/22 12/22 S [facility] Family f/up 01-27w0-r46 /2014 [facility] 2-u23yqobt4 PAUL Mccann 2f4 [facility] 1 month 78zr1wo7-j2 12/22 12/22 S [facility] Family f/up e1-3yf8-440 /2014 [facility] 0-s6d9389e2 PAUL Mccann a1b [facility] 1 month [id number] 12/22 12/22 S [facility] Family f/up 4b-49fc-bf7 /2014 [facility] 8-4t08w29iz PAUL Mccann 9d2 [facility] REFILL [id number] 01/22 01/22 Family 33-45ab-94d /2014 [facility] 4-01q79x784 PAUL Mccann dfb [facility] REFILL [id number] 01/22 01/22 Family 18-4798-882 /2014 [facility] a-90r10xurj PAUL Mccann 9a9 [place] REFILL [id number]-v9 01/22 01/22 [facility] 2b-40bb-bc3 /2014 [facility] c-1y7512o98 PAUL Mccann 82b [place] REFILL 406gea9g-20 01/22 01/22 [facility] d3-4078-918 /2014 [facility] d-72ee274fy PAUL Mccann 210 [place] REFILL 5fjvv008-9r 01/22 01/22 [facility] 1d-1t8t-f07 /2014 [facility] 2-3a6j85s56 PAUL Mccann 206 [place] REFILL l3293lrq-03 01/22 01/22 [facility] 09-38o6-q53 /2014 [facility] c-[id number] PAUL Mccann 3bd [place] REFILL 26s3zaj7-w3 01/22 01/22 [facility] 0e-1d05-227 /2014 [facility] 9-96qop3d4v PAUL Mccann d35 [place] REFILL 4u16z1t6-a2 01/22 01/22 [facility] ca-4710-b83 /2014 [facility] f-k5z652wd9 PAUL Mccann 88c [place] REFILL 27j6s54e-88 01/22 01/22 [facility] 64-4cdd-884 /2014 [facility] 6-69z2235ev PAUL Mccann 44c [place] REFILL k8i21vsk-4n 01/22 01/22 [facility] 73-21n2-1u4 /2014 [facility] 9-063574ji0 PAUL Mccann 4e9 [place] REFILL 0dx5u3qv-58 01/22 01/22 [facility] 91-424e-987 /2014 [facility] e-60j4269uz PAUL Mccann 1d8 [place] REFILL d8mtugf4-7m 01/22 01/22 [facility] 5f-6w64-320 /2014 [facility] 9-29q7n0860 PAUL Mccann b4d [place] REFILL md73n92p-01 01/22 01/22 [facility] f0-7d75-rc5 /2014 [facility] 1-8f821633u PAUL Mccann 0b2 [place] REFILL 3w800r07-29 01/22 01/22 [facility] f9-44de-9f0 /2014 [facility] 6-7rq1n488d PAUL Mccann 45d [place] REFILL 7fzy744j-u3 01/22 01/22 [facility] 94-10l6-21d /2014 [facility] 4-4w3ht9a2y PAUL Mccann 8ff [place] REFILL 713q35zk-y9 01/22 01/22 [facility] ae-2t85-f5h /2014 [facility] c-98332vs07 PAUL Mccann 42e [place] REFILL 69j7079g-30 01/22 01/22 [facility] af-7w7f-8g2 /2014 [facility] 2-r6qm052i2 PAUL Mccann 8d4 [place] EAR ACHE, 4u0n3bz8-93 01/31 01/31 [facility] PAIN IN HIP e1-7rl0-cv6 /2014 [facility] e-6z8m8fm16 PAUL Mccann 77b [place] EAR ACHE, z6f0s856-62 01/31 01/31 [facility] PAIN IN HIP ca-4458-b69 /2014 [facility] 0-[id number] PAUL Mccann 933 [place] EAR ACHE, y05d0q1q-lw 01/31 01/31 [facility] PAIN IN HIP 78-4eae-add /2014 [facility] 3-205z44052 PAUL Mccann 36b [place] EAR ACHE, [id number] 01/31 01/31 [facility] PAIN IN HIP f7-20n8-fyn /2014 [facility] e-t32966s14 PAUL Mccann 317 [place] EAR ACHE, 316095fv-27 01/31 01/31 [facility] PAIN IN HIP 59-491a-95c /2014 [facility] 5-98tgv6r81 PAUL Mccann 1fb [place] EAR ACHE, 9whjt731-69 01/31 01/31 [facility] PAIN IN HIP ec-0e1z-020 /2014 [facility] e-caebebebf H bhumika , [place] 9d3 [place] EAR ACHE, ic2qzzo6-63 01/31 01/31 [facility] PAIN IN HIP 66-9y4b-a9j /2014 [facility] 3-[id number] H eakellie , [place] bfa [place] EAR ACHE, q4q637fq-09 01/31 01/31 [facility] PAIN IN HIP 33-4898-bee /2014 [facility] e-[id number] H ealtPAUL alfaro b9b [place] EAR ACHE, ny049na4-9f 01/31 01/31 [facility] PAIN IN HIP 4b-31a9-e3n /2014 [facility] f-46l5jcuny H ealtPAUL alfaro 725 [place] EAR ACHE, l84j9eu1-a7 01/31 01/31 [facility] PAIN IN HIP b4-1a1n-st6 /2014 [facility] 6-gku2qq03h H ealth , [place] 8df [place] EAR ACHE, 806y0k99-lh 01/31 01/31 [facility] PAIN IN HIP 76-4376-a80 /2014 [facility] c-ave8q5v7i H PAUL bai 7e9 [place] EAR ACHE, 16g918o3-4d 01/31 01/31 [facility] PAIN IN HIP 4b-8s82-52b /2014 [facility] 1-j1r9fu4k4 H ealtPAUL alfaro de4 [place] EAR ACHE, 5ugsf38f-s3 01/31 01/31 [facility] PAIN IN HIP 9a-4478-b82 /2014 [facility] d-3ac7740ap H ealtdominic PA 131 [place] EAR ACHE, [id number] 01/31 01/31 [facility] PAIN IN HIP c5-8q4k-v40 /2014 [facility] 0-a64ls1740 H ealtPAUL alfaro ef2 [place] EAR ACHE, md3m9xug-r5 01/31 01/31 [facility] PAIN IN HIP e7-8jo7-tjk /2014 [facility] b-79cm116b3 H ealth PAUL 69c [place] EAR ACHE, 3wfv194w-36 01/31 01/31 [facility] PAIN IN HIP 0e-49fb-be3 /2014 [facility] b-y7dp29s0y PAUL Mccann c9b [place] EAR ACHE, 44ztv1jg-e8 01/31 01/31 [facility] PAIN IN HIP e6-420b-84d /2014 [facility] 3-5g27d20pb PAUL Mccann 3df [place] refill req [id number] 02/15 02/15 [facility] 2c-68e3-mxm /2014 [facility] 8-2eg4z2z34 PAUL Mccann a25 [place] refill req [id number] 02/15 02/15 [facility] 1c-4457-ab0 /2014 [facility] 5-706038m89 PAUL Mccann 488 [place] refill req [id number] 02/15 02/15 [facility] 00-19q5-yw3 /2014 [facility] d-5zv186e73 PAUL Mccann c01 [place] refill req [id number] 02/15 02/15 [facility] 28-4478-980 /2014 [facility] 5-a2e8b4jte PAUL Mccann 7dc [place] refill req [id number] 02/15 02/15 [facility] 0f-24k2-976 /2014 [facility] 9-j33jv4u6g PAUL Mccann c6c [place] refill req [id number] 02/15 02/15 [facility] 2b-435a-84e /2014 [facility] 5-z82f9fm69 PAUL Mccann 7b7 [place] refill req [id number] 02/15 02/15 [facility] 7d-4h56-63r /2014 [facility] 2-5mkb39xzy PAUL Mccann 529 [place] refill req [id number] 02/15 02/15 [facility] 56-491f-be2 /2014 [facility] 8-6038n51qo PAUL Mccann 3d9 [place] refill req [id number] 02/15 02/15 [facility] 04-4dde-b94 /2014 [facility] f-[id number] PAUL Mccann a22 [place] refill req [id number]-e2 02/15 02/15 [facility] 44-1m0v-kjl /2014 [facility] c-3b089u9c0 PAUL Mccann 0e0 [place] refill req [id number] 02/15 02/15 [facility] ee-25n5-y43 /2014 [facility] 9-24z45a287 PAUL Mccann c35 [place] refill req [id number] 02/15 02/15 [facility] 0c-3m14-h3u /2014 [facility] e-[id number] PAUL cMcann aa0 [place] refill req [id number] 02/15 02/15 [facility] f6-413e-816 /2014 [facility] e-5825h4s30 PAUL Mccann 1ee [place] refill req [id number] 02/15 02/15 [facility] 41-1e42-gll /2014 [facility] d-5utl429vd PAUL Mccann 3b8 [place] refill req [id number] 02/15 02/15 [facility] 11-3f4h-t50 /2014 [facility] a-58047w1x6 PAUL Mccann 9e6 [place] refill req [id number] 02/15 02/15 [facility] 5c-7p6n-h18 /2014 [facility] 8-18170nrkn PAUL Mccann d3f [place] ref[place] req [id number] 02/15 02/15 [facility] 28-4f73-x99 /2014 [facility] 4-2xsdr9387 PAUL Mccann 2b5 [place] REFILL [id number]-94 03/20 03/20 SL Family CLONAZPEM e4-4999-b2e /2014 [facility] e-feb13vv2g PAUL Mccann 7d2 [place] REFILL [id number] 03/20 03/20 SL Family CLONAZPEM 5d-474d-b11 /2014 [facility] f-[id number] PAUL Mccann 799 [place] REFILL [id number] 03/20 03/20 SL Family CLONAZPEM 6b-4g8g-9t0 /2014 [facility] 2-5hzt00503 PAUL Mccann mandi [place] REFILL 47810udt-5h 03/20 03/20 SL Family CLONAZPEM df-4666-939 /2014 [facility] 7-td4n5u0s0 PAUL Mccann ff4 [place] REFILL 644m5pf7-d7 03/20 03/20 SL Family CLONAZPEM cc-420d-ac [facility] d-43n8vbo3q PAUL Mccann 698 [place] REFILL 726jwr06-56 03/20 03/20 SL Family CLONAZPEM a9-45ee-98f [facility] c-0v649p5x6 PAUL Mccann 08a [place] REFILL 4a25z174-y9 03/20 03/20 SL Family CLONAZPEM 73-1l45-9ce [facility] 2-575791tj0 PAUL Mccann ce7 [place] REFILL [id number] 03/20 03/20 [facility] Family CLONAZPEM 6e-4abd-a41 [facility] 4-27pxh9m45 PAUL Mccann fcf [place] REFILL [id number] 03/20 03/20 [facility] CLONAZPEM af-4258-996 /2014 [facility] 6-005kw4958 PAUL Mccann a7c [place] REFILL [id number] 03/20 03/20 SL Family CLONAZPEM 68-4021-ac4 /2014 [facility] d-[id number] PAUL Mccann 02f [place] REFILL 5v9nafc2-5p 08/11 08/11 [facility] Family CLONAZPEM 1a-4iv4-642 /2014 [facility] 7-10c48n004 PAUL Mccann 352 [place] REFILL 728gc51x-e3 03/20 03/20 SL Family CLONAZPEM e6-1d80-6p9 /2014 [facility] c-2i806v8us PAUL Mccann e64 [place] REFILL [id number]-3q 03/20 03/20 SL Family CLONAZPEM e9-5os6-238 /2014 [facility] 4-vb05dkrl1 PAUL Mccann f94 [place] REFILL v0m1939f-8w 03/20 03/20 [facility] Family CLONAZPEM 88-41ed-b22 /2014 [facility] 6-8063q8513 PAUL Mccann 7e8 [place] REFILL 06q17ph8-58 03/20 03/20 SL Family CLONAZPEM 1f-4139-a55 /2014 [facility] 5-9y66wk8k7 PAUL Mccann 933 [place] REFILL 48mj53hd-68 03/20 03/20 SL Family CLONAZPEM 3e-4192-80c /2014 [facility] 1-94m77e8r4 PAUL Mccann 22c [place] REFILL 2mi3h04c-8e 03/20 03/20 SL Family CLONAZPEM 1d-7jx8-fbk /2014 [facility] b-[id number] PAUL Mccann a0c [place] Unknown [id number] 04/29 04/29 S L Family 46-8ju6-c7t /2014 [facility] 7-9858l9e6a PAUL Mccann df8 [place] Unknown [id number] 04/29 04/29 S L Family 47-3o72-k7w /2014 [facility] 3-3o777h997 PAUL Mccann 88d [place] Unknown [id number] 04/29 04/29 S L Family 05-4142-b99 /2014 [facility] d-945092z6h PAUL Mccann fb7 [place] Unknown [id number] 04/29 04/29 S L Family ca-0x0d-h2w /2014 [facility] [id number] PAUL Mccann 6ce [place] Unknown [id number] 04/29 04/29 S L Family dd-489f-a9e /2014 [facility] b-7m2bu1v53 PAUL Mccann 576 [facility] Unknown [id number] 04/29 04/29 S L Family 15-40ca-9dc /2014 [facility] 8-000q684gv PAUL Mccann 6a4 [facility] Unknown [id number] 04/29 04/29 S L Family 10-4483-bb8 /2014 [facility] a-5w3f00y1w PAUL Mccann 408 [facility] Unknown [id number] 04/29 04/29 S L Family b8-3mz5-j87 /2014 [facility] 0-o4c2ie47f PAUL Mccann 055 [facility] Unknown [id number] 04/29 04/29 S L Family a5-8x7a-9cb /2014 [facility] 6-n489319vx PAUL Mccann a6c [facility] Unknown [id number] 04/29 04/29 S L Family e7-9p1p-w4g /2014 [facility] 0-lph1c549f PAUL Mccann 012 [facility] Unknown [id number] 04/29 04/29 S L Family 9a-4843-bbc /2014 [facility] f-in72639ni PAUL Mccann 8ff [facility] Unknown [id number] 04/29 04/29 S L Family 75-410e-a0e /2014 [facility] d-[id number] PAUL Mccann faa [facility] Unknown [id number] 04/29 04/29 S L Family 1d-5z9w-bkx /2014 [facility] c-f96243e2m PAUL Mccann a95 [facility] Unknown [id number] 04/29 04/29 S L Family 81-404e-a81 /2014 [facility] 9-[id number] PAUL Mccann 619 [facility] Unknown [id number] 04/29 04/29 S L Family fb-86i4-zki /2014 [facility] 4-1j6ixw394 Dominic bai , PAUL 817 [facility] Unknown [id number] 04/29 04/29 S L Family f4-8l8p-ud7 /2014 [facility] f-m48q19e3s PAUL Mccann 714 [facility] Unknown [id number] 04/29 04/29 S [facility] [id number] /2014 [facility] [id number] PAUL Mccann 02a [place] [facility] [id number] 07/16 07/16 Family CYCLOBENZAP [id number] /2014 [facility] RINE [id number] PAUL Mccann f87 [place] [facility] [id number] 07/16 07/16 [facility] CYCLOBENZAP [id number]-a53 /2014 [facility] b-[id number] PAUL Mccann 46f [place] [facility] [id number] 07/16 07/16 [facility] CYCLOBENZAP [id number]-954 /2014 [facility] [id number] PAUL Mccann 345 [place] [facility] [id number] 07/16 07/16 [facility] CYCLOBENZAP [id number]-41fa-adf /2014 [facility] [id number] PAUL Mccann 733 [place] [facility] [id number] 07/16 07/16 [facility] CYCLOBENZAP [id number] /2014 [facility] [id number] PAUL Mccann 26f [place] [facility] [id number] 07/16 07/16 [facility] CYCLOBENZAP 8e-63m2-31i /2014 [facility] [id number] PAUL Mccann 4e9 [place] [facility] [id number] 07/16 07/16 [facility] CYCLOBENZAP bd-488b-[id number] /2014 [facility] b-[id number] PAUL Mccann b40 [place] [facility] [id number] 07/16 07/16 [facility] CYCLOBENZAP e2-473b-97e /2014 [facility] [id number] PAUL Mccann 4c9 [place] [facility] [id number] 07/16 07/16 [facility] CYCLOBENZAP 21-12z7-2q0 /2014 [facility] [id number] PAUL Mccann 336 [place] [facility] [id number] 07/16 07/16 [facility] CYCLOBENZAP [id number]-4492-a92 /2014 [facility] e-[id number] PAUL Mccann fda [place] [facility] [id number] 07/16 07/16 [facility] CLONAZEPAM 83-4ts8-w92 /2014 [facility] [id number] PAUL Mccann acc [place] [facility] [id number] 07/16 07/16 [facility] CLONAZEPAM b9-43c3-bwo /2014 [facility] [id number] PAUL Mccann 93d [place] [facility] [id number] 07/16 07/16 [facility] CLONAZEPAM c8-72v5-qwa /2014 [facility] [id number] PAUL Mccann e8f [place] [facility] [id number] 07/16 07/16 [facility] CLONAZEPAM fd-4212-aa4 /2014 [facility] d-[id number] PAUL Mccann d44 [place] [facility] [id number] 07/16 07/16 [facility] CLONAZEPAM 62-0q01-7ri /2014 [facility] [id number] PAUL Mccann [address] [place] [facility] [id number] 07/16 07/16 [facility] CLONAZEPAM [id number]-x93 /2014 [facility] [id number] PAUL Mccann 8b0 [place] [facility] [id number] 07/16 07/16 [facility] CLONAZEPAM 77-4195-8ba /2014 F [facility] 7-[id number] PAUL Mccann 3f2 [place] [facility] [id number] 07/16 07/16 [facility] CLONAZEPAM 03-1ey9-26t /2014 F [facility] d-[id number] PAUL Mccann e41 [place] [facility] [id number] 07/16 07/16 [facility] CLONAZEPAM a7-47fa-997 /2014 F [facility] [id number] PAUL Mccann 38f [place] [facility] [id number] 07/16 07/16 [facility] CLONAZEPAM f2-9du5-t66 /2014 F [facility] [id number] PAUL Mccann f57 [place] [facility] [id number] 07/16 07/16 [facility] TRAZADONE 5a-420c-8bf /2014 Fa [facility] c-[id number] PAUL Mccann 7ac [place] [facility] [id number] 07/16 07/16 [facility] TRAZADONE d4-41ec-8ca /2014 Fa [facility] b-[id number] PAUL Mccnan 796 [place] [facility] [id number] 07/16 07/16 [facility] TRAZADONE 69-4589-a8c /2014 Fa [facility] [id number] PAUL Mccann c8b [place] [facility] [id number] 07/16 07/16 [facility] TRAZADONE 7b-485b-9f5 /2014 Fa [facility] [id number] PAUL Mccann 540 [place] [facility] [id number] 07/16 07/16 [facility] TRAZADONE 37-4631-b52 /2014 Fa [facility] [id number] PAUL Mccann 3b1 [place] [facility] [id number] 07/16 07/16 [facility] TRAZADONE 1e-450c-ac0 /2014 Fa [facility] [id number] PAUL Mccann ec8 [place] [facility] [id number] 07/16 07/16 [facility] TRAZADONE a5-4ecf-86f /2014 [facility] [id number] PAUL Mccann 96f [place] [facility] [id number] 07/16 07/16 [facility] TRAZADONE 54-4586-aa3 /2014 [facility] 2-[id number] H PAUL bai 949 [place] [facility] [id number] 07/16 07/16 [facility] TRAZADONE af-4476-aef /2014 [facility] b-[id number] PAUL Mccann [address] [place] [facility] [id number] 07/16 07/16 [facility] TRAZADONE 3b-4747-899 /2014 [facility] d-[id number] PAUL Mccann 13a [place] [facility] [id number] 07/16 07/16 [facility] TRAZADONE 89-2w08-3z6 /2014 [facility] d-[id number] H PAUL bai 3e8 [place] [facility] [id number] 07/16 07/16 [facility] TRAZADONE 9f-16v1-05q /2014 [facility] d-[id number] PAUL Mccann 0d5 [place] [facility] [id number] 07/16 07/16 [facility] TRAZADONE e1-1o4m-n84 /2014 [facility] [id number] H PAUL bai [address] [place] REFILL [id number] 07/16 07/16 [facility] TRAZADONE d5-4006-b5d /2014 [facility] 5-97v1fq674 PAUL Mccann [address] [place] RE[facility]LL 13x1y57w-cq 07/16 07/16 [facility] TRAZADONE 25-0e00-n49 /2014 [facility] c-5fux2w097 PAUL Mccann 6b3 [place] RE[facility]LL [id number]-96 07/16 07/16 [facility] TRAZADONE c9-455d-b3f /2014 [facility] e-[id number] H PAUL bai 6fa [place] RE[facility]LL [id number]-53 07/16 07/16 [facility] TRAZADONE 6a-0zm3-ie1 /2014 [facility] 0-[id number] H PAUL bai ac5 [place] RE[facility] [id number] 07/16 07/16 [facility] TRAZADONE f7-1x4l-ztl /2014 [facility] a-[id number] H PAUL bai 38a [place] RE[facility]LL [id number] 07/16 07/16 Family TRAZADONE 61-43ec-b4f /2014 [facility] e-v800k1x2e PAUL Mccann 496 [place] RE[facility]LL [id number]-j8 07/16 07/16 Family TRAZADONE 73-438a-84a /2014 [facility] 8-2773ai823 PAUL Mccann 441 [place] RE[facility]LL 7ua5t7sm-6m 07/16 07/16 Family CYCLOBENZAP d0-83o4-if7 /2014 [facility] b-1g3vsk20w PAUL Mccann d42 [place] RE[facility]LL [id number] 07/16 07/16 [facility] CYCLOBENZAP 49-94c0-0ax /2014 [facility] 2-qov51vt7w PAUL Mccann 64e [place] RE[facility]LL [id number] 07/16 07/16 [facility] CYCLOBENZAP 7b-9o00-0y6 /2014 [facility] 5-2j9q77fn0 PAUL Mccann fa0 [place] RE[facility]LL 6mcx89c5-v8 07/16 07/16 [facility] CYCLOBENZAP a6-4499-818 /2014 [facility] 2-00335x70b PAUL Mccann 294 [place] RE[facility]LL fsop70q1-dx 07/16 07/16 [facility] CYCLOBENZAP 9c-4717-8f2 /2014 [facility] c-955yc8q33 PAUL Mccann 446 [place] RE[facility]LL [id number]-15 07/16 07/16 [facility] CYCLOBENZAP 24-494d-9ab /2014 [facility] a-vi92f5r18 PAUL Mccann 17b [place] RE[facility]LL [id number] 07/16 07/16 [facility] CYCLOBENZAP 51-6w55-a07 /2014 [facility] 1-n9p2w3q51 PAUL Mccann d6a [place] RE[facility]LL [id number]-65 07/16 07/16 [facility] CLONAZEPAM 8d-414a-b66 /2014 [facility] 7-6089z064g PAUL Mccann 6cc [place] RE[facility]LL [id number] 07/16 07/16 [facility] CLONAZEPAM 5d-401d-a90 /2014 [facility] 3-mkq7466yt PAUL Mccann 9c2 [place] RE[facility]LL [id number]-b7 07/16 07/16 Family CLONAZEPAM 1c-49dd-93c /2014 [facility] e-d479qh4z2 PAUL Mccann 383 [place] RE[facility]LL [id number]-r8 07/16 07/16 Family CLONAZEPAM b3-458f-95b /2014 [facility] f-0077x5z95 PAUL Mccann 5ab [place] RE[facility] end19c12-4i 07/16 07/16 Family CLONAZEPAM 70-471f-b99 /2014 [facility] f-y7968k0t9 PAUL Mccann 229 [place] RE[facility] [id number] 07/16 07/16 [facility] CLONAZEPAM f8-2ru3-9r6 /2014 [facility] b-[id number] PAUL Mccann d1a [place] [facility] [id number]-z1 07/16 07/16 [facility] CLONAZEPAM 84-6v03-91m /2014 [facility] 3-ssi6cf536 PAUL Mccann 293 [place] RE[facility]LL [id number] 07/16 07/16 Family TRAZADONE 67-30a6-29s /2014 [facility] d-[id number] PAUL Mccann 80b [place] RE[facility]LL i684y296-1i 07/16 07/16 [facility] TRAZADONE ec-11m8-w1r /2014 [facility] a-x380789n7 PAUL Mccann 19a [place] RE[facility]LL [id number] 07/16 07/16 [facility] TRAZADONE a8-4509-bbc /2014 [facility] 0-983z81x82 PAUL Mccann 21d [place] RE[facility]LL mbc83y0d-9e 07/16 07/16 [facility] TRAZADONE 2c-6m9i-761 /2014 [facility] f-[id number] PAUL Mccann cc4 [place] [facility] o8mg88oi-d8 07/16 07/16 [facility] TRAZADONE 40-3y8w-7h2 /2014 [facility] c-n18e462y4 PAUL Mccann e15 [place] [facility] 0v2hac6s-7z 07/16 07/16 [facility] TRAZADONE e2-07l6-cpg /2014 [facility] a-[id number] PAUL Mccann 147 [place] RE[facility] 00nym8mt-1p 07/16 07/16 [facility] TRAZADONE 87-4770-bfb /2014 [facility] [id number] PAUL Mccann 6dc [place] RE[facility]LL [id number] 07/16 07/16 [facility] TRAZADONE e3-1k95-593 /2014 [facility] 2-49d43m783 PAUL Mccann e1a [place] [facility] [id number]-4e 07/16 07/16 [facility] TRAZADONE 57-43v5-154 /2014 [facility] 4-rho9i48y5 PAUL Mccann 0f6 [place] [facility] [id number] 07/16 07/16 [facility] TRAZADONE 0a-5x68-pwn /2014 [facility] b-77u91nla1 PAUL Mccann f9a [place] RE[facility] 5h4o6z9w-o8 07/16 07/16 [facility] TRAZADONE 12-4dbb-818 /2014 [facility] [id number] PAUL Mccann cf3 [place] [facility] [id number] 07/16 07/16 [facility] Family TRAZADONE f4-6o2s-aj9 /2014 [facility] [id number] PAUL Mccann 30b [place] RE[facility] hq8msn64-08 07/16 07/16 [facility] TRAZADONE 4d-8j6l-z36 /2014 [facility] 2-28bkl5w28 PAUL Mccann 2dd [place] RE[facility] ky0040py-82 07/16 07/16 [facility] TRAZADONE fe-4cbd-af2 /2014 [facility] f-b0031103o PAUL Mccann 4b8 [place] TOXICOLOGY- [id number] 08/08 08/08 [facility] -ADDERALL 36-84q1-sa7 /2014 [facility] 3-u9819bw56 PAUL Mccann 3c9 [place] TOXICOLOGY- [id number]-ct 08/08 08/08 [facility] -ADDERALL 6e-39q0-965 /2014 [facility] 8-7hex9y7e1 PAUL Mccann e04 [place] TOXICOLOGY- [id number]-[id number] 08/08 08/08 [facility] -ADDERALL a7-7g71-m83 /2014 [facility] 0-yj5ab0j4m PAUL Mccann 76d [place] TOXICOLOGY- [id number]-yh 08/08 08/08 [facility] -ADDERALL 26-8u12-186 /2014 [facility] 9-71wft8907 PAUL Mccann 4d9 [place] TOXICOLOGY- 584k3684-p6 08/08 08/08 [facility] -ADDERALL 43-4899-a4b /2014 [facility] b-yeys8p024 PAUL Mccann fc5 [place] TO[facility]IC[facility]- 3a229tv4-w5 08/08 08/08 [facility] -ADDERALL ed-75l5-bi6 /2014 [facility] e-63980u9j3 PAUL Mccann 5ac [facility] TOXICOLOGY- h32f3nhz-q5 08/08 08/08 [facility] -ADDERALL d6-417d-913 /2014 [facility] 2-lg7w1yk9a PAUL Mccann 66d [facility] TOXICOLOGY- [id number] 08/08 08/08 [facility] Family -ADDERALL df-7i93-oyo /2014 [facility] 5-3ex1g2tc7 PAUL Mccann f59 [facility] TOXICOLOGY- [id number]-k2 08/08 08/08 [facility] -ADDERALL 80-0s40-484 /2014 [facility] 8-[id number] PAUL Mccann 391 [facility] TOXICOLOGY- i24535nl-1j 08/08 08/08 [facility] -ADDERALL b8-4ebd-a6d /2014 [facility] 4-v48835nc3 PAUL Mccann ceb [facility] TOXICOLOGY- la27bh3b-24 08/08 08/08 [facility] -ADDERALL 4f-41de-924 /2014 [facility] a-82904833j PAUL Mccann aa5 [facility] TOXICOLOGY- 0571b9ge-2m 08/08 08/08 [facility] -ADDERALL a6-4239-b00 /2014 [facility] d-[id number] PAUL Mccann c85 [facility] TOXICOLOGY- u9y6hhc5-h2 08/08 08/08 [facility] -ADDERALL 56-44fa-a13 /2014 [facility] d-q56k17n16 PAUL Mccann c0b [facility] TOXICOLOGY- dqws2874-b7 08/08 08/08 [facility] -ADDERALL 29-1nm0-9p7 /2014 [facility] b-[id number] PAUL Mccann 532 [facility] TOXICOLOGY- [id number]-28 08/08 08/08 [facility] -ADDERALL 2e-2x25-196 /2014 [facility] c-a688044ev PAUL Mccann 178 [facility] TOXICOLOGY- co38416e-f9 08/08 08/08 [facility] -ADDERALL b1-59g5-jsx /2014 [facility] 1-66vmfor20 H PAUL bai c72 [facility] TOXICOLOGY- o2s2z835-k3 08/08 08/08 Family -ADDERALL a4-9n43-d6k /2014 [facility] d-1ly6r90t7 H PAUL bai 2c6 [facility] Unknown 3sfv4h05-wv 08/19 08/19 S L Family ec-3cc9-441 /2015 [facility] 7-ro6k703mh H bhumika , PAUL c60 [facility] Unknown [id number] 08/19 08/19 S L Family a7-5ld7-wl9 /2015 [facility] b-s3ep8728b PAUL Mccann 77a [facility] Unknown [id number] 08/19 08/19 S L Family 3d-5ee1-716 /2015 [facility] 8-2146jo7j8 H PAUL bai 9fd [facility] Unknown [id number] 08/19 08/19 S L Family 72-4628-be3 /2015 [facility] 7-719com343 H bhumika , PAUL f80 [facility] Unknown [id number] 08/19 08/19 S L Family f2-40g1-n5l /2015 [facility] 8-6b65q333o PAUL Mccann c0d [facility] Unknown [id number] 08/19 08/19 S L Family e3-78m8-z4f /2015 [facility] 4-70f1zd23f PAUL Mccann 615 [facility] Unknown [id number] 08/19 08/19 S L Family bc-4418-b87 /2015 [facility] 5-90485t135 PAUL Mccann 577 [facility] Unknown [id number] 08/19 08/19 S L Family 3f-44db-a50 /2015 [facility] f-[id number] PAUL Mccann e2e [facility] Unknown [id number] 08/19 08/19 S L Family 42-4ecb-a49 /2015 [facility] 3-u80ip6yk2 H bhumika , PAUL 955 [place] Unknown [id number] 08/19 08/19 S L Family 34-3it6-878 /2015 [facility] 2-e54q4n788 H bhumika , PAUL c73 [place] Unknown [id number] 08/19 08/19 S L Family 80-3r24-2f2 /2015 [facility] a-i97133n43 H bhumika , [place] 8d7 [place] [facility] [id number] 08/19 08/19 S L Family 4c-6t90-5ow /2015 [facility] 3-2qog50vk3 Dominic bai , PAUL 594 [place] Unknown [id number] 08/19 08/19 S L Family fb-4k1s-cz3 [facility] c-7027xb6q0 H PAUL bai 708 [place] Unknown [id number] 08/19 08/19 S L Family 6c-4699-b8f /2015 [facility] 7-1nw11fd13 H PAUL bai 02d [place] [facility] [id number] 08/19 08/19 S L Family 2e-70c3-fa7 /2015 [facility] 6-q3lzfuzg9 H PAUL bai ac8 [place] Unknown [id number] 08/19 08/19 S L Family 7a-9w28-3al /2015 [facility] 9-[id number] Dominic bai [place] 5f3 [place] Unknown [id number] 08/19 08/19 S L Family 77-9m13-245 /2015 [facility] f-[id number] PAUL Mccann 8ae [place] REFILL REQ- [id number]-m3 11/07 11/07 Family CLONAZEPAM 68-81x4-zbr /2015 [facility] 1-i51usw13t PAUL Mccann e4e [place] REFILL REQ- [id number]-60 11/07 11/07 [facility] CLONAZEPAM 1e-4bfe-a52 /2015 [facility] 5-4c868fn3q PAUL Mccann e71 [place] REFI[facility] REQ- [id number]-qs 11/07 11/07 [facility] Family CLONAZEPAM ae-2p29-1ed /2015 [facility] d-[id number] PAUL Mccann 307 [place] REFI[facility] REQ- [id number]-95 11/07 11/07 SL Family CLONAZEPAM 09-6k61-r27 /2015 [facility] 1-590953yk9 PAUL Mccann 60b [place] REFILL REQ- [id number] 11/07 11/07 [facility] Family CLONAZEPAM 2a-4452-acc /2015 [facility] [id number] PAUL Mccann c27 [place] REFILL REQ- [id number] 11/07 11/07 [facility] CLONAZEPAM 84-40cc-8bc /2015 [facility] 1-3j49vmbms PAUL Mccann ebe [place] REFILL REQ- [id number]-9u 11/07 11/07 SL Family CLONAZEPAM 76-0xh8-i55 /2015 [facility] 2-18z8g8w8t PAUL Mccann 729 [place] REFILL REQ- [id number]-t2 11/07 11/07 SL Family CLONAZEPAM b0-00m7-1pn /2015 [facility] 2-b226623hh PAUL Mccann dc7 [place] REFILL REQ- [id number] 11/07 11/07 [facility] Family CLONAZEPAM 9a-482f-bb6 /2015 [facility] 7-o1305v5a2 PAUL Mccann a20 [place] REFILL REQ- [id number]-64 11/07 11/07 [facility] Family CLONAZEPAM f6-2l30-xiw /2015 [facility] 8-[id number] PAUL Mccann 2e8 [place] REFILL REQ- [id number]-93 11/07 11/07 [facility] Family CLONAZEPAM ac-493d-a2d /2015 [facility] f-9837zfy75 PAUL Mccann 3d4 [place] REFILL REQ- [id number]-rl 11/07 11/07 SL Family CLONAZEPAM 76-87n6-6z3 /2015 [facility] 6-46wt6h878 PAUL Mccann 6e4 [place] REFILL REQ- [id number]-11 11/07 11/07 SL Family CLONAZEPAM ee-2u09-1gd /2015 [facility] 8-1nak27r94 PAUL Mccann 47a [place] REFILL REQ- [id number] 11/07 11/07 SL Family CLONAZEPAM 4f-412b-8a6 /2015 [facility] d-7u86z60y0 PAUL Mccann 5d7 [place] REFILL REQ- [id number] 11/07 11/07 SL Family CLONAZEPAM e1-4715-b10 /2015 [facility] 3-453i31z6s PAUL Mccann 277 [place] REFILL REQ- [id number]-65 11/07 11/07 SL Family CLONAZEPAM 4c-416b-bd7 /2015 [facility] 0-f450q823g PAUL Mccann 38c [place] REFILL REQ- [id number] 11/08 11/08 SL Family TRAZODONE 1c-417a-8b8 [facility] 7-r09315m5r PAUL Mccann 727 [place] REFILL REQ- [id number]-61 11/08 11/08 SL Family TRAZODONE 4d-4254-843 /2015 [facility] 1-h39k43wf3 PAUL Mccann ed5 [place] REFILL REQ- 5f25f9i1-ju 11/08 11/08 SL Family TRAZODONE e2-4ede-a24 /2015 [facility] 1-w096n2997 PAUL Mccann c51 [place] REFILL REQ- [id number] 11/08 11/08 SL Family TRAZODONE 5e-2f18-3i8 /2015 [facility] c-9jm61c237 H ealth , [place] 6c7 [place] REFI[facility] REQ- w429d3pz-25 11/08 11/08 SL Family TRAZODONE dd-0pu6-5rq /2015 [facility] a-e9f5dxyn0 PAUL Mccann 37c [place] REFILL REQ- pcnd6x97-93 11/08 11/08 SL Family TRAZODONE 0c-4466-8cd /2015 [facility] c-z3ncwu7z9 Dominic bai PA 604 [place] REFILL REQ- 3145it7f-j6 11/08 11/08 Family TRAZODONE b0-4644-be2 /2015 [facility] e-9i9s210ry PAUL Mccann 330 [place] REFILL REQ- f363mi7n-67 11/08 11/08 Family TRAZODONE 1f-6ao2-0ka /2015 [facility] 5-q39927v29 Dominic bai , [place] f85 [place] REFILL REQ- [id number] 11/08 11/08 Family TRAZODONE 5f-7n38-e9z /2015 [facility] 2-9vb48i6m5 Dominic bai PA 118 [place] REFILL REQ- [id number]-w0 11/08 11/08 Family TRAZODONE 16-4405-a1b /2015 [facility] [id number] PAUL Mccann c34 [place] REFILL REQ- [id number] 11/08 11/08 Family TRAZODONE b0-87e3-ch2 /2015 [facility] 2-kunl097b2 Dominic bai PA 920 [place] REFILL REQ- [id number]-ws 11/08 11/08 Family TRAZODONE 86-0q5m-4r7 /2015 [facility] 9-6t3794i76 Dominic bai PA f36 [place] REFILL REQ- [id number]-ql 11/08 11/08 Family TRAZODONE ff-63v3-7af /2015 [facility] 7-[id number] H ealth , [place] f84 [place] REFILL REQ- [id number] 11/08 11/08 SL Family TRAZODONE 28-62f4-16z /2015 [facility] b-[id number] PAUL Mccann a2e [place] REFILL REQ- [id number]-68 11/08 11/08 SL Family JENN d0-4249-bc5 /2015 [facility] d-0c3gafivf PAUL Mccann da1 [facility] TOX [id number] 12/05 12/05 [facility] ab-4a5q-rr4 /2015 [facility] [id number] PAUL Mccann 74d [place] TOX [id number] 12/05 12/05 [facility] c0-4667-b15 /2015 [facility] d-[id number] PAUL Mccann 787 [facility] TOX 8m0q7kw6-gx 12/05 12/05 [facility] 7d-4en9-9y7 /2015 [facility] 4-2268xp762 PAUL Mccann ac1 [place] TOX [id number] 12/05 12/05 [facility] d7-4175-a4c /2015 [facility] a-1mj6sl12l PAUL Mccann bcf [place] TOX [id number] 12/05 12/05 [facility] Family 4a-3pw1-y52 /2015 [facility] 8-j750v62c0 PAUL Mccann 8c7 [place] TOX [id number] 12/05 12/05 SL Family 5e-04a6-vo9 /2015 [facility] 7-k0rvevw55 PAUL Mccann ca6 [place] TOX ifz9y78b-2d 12/05 12/05 [facility] d9-40fc-928 /2015 [facility] 6-32r35ge72 PAUL Mccann 127 [place] TOX [id number] 12/05 12/05 [facility] 74-4daa-a3c /2015 [facility] c-18wt6jjqz PAUL Mccann 255 [place] TOX [id number]-sx 12/05 12/05 SL Family 2e-47cc-b56 /2015 [facility] c-92hyqw70i H PAUL bai 118 [place] TOX [id number] 12/05 12/05 SL Family 23-495a-bf /2015 [facility] 3-x8023k3n4 H PAUL bai 91b [place] TOX [id number]-36 12/05 12/05 SL Family 1f-0p13-2k4 /2015 [facility] 9-i9w7te998 H PAUL bai db6 [facility] Unknown [id number] 12/29 12/29 S L Family 26-451f-ac8 [facility] e-9k5i8u4q7 H PAUL bai de5 [facility] Unknown [id number] 12/29 12/29 S L Family 2a-3km3-6h5 /2015 [facility] 7-e75583y97 PAUL Mccnan efb [facility] Unknown [id number] 12/29 12/29 S L Family 59-4143-a6 /2015 [facility] 5-e4ya446c9 H PAUL bai 8ba [facility] Unknown [id number] 12/29 12/29 S L Family fc-438f-a2a /2015 [facility] 2-754971336 H PAUL bai ad7 [facility] [id number] 12/29 12/29 S L Family 65-1va2-k09 /2015 [facility] 8-[id number] H PAUL bai 4bb [place] Unknown [id number] 12/29 12/29 S L Family 8f-10b4-95r /2015 [facility] c-8g81o3488 H PAUL bai 2f5 [place] Unknown [id number] 12/29 12/29 S L Family fc-2rj0-o5s /2015 [facility] 6-66g605j18 PAUL Mccann ddb [place] Unknown [id number] 12/29 12/29 S L Family 50-44df-97f /2015 [facility] f-3555j1845 Dominic bai , [place] 53e [facility] Unknown [id number] 12/29 12/29 S L Family 39-426e-963 /2015 [facility] d-230g7n3g8 Dominic bai , [place] 9b9 [facility] Unknown [id number] 12/29 12/29 S L Family 00-4209-a08 /2015 [facility] b-8257tuu05 H bhumika , [place] 1a1 [facility] Unknown [id number] 12/29 12/29 S L Family 7d-4123-be3 /2015 [facility] 3-p610dy409 Dominic bai , [place] 099 [facility] Unknown [id number] 12/29 12/29 S L Family a5-408a-90a /2015 [facility] 5-757426id3 Dominic bai , [place] d1e [facility] Unknown [id number] 12/29 12/29 S L Family 67-437c-b39 /2015 [facility] [id number] Dominic bai , [place] e70 [facility] Unknown [id number] 12/29 12/29 S L Family b7-8c57-760 /2015 [facility] 6-0bh2017ve Dominic bai , [place] 43f [place] REFILL REQ- [id number] 01/08 01/08 Family CLONAZEPAM d2-7m19-37h /2015 [facility] 6-7r8t12n2w PAUL Mccann 1e8 [place] REFILL REQ- [id number]-25 01/08 01/08 Family CLONAZEPAM 05-452e-8ed /2015 [facility] d-s2a972ykf Dominic bai PA b1f [place] REFILL REQ- [id number]-he 01/08 01/08 SL Family CLONAZEPAM a6-4611-815 /2015 [facility] [id number] Dominic bai PA 61f [place] REFILL REQ- 95ydw13n-38 01/08 01/08 Family CLONAZEPAM 32-4608-9c0 /2015 [facility] 9-u39vh7691 PAUL Mccann 3bd [place] REFILL REQ- [id number] 01/08 01/08 Family CLONAZEPAM 5d-4059-ba1 /2015 [facility] d-[id number] Dominic bai PA 38a [place] REFILL REQ- [id number] 01/08 01/08 SL Family CLONAZEPAM 97-40bc-999 /2015 [facility] 8-3x6ig5gry PAUL Mccann 596 [place] REFILL REQ- [id number] 01/08 01/08 Family CLONAZEPAM ba-473a-896 /2015 [facility] 1-y852744bn PAUL Mccann 149 [place] REFILL REQ- [id number] 01/08 01/08 Family CYCLOBENZAP 78-46ab-ab5 /2015 [facility] RINE 0-3389dte15 Dominic bai PA 96d [place] REFILL REQ- [id number]-d1 01/08 01/08 Family CYCLOBENZAP c9-4780-8ee /2015 [facility] 0-ws51zlv9t PAUL Mccann c23 [place] REFILL REQ- [id number]-y0 01/08 01/08 Family CYCLOBENZAP 62-4gy6-d68 /2015 [facility] 1-tm20izg15 Dominic bai PA 836 [place] REFILL REQ- [id number] 01/08 01/08 Family CYCLOBENZAP ad-9k7x-240 /2015 [facility] 4-6389d5gj9 Dominic bai PA 2b7 [place] REFILL REQ- [id number] 01/08 01/08 Family CYCLOBENZAP 72-6p5f-9ou /2015 [facility] f-[id number] Dominic bai PA 6cf [facility] REFILL REQ- [id number] 01/08 01/08 Family CYCLOBENZAP c2-469a-a05 /2015 [facility] [id number] PAUL Mccann 67f [place] REFILL REQ- [id number]-9x 01/08 01/08 SL Family CYCLOBENZAP 3e-11k0-h7e /2015 [facility] 0-eh1j9m9g1 PAUL Mccann 71c [place] REFILL REQ- [id number] 01/08 01/08 SL Family CLONAZEPAM 28-41v2-452 /2015 [facility] e-gk0457n1y PAUL Mccann 720 [place] REFILL REQ- [id number] 01/08 01/08 SL Family CLONAZEPAM 55-4fca-af1 /2015 [facility] a-2997tya05 PAUL Mccann 5d2 [place] REFILL REQ- [id number]-hj 01/08 01/08 SL Family CLONAZEPAM 24-2k84-qy0 /2015 [facility] 6-7alp5hq78 PAUL Mccann 38a [place] REFILL REQ- [id number] 01/08 01/08 SL Family CLONAZEPAM 52-1te3-z7v /2015 [facility] e-7qk59sq46 PAUL Mccann c82 [place] REFILL REQ- [id number]-w0 01/08 01/08 SL Family CLONAZEPAM 6d-7dz1-cm8 /2015 [facility] c-[id number] PAUL Mccann 73d [place] REFILL REQ- [id number]-pk 01/08 01/08 SL Family CLONAZEPAM 26-46db-930 /2015 [facility] 4-u52bdbe66 PAUL Mccann cf8 [facility] REFILL REQ- [id number]-b2 01/08 01/08 Family CYCLOBENZAP 7f-442c-980 /2015 [facility] 9-f296is5t8 PAUL Mccann 465 [facility] REFILL REQ- [id number] 01/08 01/08 Family CYCLOBENZAP [id number] /2015 [facility] RINE [id number] PAUL Mccann [address] [place] REFILL REQ- [id number] 01/08 01/08 [facility] CYCLOBENZAP [id number] /2015 [facility] RINE [id number] H bhumika , PAUL e27 [place] REFILL REQ- [id number] 01/08 01/08 [facility] CYCLOBENZAP bd-[id number] /2015 [facility] RINE a-[id number] H PAUL bai [address] [place] REFILL REQ- [id number] 01/08 01/08 [facility] CYCLOBENZAP bf-[id number]-b7b /2015 [facility] RINE [id number] H PAUL bai 7d8 [place] REFILL REQ- [id number] 01/08 01/08 [facility] CYCLOBENZAP 8a-89p4-h0d /2015 [facility] RINE d-[id number] H bhumika , [place] b64 [facility] ADD ON TOX [id number] 03/24 03/24 [facility] PER [id number]-[id number] /2015 [facility] [id number] [facility] , [place] d3c [facility] ADD ON TOX [id number] 03/24 03/24 [facility] PER [id number] /2015 [facility] [id number] [facility] , [place] 3c7 [facility] ADD ON TOX [id number] 03/24 03/24 [facility] PER [id number] /2015 [facility] e-[id number] Health [place] 65f [facility] ADD ON TOX [id number] 03/24 03/24 [facility] PER [id number] /2015 [facility] c-[id number] [facility] , [place] 478 [facility] ADD ON TOX [id number] 03/24 03/24 [facility] PER [id number] /2015 [facility] [id number] [place] , [place] ad9 [facility] ADD ON TOX [id number] 03/24 03/24 [facility] PER [id number] /2015 [facility] 5-[id number] Chavez [address] [place] ADD ON TOX [id number] 03/24 03/[address] [id number] /2015 [facility] [id number] PAUL Wadsworth [address] [place] REFILL REQ- [id number] 03/24 03/24 [facility] TRAZODONE 89-99n9-m86 /2015 Fa [facility] d-[id number] PAUL Mccann d01 [place] REFILL REQ- [id number] 03/24 03/24 [facility] TRAZODONE [id number]-[id number] /2015 Fa [facility] [id number] PAUL Mccann ee9 [place] REFILL REQ- [id number] 03/24 03/24 [facility] TRAZODONE [id number] /2015 Fa [facility] b-[id number] PAUL Mccann cf3 [place] REFILL REQ- [id number] 03/24 03/24 Family TRAZODONE [id number]-i55 /2015 Fa [facility] [id number] PAUL Mccann fef [place] REFILL REQ- [id number] 03/24 03/24 [facility] CLONAZEPAM 88-4613-a8a /2015 F [facility] 6-[id number] PAUL Mccann [address] [place] REFILL REQ- [id number] 03/24 03/24 [facility] CLONAZEPAM b7-486f-a56 /2015 F [facility] e-[id number] PAUL Mccann [address] [place] REFILL REQ- [id number] 03/24 03/24 [facility] CLONAZEPAM 57-4944-937 /2015 F [facility] e-[id number] PAUL Mccann da1 [place] REFILL REQ- [id number] 03/24 03/24 Family CLONAZEPAM 9b-[id number]-[id number] /2015 F [facility] 5-[id number] PAUL Mccann ad6 [place] REFILL REQ- [id number] 03/24 03/24 [facility] TRAZODONE cc-[id number]-g05 /2015 Fa [facility] d-[id number] PAUL Mccann [address] [place] REFILL REQ- [id number] 03/24 03/24 [facility] TRAZODONE [id number]-[id number] /2015 Fa [facility] e-[id number] PAUL Mccann ad2 [place] REFILL REQ- [id number] 03/24 03/24 [facility] TRAZODONE [id number]-p92 /2015 Fa [facility] 9-[id number] PAUL Mccann [address] [place] REFILL REQ- [id number] 03/24 03/24 [facility] TRAZODONE 71-4363-a9f /2015 Fa [facility] [id number] PAUL Mccann c38 [place] REFILL REQ- [id number] 03/24 03/24 [facility] TRAZODONE [id number]-952 /2015 Fa [facility] 6-[id number] PAUL Mccann [address] [place] REFILL REQ- [id number] 03/24 03/24 [facility] TRAZODONE [id number] /2015 Fa [facility] [id number] PAUL Mccann ce0 [place] REFILL REQ- [id number] 03/24 03/24 [facility] CLONAZEPAM e2-7my2-mgr /2015 F [facility] b-[id number] PAUL Mccann 8e6 [place] REFILL REQ- [id number] 03/24 03/24 [facility] CLONAZEPAM [id number]-[id number]-[id number] /2015 F [facility] [id number] PAUL Mccann c[address] [place] REFILL REQ- [id number] 03/24 03/24 [facility] CLONAZEPAM 53-4390-bd5 /2015 F [facility] 5-[id number] PAUL Mccann c8b [place] REFILL REQ- [id number] 03/24 03/24 [facility] CLONAZEPAM [id number] /2015 [facility] [id number] PAUL Mccann e0a [place] REFILL REQ- [id number] 03/24 03/24 [facility] CLONAZEPAM [id number] /2015 [facility] c-[id number] PAUL Mccann [address] [place] REFILL REQ- [id number] 03/24 03/24 [facility] CLONAZEPAM [id number] /2015 [facility] [id number] PAUL Mccann [address] [place] Unknown [id number] 04/21 04/21 S L [facility] [id number] [facility] [id number] PAUL Mccann cac [place] Unknown [id number] 04/21 04/21 S L Family [id number] /2015 [facility] [id number] PAUL Mccann fee [place] Unknown [id number] 04/21 04/21 S L Family [id number] [facility] [id number] PAUL Mccann [address] [place] Unknown [id number] 04/21 04/21 S L Family [id number] /2015 [facility] [id number] PAUL Mccann c54 [place] Unknown [id number] 04/21 04/21 S L Family [id number] /2015 [facility] [id number] PAUL Mccann b73 [place] Unknown [id number] 04/21 04/21 S L Family [id number] [facility] [id number] PAUL Mccann af5 [place] Unknown [id number] 04/21 04/21 S L Family [id number] /2015 [facility] [id number] PAUL Mccann fe6 [place] Unknown [id number] 04/21 04/21 S Arianna Family [id number] /2015 [facility] [id number] PAUL Mccann [address] [place] REFILL REQ- [id number] 06/17 06/17 SL Family CLONAZEPAM [id number] /2015 [facility]CLOB[facility] [id number] Health , PAUL MASTERSON [address] [place] REFILL REQ- [id number] 06/17 06/17 SL Family CLONAZEPAM [id number] /2015 [facility]CL[facility] [id number] Health , PAUL MASTERSON 3bd [place] REFILL REQ- [id number] 06/17 06/17 Family CLONAZEPAM [id number] /2015 [facility]CL[facility] [id number] Health , PAUL MASTERSON [address] [place] REFILL REQ- [id number] 06/17 06/17 Family CLONAZEPAM [id number] /2015 [facility]CL[facility] [id number] Health , PAUL MASTERSON [address] [place] REFILL REQ- [id number] 06/17 06/17 Family CLONAZEPAM [id number] /2015 [facility]CL[facility] [id number] Health , PAUL MASTERSON 6af [place] REFILL REQ- [id number] 06/17 06/17 Family CLONAZEPAM [id number] /2015 [facility] [id number] Health , PAUL MASTERSON [address] [place] REFILL REQ- [id number] 06/30 06/30 Family TRAZODONE [id number] /2015 [facility] [id number] PAUL Mccann [address] [place] REFILL REQ- [id number] 06/30 06/30 Family TRAZODONE [id number] /2015 [facility] [id number] PAUL Mccann a48 [place] REFILL REQ- [id number] 06/30 06/30 SL Family TRAZODONE [id number] /2015 [facility] [id number] PAUL Mccann 7a9 [place] REFILL REQ- [id number] 06/30 06/30 SL Family TRAZODONE [id number] /2015 [facility] [id number] PAUL Mccann [address] [place] REFILL REQ- [id number] 06/30 06/30 SL Family TRAZODONE [id number] /2015 [facility] [id number] PAUL Mccann 4f4 [place] medication [id number] 07/17 07/17 SL Family [id number] /2015 [facility] [id number] PAUL Mccann b4d [place] medication [id number] 07/17 07/17 SL Family [id number] /2015 [facility] [id number] PAUL Mccann a59 [place] medication [id number] 07/17 07/17 SL Family [id number] /2015 [facility] [id number] PAUL Mccann [address] [place] medication [id number] 07/17 07/17 SL Family [id number] /2015 [facility] [id number] [facility] [id number] 09/22 09/22 S L Family [id number] /2016 [facility] [id number] PAUL Mccann cd2 [place] Unknown [id number] 09/22 09/22 S L Family [id number] /2016 [facility] [id number] PAUL Mccann 55f [place] Unknown [id number] 09/22 09/22 S L Family [id number] /2016 [facility] [id number] PAUL Mccann 4ea [place] REFILL REQ- [id number] 10/06 10/06 SL Family CLONAZEPAM/ [id number] /2016 [facility] CYCLOBENZAP [id number] Health , [place] 0a4 [place] REFILL REQ- [id number] 10/06 10/06 Family CLONAZEPAM/ [id number] /2016 [facility] CYCLOBENZAP [id number] Ananth , PAUL PORTER [address] [place] REFILL REQ- [id number] 10/07 10/07 Family CLONAZEPAM/ [id number] /2016 [facility] CYCLOBENZAP [id number] Health , PAUL PORTER ffb Procedures Procedure Code Date Perfomer Comments Source Miscellaneous [id number] 1Brain bleed [facility] [place] <sup>1</sup> Miscellaneous [id number] 2C-spine [facility] [place] <sup>2</sup> Miscellaneous 164391645 3Broken neck [place] <sup>3</sup> Assessment and Plan No Data Provided for This Section Plan of Care No Data Provided for This Section Social History Social History Date Source Social History ElementQualifiersDate Reported 08/22/2016 [facility] Pets: . 3DOGS, 1 CAT Aug 22, 2016 Marital Status: . Aug 22, 2016 Caffeine: yes. COFFEE 1-2 CUPS/DAY, SODA 4-5CANS/DAY Aug 22, 2016 Exercise: no. none Aug 22, 2016 Drug use: no. Aug 22, 2016 Tobacco Use . Status: Current Smoker 1/2 pack a day VERIFIED BY LENA 08/10Aug 22, 2016 Alcohol: no. 4 DRINKS A YEAR Aug 22, 2016 Travel ouside [place]: no. none Aug 22, 2016 Occupation: . disabled Aug 22, 2016 Social History ElementQualifiersDate Reported 09/04/2014 [facility] Tobacco Use: . Status former smoker Sep 04, 2014 Drug Use: . No Sep 04, 2014 Alcohol: . Yes, Rarely Sep 04, 2014 Family History No Data Provided for This Section Advance Directives No Data Provided for This Section Functional Status No Data Provided for This Section
--- OUTSIDE RECORDS SUMMARY | 2020-02-06 18:06 | XMS REPORT ---
:1975 Author Organization eClinicalWorks Care Team Providers Name Role Phone CHIRAG NAIDU Provider Role Unavailable Allergies, Adverse Reactions, Alerts Substance Reaction Event Type N.K.D.A. Info Not Available Non Drug Allergy Problems Problem Type Condition Code Onset Dates Condition Statu s Assessment Acute streptococcal pharyngitis J02.0 Active Problem Thyromegaly E01.0 Active Problem Anxiety F41.9 Active Problem Thyroid nodule E04.1 Active Problem Attention deficit disorder F90.0 A ctive Problem Depression, unspecified depression F32.9 Active type Problem Chronic pain disorder G89.4 Active Medications Medication Code Code Instructions Start End Status Dosage System Date Date cefdinir ND 90275978113 300 mg orally Active 1 cap (s) every 12 hours clonazepam [facility] 47606261595 1 mg Active TAKE 1 TABLET BY MOUTH TWICE A DAY Medrol Dosepak NDC 0 varying orally Active As directed Risperdal ND 77311952002 1 mg orally bid Active 1 tab Vital Signs Date/Time: Aug 25, 2019 BMI 25.01 Index Height 66 in Weight 155 lbs Pulse 58 /min Blood Pressure Diastolic 80 mm Hg Blood Pressure Systolic 126 mm Hg Temperature 97.7 F Results No Known Results Summary Purpose eClinicalWorks Submission
[2020-02-06] MEDS ORDERED: DIPHENHYDRAMINE 50 MG/ML VIAL ONE (19:38)
[2020-02-06] MEDS ORDERED: METHYLPREDNISOLONE 125 MG INJ ONE (19:38)
[2020-02-06] MEDS ORDERED: FAMOTIDINE 20 MG/2 ML VIAL IV ONE (19:38)
[2020-02-06] MEDS ORDERED: EPINEPHRINE/PF 1 MG/ML AMP ONE (20:34)
--- NOTE | 2020-02-06 22:23 | EDPHYS ---
Physician Documentation [facility] Name: Lisseth Powell Age: 44 yrs Sex: Female : 1975 Arrival Date: 02/06/2020 Time: 18:03 Bed 24 Private MD: ED Physician Delbert Jean HPI: 02/05 20:56 This 44 yrs old Female presents to ER via Ambulatory with complaints of Rash. jr8 20:56 The patient's rash thought to be caused by an unknown cause. The rash is located on the jr8 back, chest and abdomen. The rash can be described as urticarial. Onset: The symptoms/episode began/occurred acutely, 3 day(s) ago, and became worse. Associated signs and symptoms: Pertinent positives: burning sensation, itching. Severity of symptoms: At their worst the symptoms were moderate in the emergency department the symptoms are unchanged. The patient has not experienced similar symptoms in the past. The patient has not recently seen a physician. Patient stated that she does not know how it started. Denies new foods, medications, lotions, detergents etc.... Historical: - Allergies: 18:04 No Known Drug Allergies; sv - PMHx: 18:04 Bipolar disorder; sv - PSHx: 18:04 brain surgery; c-spine fusion; hand surgery; ankle surgery; sv - Immunization history:: Adult Immunizations up to date. - Social history:: Smoking status: Patient denies any tobacco usage or history of. ROS: 20:56 Eyes: Negative for injury, pain, redness, and discharge, ENT: Negative for injury, jr8 pain, and discharge, Neck: Negative for injury, pain, and swelling, Cardiovascular: Negative for chest pain, palpitations, and edema, Respiratory: Negative for shortness of breath, cough, wheezing, and pleuritic chest pain, Abdomen/GI: Negative for abdominal pain, nausea, vomiting, diarrhea, and constipation, Back: Negative for injury and pain, MS/Extremity: Negative for injury and deformity, Neuro: Negative for headache, weakness, numbness, tingling, and seizure. 20:56 Skin: Positive for rash, diffusely. Exam: 20:56 Eyes: Pupils equal round and reactive to light, extra-ocular motions intact. Lids and jr8 lashes normal. Conjunctiva and sclera are non-icteric and not injected. Cornea within normal limits. Periorbital areas with no swelling, redness, or edema. ENT: Nares patent. No nasal discharge, no septal abnormalities noted. Tympanic membranes are normal and external auditory canals are clear. Oropharynx with no redness, swelling, or masses, exudates, or evidence of obstruction, uvula midline. Mucous membranes moist. Neck: Trachea midline, no thyromegaly or masses palpated, and no cervical lymphadenopathy. Supple, full range of motion without nuchal rigidity, or vertebral point tenderness. No Meningismus. Cardiovascular: Regular rate and rhythm with a normal S1 and S2. No gallops, murmurs, or rubs. Normal PMI, no JVD. No pulse deficits. Respiratory: Lungs have equal breath sounds bilaterally, clear to auscultation and percussion. No rales, rhonchi or wheezes noted. No increased work of breathing, no retractions or nasal flaring. Abdomen/GI: Soft, non-tender, with normal bowel sounds. No distension or tympany. No guarding or rebound. No evidence of tenderness throughout. Back: No spinal tenderness. No costovertebral tenderness. Full range of motion. MS/ Extremity: Pulses equal, no cyanosis. Neurovascular intact. Full, normal range of motion. Neuro: Awake and alert, GCS 15, oriented to person, place, time, and situation. Cranial nerves II-XII grossly intact. Motor strength 5/5 in all extremities. Sensory grossly intact. Cerebellar exam normal. Normal gait. 20:56 Skin: rash a moderate rash is noted, rash can be described as urticarial, on the back, chest and abdomen. Vital Signs: 18:06 BP 126 / 101; Pulse 84; Resp 16; Temp 97.8; Pulse Ox 98% ; Weight 65.77 kg; Height 5 sv ft. 8 in. (172.72 cm); 20:00 BP 148 / 97; Pulse 73; Resp 18; Pulse Ox 100% on R/A; wh 21:00 BP 134 / 90; Pulse 99; Resp 18; Pulse Ox 100% on R/A; wh 22:30 BP 130 / 92; Pulse 96; Resp 16; Pulse Ox 96% on R/A; jb4 18:06 Body Mass Index 22.05 (65.77 kg, 172.72 cm) sv MDM: 18:18 Patient medically screened. denny 22:20 Data reviewed: vital signs, nurses notes, and as a result, I will discharge patient. jr8 Data interpreted: Pulse oximetry: on room air is 100 %. Interpretation: normal. Counseling: I had a detailed discussion with the patient and/or guardian regarding: the historical points, exam findings, and any diagnostic results supporting the discharge/admit diagnosis, the need for outpatient follow up, a family practitioner, to return to the emergency department if symptoms worsen or persist or if there are any questions or concerns that arise at home. Response to treatment: the patient's symptoms have markedly improved after treatment. ED course: Patient doing much better. Rash markedly decreased. Pain and itching much better. VS stable. No adverse affects from epinephrine. Safe to go home at this time with close return precautions . 02/05 18:51 Order name: IV; Complete Time: 19:26 jr8 02/05 20:23 Order name: Cardiac monitoring; Complete Time: 20:39 jr8 Administered Medications: 19:32 Drug: Benadryl 50 mg Route: IVP; Site: right antecubital; 21:36 Follow up: Response: No adverse reaction; No change in condition 19:34 Drug: Pepcid 20 mg Route: IVP; Site: right antecubital; 21:36 Follow up: Response: No adverse reaction; No change in condition 19:36 Drug: SOLU-Medrol 125 mg Route: IVP; Site: right antecubital; 21:36 Follow up: Response: No adverse reaction 20:39 Drug: EPINEPHrine 1mg/mL 1:1,000 0.5 mg Route: IM; Site: left deltoid; 21:37 Follow up: Response: No adverse reaction; Marked relief of symptoms 21:21 Drug: EPINEPHrine 1mg/mL 1:1,000 0.5 mg Route: IM; Site: right deltoid; 22:45 Follow up: Response: No adverse reaction; Marked relief of symptoms jb4 Disposition: 02/06 13:22 Co-signature as Attending Physician, Delbert Jean MD I agree with the assessment and [facility] plan of care. Disposition: 02/06/20 22:22 Discharged to Home. Impression: Anaphylactic Reaction Unspecified . - Condition is Stable. - Discharge Instructions: Anaphylactic Reaction, Adult. - Prescriptions for Pepcid 20 mg Oral Tablet - take 1 tablet by ORAL route every 12 hours for 7 days; 14 tablet. Prednisone 20 mg Oral Tablet - take 3 tablets by ORAL route once daily for 7 days; 21 tablet. Hydroxyzine HCl 25 mg Oral Tablet - take 1 tablet by ORAL route every 6 hours As needed; 30 tablet. - Medication Reconciliation Form, Thank You Letter, Antibiotic Education, Prescription Opioid Use form. - Follow up: Private Physician; When: 1 - 2 days; Reason: Recheck today's complaints, Continuance of care, Re-evaluation by your physician. - Problem is new. - Symptoms have improved. Signatures: Cathie Thomason, RN RN Delbert Butler MD MD cha Roszak, Josh, PA PA jr8 Devon Jaramillo RN RN jb4 Dominik Sal Lynsay, RN RN ll1 Corrections: (The following items were deleted from the chart) 02/05 22:58 22:22 02/06/2020 22:22 Discharged to Home. Impression: Anaphylactic Reaction jb4 Unspecified . Condition is Stable. Forms are Medication Reconciliation Form, Thank You Letter, Antibiotic Education, Prescription Opioid Use. Follow up: Private Physician; When: 1 - 2 days; Reason: Recheck today's complaints, Continuance of care, Re-evaluation by your physician. Problem is new. Symptoms have improved. jr8
--- NOTE | 2020-02-06 22:23 | ER ---
Nurse's Notes [facility] Name: Lisseth Powell Age: 44 yrs Sex: Female : 1975 Arrival Date: 02/06/2020 Time: 18:03 Bed 24 Private MD: Diagnosis: Anaphylactic Reaction Unspecified Presentation: 02/05 18:04 Chief complaint: Patient states: rash x 3 days. Coronavirus screen: Proceed with normal sv triage. Patient denies a cough. Patient denies shortness of breath or difficulty breathing. Patient denies measured and/or subjective temperature greater than 100.4F prior to today's visit. Patient denies travel on a cruise ship or to a country the [facility] currently lists as an affected area. Patient denies contact with known and/or suspected case of COVID-19. Ebola Screen: No symptoms or risks identified at this time. Risk Assessment: Do you want to hurt yourself or someone else? Patient reports no desire to harm self or others. Onset of symptoms was February 03, 2020. 18:04 Method Of Arrival: Ambulatory sv 18:04 Acuity: JULIET 3 sv 18:06 Initial Sepsis Screen: Does the patient meet any 2 criteria? No. Patient's initial sv sepsis screen is negative. Does the patient have a suspected source of infection? No. Patient's initial sepsis screen is negative. Triage Assessment: 18:05 General: Appears in no apparent distress. uncomfortable, Behavior is cooperative, sv appropriate for age, anxious. Neuro: Level of Consciousness is awake, alert, obeys commands, Oriented to person, place, time, situation, Gait is steady. Respiratory: Respiratory effort is even, unlabored. Derm: Rash noted that is itchy, red, raised, on back, chest and abdomen. Historical: - Allergies: 18:04 No Known Drug Allergies; sv - PMHx: 18:04 Bipolar disorder; sv - PSHx: 18:04 brain surgery; c-spine fusion; hand surgery; ankle surgery; sv - Immunization history:: Adult Immunizations up to date. - Social history:: Smoking status: Patient denies any tobacco usage or history of. Screenin:22 Abuse screen: Denies threats or abuse. Nutritional screening: No deficits noted. ll1 Tuberculosis screening: No symptoms or risk factors identified. Fall Risk None identified. IV access (20 points). Total Graf Fall Scale indicates No Risk (0-24 pts). Assessment: 19:10 General: Appears distressed, Behavior is calm, cooperative. Pain: Complains of pain in ll1 all over Quality of pain is described as burning, Pain began 2-3 days ago. Neuro: No deficits noted. Cardiovascular: No deficits noted. Respiratory: No deficits noted. Derm: Rash noted that is itchy, red, raised, Reports rash and hived to body for 3 days, worse on trunk area. + itching and burning. 20:00 Reassessment: Patient appears in no apparent distress at this time. No changes from previously documented assessment. Patient and/or family updated on plan of care and expected duration. Pain level reassessed. Patient is alert, oriented x 3, equal unlabored respirations, skin warm/dry/pink. 21:00 Reassessment: Patient appears in no apparent distress at this time. No changes from previously documented assessment. Patient and/or family updated on plan of care and expected duration. Pain level reassessed. Patient is alert, oriented x 3, equal unlabored respirations, skin warm/dry/pink. Patient states feeling better. Patient states symptoms have improved. 22:30 Reassessment: Patient appears in no apparent distress at this time. Patient and/or jb4 family updated on plan of care and expected duration. Pain level reassessed. Patient is alert, oriented x 3, equal unlabored respirations, skin warm/dry/pink. Vital Signs: 18:06 BP 126 / 101; Pulse 84; Resp 16; Temp 97.8; Pulse Ox 98% ; Weight 65.77 kg; Height 5 sv ft. 8 in. (172.72 cm); 20:00 BP 148 / 97; Pulse 73; Resp 18; Pulse Ox 100% on R/A; wh 21:00 BP 134 / 90; Pulse 99; Resp 18; Pulse Ox 100% on R/A; wh 22:30 BP 130 / 92; Pulse 96; Resp 16; Pulse Ox 96% on R/A; jb4 18:06 Body Mass Index 22.05 (65.77 kg, 172.72 cm) ED Course: 18:03 Patient arrived in ED. mr 18:03 Arm band placed on. sv 18:05 Triage completed. sv 18:08 Jeffrey Ramsey, RN is Primary Nurse. ll1 18:16 Sen Villa PA is PHCP. jr8 18:16 Delbert Jean MD is Attending Physician. jr8 19:15 Inserted saline lock: 22 gauge in right antecubital area, using aseptic technique. ll1 19:22 Patient has correct armband on for positive identification. Bed in low position. Call ll1 light in reach. Side rails up X 1. 22:45 No provider procedures requiring assistance completed. IV discontinued, intact, jb4 bleeding controlled, No redness/swelling at site. Pressure dressing applied. Administered Medications: 19:32 Drug: Benadryl 50 mg Route: IVP; Site: right antecubital; 21:36 Follow up: Response: No adverse reaction; No change in condition 19:34 Drug: Pepcid 20 mg Route: IVP; Site: right antecubital; 21:36 Follow up: Response: No adverse reaction; No change in condition 19:36 Drug: SOLU-Medrol 125 mg Route: IVP; Site: right antecubital; 21:36 Follow up: Response: No adverse reaction 20:39 Drug: EPINEPHrine 1mg/mL 1:1,000 0.5 mg Route: IM; Site: left deltoid; 21:37 Follow up: Response: No adverse reaction; Marked relief of symptoms 21:21 Drug: EPINEPHrine 1mg/mL 1:1,000 0.5 mg Route: IM; Site: right deltoid; 22:45 Follow up: Response: No adverse reaction; Marked relief of symptoms jb4 Outcome: 22:22 Discharge ordered by . jr8 22:45 Discharged to home via wheelchair, with family. jb4 22:45 Condition: stable 22:45 Discharge instructions given to patient, Instructed on discharge instructions, follow up and referral plans. medication usage, Demonstrated understanding of instructions, follow-up care, medications, Prescriptions given X 3. 22:58 Patient left the ED. jb4 Signatures: Cathie Thomason RN RN sv RiveraSolange mr Sen Villa PA PA jr8 Devon Jaramillo RN RN jb4 Dominik Sal Jeffrey Ramsey RN RN ll1 Corrections: (The following items were deleted from the chart) 18:09 18:04 Acuity: JULIET 4 sv sv 18:09 18:06 Pulse 84bpm; Resp 16bpm; Pulse Ox 98%; Temp 97.8F; 65.77 kg; Height 5 ft. 8 in.; sv BMI: 22.0; sv
[2020-02-06 23:04] VITALS: TEMP 97.8
[2020-02-06 23:08] VITALS: BP 130/92; O2SAT 96
== END 2020-02-06 22:58 | disposition home or self-care (01) ==
LOC: ER 17:59
DX: R21 Rash and other nonspecific skin eruption (principal); T78.2XXA Anaphylactic shock, unspecified, initial encounter; F31.9 Bipolar disorder, unspecified
CPT/HCPCS: 96375; 96372; 96374; 99283; J0171; J1200; J2930

== ENCOUNTER 2020-02-12 22:03 | Emergency (ER) | payer OTHER ==
--- OUTSIDE RECORDS SUMMARY | 2020-02-12 22:09 | XMS REPORT | Continuity of Care Document ---
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 [facility] pain b-[id number] PAUL Mccann 7a4 [place] from 1x060j0m-78 11/22 11/22 [facility] e.r./chest 06-418e-917 /2014 [facility] pain 1-tn57661l6 PAUL Mccann 45b [place] from [id number]-nc 11/22 11/22 [facility] e.r./chest 23-6t5z-1n7 /2014 [facility] pain 7-3i9350wmb PAUL Mccann 4eb [place] from [id number] 11/22 11/22 Family e.r./chest 7f-4413-ba0 /2014 [facility] pain f-[id number] PAUL Mccann 6a5 [place] from [id number]-ro 11/22 11/22 [facility] e.r./chest ea-0wt5-m69 /2014 [facility] pain e-2mi7ea99u PAUL Mccann d81 [place] from [id number]-51 11/22 11/22 Family e.r./chest 07-418f-b62 /2014 [facility] pain f-zh9m828q0 PAUL Mccann ef5 [place] from 66vu10fn-ut 11/22 11/22 [facility] e.r./chest 7f-4330-aaa /2014 [facility] pain f-s26152x0b PAUL Mccann f10 [place] from wa261mf8-7f 11/22 11/22 Family e.r./chest ba-442e-aa1 /2014 [facility] pain 0-086rak591 PAUL Mccann c9a [place] from [id number] 11/22 11/22 Family e.r./chest 2c-464b-8c8 /2014 [facility] pain 3-vcye43046 PAUL Mccann 263 [place] from [id number] 11/22 11/22 Family e.r./chest 44-44ed-978 /2014 [facility] pain b-336m217mq PAUL Mccann 34c [place] from [id number] 11/22 11/22 Family e.r./chest 0e-417b-aa6 /2014 [facility] pain e-5obz48h4t PAUL Mccann 99f [place] from [id number] 11/22 11/22 Family e.r./chest 3f-20x1-nh4 /2014 [facility] pain 9-7038ybws2 PAUL Mccann 21a [place] 1 month [id number]-wf 12/22 12/22 S L Family f/up 10-4123-a07 /2014 [facility] f-91t7m0o85 PAUL Mccann 48b [place] 1 month [id number]-e8 12/22 12/22 S L Family f/up 0e-9s45-81q /2014 [facility] 0-tmm51og16 PAUL Mccann 66f [place] 1 month [id number] 12/22 12/22 S L Family f/up fb-469c-942 /2014 [facility] a-d21za4dbj PAUL Mccann 860 [facility] 1 month 993x6srb-r9 12/22 12/22 S L Family f/up fa-465e-a92 /2014 [facility] 4-hto009r9f PAUL Mccann 57a [place] 1 month 00c6oti5-2o 12/22 12/22 S L Family f/up bd-4bdb-a41 /2014 [facility] a-1468ucr81 PAUL Mccann a7f [facility] 1 month 1ehdgu20-j9 12/22 12/22 S L Family f/up 14-12q3-v90 /2014 [facility] d-915in996d PAUL Mccann ab9 [facility] 1 month [id number]-31 12/22 12/22 S L Family f/up 57-4mb6-026 /2014 [facility] 1-[id number] PAUL Mccann 2b5 [place] 1 month pf7d3d42-il 12/22 12/22 S L Family f/up d1-6bn2-6ed /2014 [facility] f-7283q8zj6 PAUL Mccann e4a [place] 1 month 32z749y5-7j 12/22 12/22 S L Family f/up 96-5bj9-vsc /2014 [facility] 1-4kb0q6s49 PAUL Mccann fef [facility] 1 month b4xu8s13-e9 12/22 12/22 S L Family f/up bc-431e-bb7 /2014 [facility] a-75l25qh4m PAUL Mccann cbc [facility] 1 month 88333f8l-10 12/22 12/22 S L Family f/up 2a-72x1-7x4 /2014 [facility] c-[id number] PAUL Mccann 18a [facility] 1 month 996v4b5b-1z 12/22 12/22 S L Family f/up 56-4725-bc5 /2014 [facility] f-c197om9r5 PAUL Mccann 8d0 [facility] 1 month f286621i-[id number] 12/22 12/22 S L Family f/up 92-6p50-g59 /2014 [facility] f-036ghh7do PAUL Mccann d4a [facility] 1 month 67ihi23c-ka 12/22 12/22 S L Family f/up 1c-4334-9af /2014 [facility] f-[id number] PAUL Mccann f5b [facility] 1 month 2fnsqci9-48 12/22 12/22 S L Family f/up 01-77k3-y88 /2014 [facility] 2-x23domxv4 PAUL Mccann 2f4 [facility] 1 month 20kf8kx9-x4 12/22 12/22 S L Family f/up e1-3jm1-364 /2014 [facility] 0-[id number] PAUL Mccann a1b [facility] 1 month [id number] 12/22 12/22 S L Family f/up 4b-49fc-bf7 /2014 [facility] 8-5s39g70fv PAUL Mccann 9d2 [facility] REFILL 524m86z1-24 01/22 01/22 Family 33-45ab-94d /2014 [facility] 4-07k46i212 PAUL Mccann dfb [facility] REFILL d068c244-62 01/22 01/22 Family 18-4798-882 /2014 [facility] a-48s35zlgk PAUL Mccann 9a9 [place] REFILL [id number]-f7 01/22 01/22 [facility] 2b-40bb-bc3 /2014 [facility] c-[id number] PAUL Mccann 82b [place] REFILL 025clm5s-86 01/22 01/22 [facility] d3-4078-918 /2014 [facility] d-04xb609ik PAUL Mccann 210 [place] REFILL 9kfqv088-2f 01/22 01/22 [facility] 1d-2k7u-b88 /2014 [facility] 2-8k4e16s29 PAUL Mccann 206 [place] REFILL s8552qme-31 01/22 01/22 [facility] 09-26b0-s08 /2014 [facility] c-[id number] PAUL Mccann 3bd [place] REFILL 39h0etg2-c9 01/22 01/22 [facility] 0e-7z31-155 /2014 [facility] 9-15hov2u7b PAUL Mccann d35 [place] REFILL 5k01r9n0-k8 01/22 01/22 [facility] ca-4710-b83 /2014 [facility] f-[id number] PAUL Mccann 88c [place] REFILL 10f8o60c-04 01/22 01/22 [facility] 64-4cdd-884 /2014 [facility] 6-70o3942oj PAUL Mccann 44c [place] REFILL z3f71gaz-7u 01/22 01/22 [facility] 73-67o3-5p7 /2014 [facility] 9-915750ym4 PAUL Mccann 4e9 [place] REFILL 8qq3o8wd-77 01/22 01/22 [facility] 91-424e-987 /2014 [facility] e-[id number] PAUL Mccann 1d8 [place] REFILL e7myutz9-3v 01/22 01/22 [facility] 5f-9f14-437 /2014 [facility] 9-50f3m1540 PAUL Mccann b4d [place] REFILL rr81i13e-92 01/22 01/22 [facility] f0-2a66-gf5 /2014 [facility] 1-5f445794n PAUL Mccann 0b2 [place] REFILL 8d996x16-71 01/22 01/22 [facility] f9-44de-9f0 /2014 [facility] 6-8yn3f610s PAUL Mccann 45d [place] REFILL 1qem082p-k5 01/22 01/22 [facility] 94-35f7-54y /2014 [facility] 4-8r5cg2z2u PAUL Mccann 8ff [place] REFILL [id number]-d7 01/22 01/22 [facility] ae-8u38-x0z /2014 [facility] c-48829ke79 PAUL Mccann 42e [place] REFILL 04p5165r-06 01/22 01/22 [facility] af-2i1z-6c4 /2014 [facility] 2-n7am449x2 PAUL Mccann 8d4 [place] EAR ACHE, 4h5o6iz6-45 01/31 01/31 [facility] PAIN IN HIP e1-2my6-lw0 /2014 [facility] e-[id number] PAUL Mccann 77b [place] EAR ACHE, [id number] 01/31 01/31 [facility] PAIN IN HIP ca-4458-b69 /2014 [facility] 0-[id number] PAUL Mccann 933 [place] EAR ACHE, n96d6j1a-ka 01/31 01/31 [facility] PAIN IN HIP 78-4eae-add /2014 [facility] 3-867f53452 PAUL Mccann 36b [place] EAR ACHE, [id number] 01/31 01/31 [facility] PAIN IN HIP f7-77y7-gdl /2014 [facility] e-[id number] PAUL Mccann 317 [place] EAR ACHE, 344240we-20 01/31 01/31 [facility] PAIN IN HIP 59-491a-95c /2014 [facility] 5-48spf7h80 PAUL Mccann 1fb [place] EAR ACHE, 3tbtz126-51 01/31 01/31 [facility] PAIN IN HIP ec-1h6r-884 /2014 [facility] e-caebebebf H bhumika , [place] 9d3 [place] EAR ACHE, fu0kjrb8-98 01/31 01/31 [facility] PAIN IN HIP 66-9t7a-r9f /2014 [facility] 3-[id number] H eakellie , [place] bfa [place] EAR ACHE, f8o541si-89 01/31 01/31 [facility] PAIN IN HIP 33-4898-bee /2014 [facility] e-[id number] H ealtPAUL alfaro b9b [place] EAR ACHE, qz812zu3-5s 01/31 01/31 [facility] PAIN IN HIP 4b-56b4-c7z /2014 [facility] f-[id number] H ealtPAUL alfaro 725 [place] EAR ACHE, l59p5fr9-v3 01/31 01/31 [facility] PAIN IN HIP b4-8p4e-wg8 /2014 [facility] 6-lbd0di57r [facility] [place]alth , [place] 8df [place] EAR ACHE, 791p1z25-re 01/31 01/31 [facility] PAIN IN HIP 76-4376-a80 /2014 [facility] c-fmj6e6u1y H PAUL bai 7e9 [place] EAR ACHE, 53g410g5-4s 01/31 01/31 [facility] PAIN IN HIP 4b-9j78-60n /2014 [facility] 1-n1u9bi5w3 H ealtPAUL alfaro de4 [place] EAR ACHE, 2pckz21l-r6 01/31 01/31 [facility] PAIN IN HIP 9a-4478-b82 /2014 [facility] d-[id number] H ealtdominic PA 131 [place] EAR ACHE, [id number] 01/31 01/31 [facility] PAIN IN HIP c5-0s5z-b63 /2014 [facility] 0-y11ye1567 H ealtPAUL alfaro ef2 [place] EAR ACHE, nl0f9cau-m2 01/31 01/31 [facility] PAIN IN HIP e7-7qt0-ifx /2014 [facility] b-30zs267v2 H ealth PAUL 69c [place] EAR ACHE, 5mut726u-48 01/31 01/31 [facility] PAIN IN HIP 0e-49fb-be3 /2014 [facility] b-s7ey34o5t PAUL Mccann c9b [place] EAR ACHE, 81kdr8hj-y2 01/31 01/31 [facility] PAIN IN HIP e6-420b-84d /2014 [facility] 3-9k66f13dq PAUL Mccann 3df [place] refill req [id number] 02/15 02/15 [facility] 2c-16y0-dej /2014 [facility] 8-8qi1k2m90 PAUL Mccann a25 [place] refill req [id number] 02/15 02/15 [facility] 1c-4457-ab0 /2014 [facility] 5-203716r75 PAUL Mccann 488 [place] refill req [id number] 02/15 02/15 [facility] 00-22d4-ut2 /2014 [facility] d-[id number] PAUL Mccann c01 [place] refill req [id number] 02/15 02/15 [facility] 28-4478-980 /2014 [facility] 5-o9d0d1tyj PAUL Mccann 7dc [place] refill req [id number] 02/15 02/15 [facility] 0f-02j2-363 /2014 [facility] 9-h46bn2u6q PAUL Mccann c6c [place] refill req [id number] 02/15 02/15 [facility] 2b-435a-84e /2014 [facility] 5-[id number] PAUL Mccann 7b7 [place] refill req [id number] 02/15 02/15 [facility] 7d-5i65-34q /2014 [facility] 2-5yfx62rpq PAUL Mccann 529 [place] refill req [id number] 02/15 02/15 [facility] 56-491f-be2 /2014 [facility] [id number] PAUL Mccann 3d9 [place] refill req [id number] 02/15 02/15 [facility] 04-4dde-b94 /2014 [facility] f-[id number] PAUL Mccann a22 [place] refill req [id number] 02/15 02/15 [facility] 44-0f0o-zha /2014 [facility] c-9i937x1c3 PAUL Mccann 0e0 [place] refill req [id number] 02/15 02/15 [facility] ee-43s0-x40 /2014 [facility] [id number] PAUL Mccann c35 [place] refill req [id number] 02/15 02/15 [facility] 0c-1j00-z1d /2014 [facility] e-[id number] PAUL Mccann aa0 [place] refill req [id number] 02/15 02/15 [facility] f6-413e-816 /2014 [facility] e-[id number] PAUL Mccann 1ee [place] refill req [id number] 02/15 02/15 [facility] 41-4j04-ghx /2014 [facility] d-[id number] PAUL Mccann 3b8 [place] refill req [id number] 02/15 02/15 [facility] 11-6i9c-g72 /2014 [facility] a-76701f1k8 PAUL Mcacnn 9e6 [place] refill req [id number] 02/15 02/15 [facility] 5c-8z7a-p05 /2014 [facility] 8-78793fwer PAUL Mccann d3f [place] refill req [id number] 02/15 02/15 [facility] 28-9k20-y19 /2014 [facility] [id number] PAUL Mccann 2b5 [place] REFILL u3g760mv-20 03/20 03/20 [facility] CLONAZPEM e4-4999-b2e /2014 Fa [facility] e-kmv24dy9j PAUL Mccann 7d2 [place] REFILL [id number] 03/20 03/20 [facility] CLONAZPEM 5d-474d-b11 /2014 [facility] f-[id number] PAUL Mccann 799 [place] REFILL [id number] 03/20 03/20 [facility] CLONAZPEM 6b-3z9g-4q7 /2014 Fa [facility] [id number] PAUL Mccann mandi [place] REFILL 38277zoc-8r 03/20 03/20 [facility] CLONAZPEM df-4666-939 /2014 [facility] 7-tt0y4c2i9 PAUL Mccann ff4 [place] REFILL 217y6ui5-f2 03/20 03/20 [facility] CLONAZPEM cc-420d-ac [facility] d-12a8ynp5a PAUL Mccann 698 [place] REFILL 500hdh12-28 03/20 03/20 [facility] CLONAZPEM a9-45ee-98f [facility] c-9o303i7p0 PAUL Mccann 08a [place] REFILL [id number]-c6 03/20 03/20 SL Family CLONAZPEM 73-7t16-7vt [facility] 2-150354ic2 PAUL Mccann ce7 [place] REFILL 0epz7880-55 03/20 03/20 [facility] CLONAZPEM 6e-4abd-a41 [facility] 4-26fjk2m29 PAUL Mccann fcf [place] REFILL d86b2sc2-90 03/20 03/20 [facility] CLONAZPEM af-4258-996 /2014 [facility] 6-177ov0594 PAUL Mccann a7c [place] REFILL e5bk34g8-1l 03/20 03/20 [facility] CLONAZPEM 68-4021-ac4 /2014 [facility] d-[id number] PAUL Mccann 02f [place] REFILL 0j3nzty8-3s 08/11 08/11 [facility] CLONAZPEM 1a-3vg7-525 /2014 Fa [facility] 7-80b40k435 PAUL Mccann 352 [place] REFILL 895zm65g-p6 03/20 03/20 [facility] Family CLONAZPEM e6-4i56-5b6 /2014 Fa [facility] c-[id number] PAUL Mccann e64 [place] REFILL [id number]-5u 03/20 03/20 [facility] Family CLONAZPEM e9-5ex3-204 /2014 Fa [facility] 4-xv38gmuk4 PALU Mccann f94 [place] REFILL [id number] 03/20 03/20 [facility] CLONAZPEM 88-41ed-b22 /2014 Fa [facility] 6-4345q5134 PAUL Mccann 7e8 [place] REFILL 13h09qf2-25 03/20 03/20 [facility] CLONAZPEM 1f-4139-a55 /2014 [facility] 5-7z24dh5z4 PAUL Mccann 933 [place] REFILL 18bj06tr-33 03/20 03/20 [facility] Family CLONAZPEM 3e-4192-80c /2014 Fa [facility] 1-90f98n5v3 PAUL Mccann 22c [place] REFILL 9jh6d84g-9m 03/20 03/20 [facility] CLONAZPEM 1d-4cj8-ubs /2014 Fa [facility] b-[id number] PAUL Mccann a0c [place] Unknown [id number] 04/29 04/29 S L Family 46-9as8-y2q /2014 [facility] 7-6277m8s9v PAUL Mccann df8 [place] Unknown [id number] 04/29 04/29 S L Family 47-3w50-l7d /2014 [facility] [id number] PAUL Mccann 88d [place] Unknown [id number] 04/29 04/29 S L Family 05-4142-b99 /2014 [facility] d-580336t5g PAUL Mccann fb7 [place] Unknown [id number] 04/29 04/29 S L Family ca-9n5p-z3c /2014 [facility] [id number] PAUL Mccann 6ce [place] Unknown [id number] 04/29 04/29 S L Family dd-489f-a9e /2014 [facility] b-[id number] PAUL Mccann 576 [facility] Unknown [id number] 04/29 04/29 S L Family 15-40ca-9dc /2014 [facility] [id number] PAUL Mccann 6a4 [facility] Unknown [id number] 04/29 04/29 S L Family 10-4483-bb8 /2014 [facility] a-9q9i43q2k PAUL Mccann 408 [facility] Unknown [id number] 04/29 04/29 S L Family b8-6ia0-a40 /2014 [facility] 0-[id number] PAUL Mccann 055 [facility] Unknown [id number] 04/29 04/29 S L Family a5-4q4k-2md /2014 [facility] 6-[id number] PAUL Mccann a6c [facility] Unknown [id number] 04/29 04/29 S L Family e7-2z8m-b6c /2014 [facility] 0-[id number] PAUL Mccann 012 [facility] Unknown [id number] 04/29 04/29 S L Family 9a-4843-bbc /2014 [facility] f-[id number] PAUL Mccann 8ff [facility] Unknown [id number] 04/29 04/29 S L Family 75-410e-a0e /2014 [facility] d-[id number] PAUL Mccann faa [facility] Unknown [id number] 04/29 04/29 S L Family 1d-7q1w-mhj /2014 [facility] c-b76256l4p PAUL Mccann a95 [facility] Unknown [id number] 04/29 04/29 S L Family 81-404e-a81 /2014 [facility] 9-[id number] PAUL Mccann 619 [facility] Unknown [id number] 04/29 04/29 S L Family fb-84c8-skm /2014 [facility] 4-7z5jxd893 Dominic bai , PAUL 817 [facility] Unknown [id number] 04/29 04/29 S L Family f4-4f1i-cj1 /2014 [facility] f-[id number] PAUL Mccann 714 [facility] Unknown [id number] 04/29 04/29 S L Family cd-3h50-49t /2014 [facility] [id number] PAUL Mccann 02a [place] REFILL [id number] 07/16 07/16 Family CYCLOBENZAP b1-2r6r-844 /2014 [facility] RINE [id number] PAUL Mccann f87 [place] REFILL [id number] 07/16 07/16 [facility] CYCLOBENZAP b1-40be-a53 /2014 [facility] RINE b-[id number] PAUL Mccann 46f [place] REFILL [id number] 07/16 07/16 [facility] CYCLOBENZAP 34-454e-954 /2014 [facility] RINE [id number] PAUL Mccann 345 [place] REFILL [id number] 07/16 07/16 [facility] CYCLOBENZAP 2c-41fa-adf /2014 [facility] RINE 8-5178j71yk PAUL Mccann 733 [place] REFILL [id number] 07/16 07/16 [facility] CYCLOBENZAP 78-1a83-236 /2014 [facility] RINE 9-[id number] PAUL Mccann 26f [place] REFILL [id number] 07/16 07/16 [facility] CYCLOBENZAP 8e-75m0-73y /2014 [facility] RINE 7-[id number] PAUL Mccann 4e9 [place] REFILL [id number] 07/16 07/16 [facility] CYCLOBENZAP bd-488b-8a6 /2014 [facility] RINE b-[id number] PAUL Mccann b40 [place] REFILL [id number]-w7 07/16 07/16 [facility] CYCLOBENZAP e2-473b-97e /2014 [facility] RINE [id number] PAUL Mccann 4c9 [place] REFILL [id number] 07/16 07/16 [facility] CYCLOBENZAP 21-86w7-6m8 /2014 [facility] a-[id number] PAUL Mccann [address] [place] [id number] 07/16 07/16 [facility] CYCLOBENZAP 0d-4492-a92 /2014 [facility] e-[id number] PAUL Mccann fda [place] [id number] 07/16 07/16 [facility] CLONAZEPAM 83-3uu9-q63 /2014 [facility] [id number] PAUL Mccann acc [place] [id number] 07/16 07/16 [facility] CLONAZEPAM b9-30x1-xvy /2014 [facility] [id number] PAUL Mccann 93d [place] [id number] 07/16 07/16 [facility] CLONAZEPAM c8-13z9-gij /2014 [facility] 1-[id number] PAUL Mccann e8f [place] [id number] 07/16 07/16 [facility] CLONAZEPAM fd-4212-aa4 /2014 [facility] d-[id number] PAUL Mccann d44 [place] [id number] 07/16 07/16 [facility] CLONAZEPAM 62-7s91-9ts /2014 [facility] [id number] PAUL Mccann [address] [place] [id number] 07/16 07/16 [facility] CLONAZEPAM e7-2h2q-a30 /2014 [facility] [id number] PAUL Mccann 8b0 [place] [id number] 07/16 07/16 [facility] CLONAZEPAM 77-4195-8ba /2014 [facility] 7-[id number] PAUL Mccann 3f2 [place] [id number] 07/16 07/16 [facility] CLONAZEPAM 03-8dn7-80x /2014 F [facility] d-[id number] PAUL Mccann e41 [place] [id number] 07/16 07/16 [facility] CLONAZEPAM a7-47fa-997 /2014 F [facility] [id number] PAUL Mccann 38f [place] [id number] 07/16 07/16 [facility] CLONAZEPAM f2-0rs1-p42 /2014 F [facility] [id number] PAUL Mccann f57 [place] [id number] 07/16 07/16 [facility] TRAZADONE 5a-420c-8bf /2014 Fa [facility] c-[id number] PAUL Mccann 7ac [place] [id number] 07/16 07/16 [facility] TRAZADONE d4-41ec-8ca /2014 Fa [facility] b-[id number] PAUL Mccann 7[address] [place] [id number] 07/16 07/16 [facility] TRAZADONE 69-4589-a8c /2014 Fa [facility] [id number] PAUL Mccann c8b [place] [id number] 07/16 07/16 [facility] TRAZADONE 7b-485b-9f5 /2014 Fa [facility] 0-[id number] PAUL Mccann [address] [place] [id number] 07/16 07/16 [facility] TRAZADONE 37-4631-b52 /2014 Fa [facility] [id number] PAUL Mccann 3b1 [place] [id number] 07/16 07/16 [facility] TRAZADONE 1e-450c-ac0 /2014 Fa [facility] [id number] PAUL Mccann ec8 [place] [id number] 07/16 07/16 [facility] TRAZADONE a5-4ecf-86f /2014 [facility] [id number] PAUL Mccann 96f [place] [id number] 07/16 07/16 [facility] TRAZADONE 54-4586-aa3 /2014 [facility] 2-[id number] H PAUL bai 949 [place] [id number] 07/16 07/16 [facility] TRAZADONE af-4476-aef /2014 [facility] b-[id number] PAUL Mccann [address] [place] [id number] 07/16 07/16 [facility] TRAZADONE 3b-4747-899 /2014 [facility] d-[id number] PAUL Mccann 13a [place] [id number] 07/16 07/16 [facility] TRAZADONE 89-2l12-7c8 /2014 [facility] d-[id number] H PAUL bai 3e8 [place] [id number] 07/16 07/16 [facility] TRAZADONE 9f-38u5-28o /2014 [facility] d-[id number] PAUL Mccann 0d5 [place] [id number] 07/16 07/16 [facility] TRAZADONE e1-1s6n-i89 /2014 [facility] [id number] H PAUL bai 42c [place] [id number] 07/16 07/16 [facility] TRAZADONE d5-4006-b5d /2014 [facility] [id number] PUAL Mccann [address] [place] [id number] 07/16 07/16 [facility] TRAZADONE 25-1d40-k86 /2014 [facility] c-[id number] PAUL Mccann 6b3 [place] [id number] 07/16 07/16 [facility] TRAZADONE c9-455d-b3f /2014 Fa [facility] e-[id number] H PAUL bai 6fa [place] [id number] 07/16 07/16 [facility] TRAZADONE 6a-0go7-cc2 /2014 [facility] [id number] H PAUL bai ac5 [place] [id number] 07/16 07/16 [facility] TRAZADONE f7-4z1d-eto /2014 [facility] a-[id number] H PAUL bai 38a [place] [id number] 07/16 07/16 Family TRAZADONE 61-43ec-b4f /2014 [facility] e-[id number] PAUL Mccann [address] [place] [id number] 07/16 07/16 Family TRAZADONE 73-438a-84a /2014 [facility] [id number] PAUL Mccann [address] [place] 7zb4o0qa-3m 07/16 07/16 Family CYCLOBENZAP d0-51n3-od4 /2014 [facility] b-6v3kva07n PAUL Mccann d42 [place] REFILL [id number] 07/16 07/16 [facility] CYCLOBENZAP 49-89n4-9xs /2014 [facility] 2-ytv64os3m PAUL Mccann 64e [place] REFILL [id number] 07/16 07/16 [facility] CYCLOBENZAP 7b-4y11-8c1 /2014 [facility] [id number] PAUL Mccann fa0 [place] REFILL 4kgc45b9-e3 07/16 07/16 [facility] CYCLOBENZAP a6-4499-818 /2014 [facility] 2-83706y56b PAUL Mccann 294 [place] REFILL [id number]-jd 07/16 07/16 SL Family CYCLOBENZAP 9c-4717-8f2 /2014 [facility] c-041yq0v68 PAUL Mccann 446 [place] REFILL [id number]-70 07/16 07/16 SL Family CYCLOBENZAP 24-494d-9ab /2014 [facility] a-dj30r1n51 PAUL Mccann 17b [place] REFILL [id number] 07/16 07/16 SL [facility] CYCLOBENZAP 51-3h53-u06 /2014 [facility] 1-t7l6f1g32 PAUL Mccann d6a [place] REFILL [id number]-23 07/16 07/16 SL Family CLONAZEPAM 8d-414a-b66 /2014 [facility] 7-3330k260r PAUL Mccann 6cc [place] REFILL [id number] 07/16 07/16 SL Family CLONAZEPAM 5d-401d-a90 /2014 [facility] 3-sbk0559uf PAUL Mccann 9c2 [place] REFILL 20315md7-f3 07/16 07/16 Family CLONAZEPAM 1c-49dd-93c /2014 [facility] e-z483et3n7 PAUL Mccann 383 [place] REFILL [id number]-z9 07/16 07/16 Family CLONAZEPAM b3-458f-95b /2014 [facility] f-[id number] PAUL Mccann 5ab [place] REFILL oko05b22-1l 07/16 07/16 Family CLONAZEPAM 70-471f-b99 /2014 [facility] f-b3770j8t2 PAUL Mccann 229 [place] REFILL [id number]-h6 07/16 07/16 SL Family CLONAZEPAM f8-4iv8-7z2 /2014 [facility] b-[id number] PAUL Mccann d1a [place] REFILL [id number]-r5 07/16 07/16 SL Family CLONAZEPAM 84-8d29-24m /2014 [facility] 3-[id number] PAUL Mccann 293 [place] REFILL [id number] 07/16 07/16 Family TRAZADONE 67-26x1-54n /2014 [facility] d-[id number] PAUL Mccann 80b [place] REFILL [id number] 07/16 07/16 SL Family TRAZADONE ec-69m7-g5w /2014 [facility] a-o255136v9 PAUL Mccann 19a [place] REFILL [id number] 07/16 07/16 SL Family TRAZADONE a8-4509-bbc /2014 [facility] [id number] PAUL Mccann 21d [place] REFILL [id number] 07/16 07/16 SL Family TRAZADONE 2c-1v8q-298 /2014 [facility] f-[id number] PAUL Mccann cc4 [place] RE[facility]LL f4fy17qd-z4 07/16 07/16 SL Family TRAZADONE 40-4a8w-4l3 /2014 [facility] c-[id number] PAUL Mccann e15 [place] REFILL 7g2jfd5y-5j 07/16 07/16 SL Family TRAZADONE e2-81l2-blv /2014 [facility] a-[id number] PAUL Mccann 147 [place] REFILL 07fkd8oi-7k 07/16 07/16 SL Family TRAZADONE 87-4770-bfb /2014 [facility] [id number] PAUL Mccann 6dc [place] REFILL [id number] 07/16 07/16 SL Family TRAZADONE e3-2h07-633 /2014 [facility] [id number] PAUL Mccann e1a [place] REFILL 5565j23t-3v 07/16 07/16 SL Family TRAZADONE 57-84s2-688 /2014 [facility] 4-emh1n75j9 PAUL Mccann 0f6 [place] RE[facility]LL [id number]-q2 07/16 07/16 SL Family TRAZADONE 0a-2b87-rbm /2014 [facility] b-52r81ijv7 PAUL Mccann f9a [place] RE[facility]LL 3l5y8h2f-x6 07/16 07/16 SL Family TRAZADONE 12-4dbb-818 /2014 [facility] [id number] PAUL Mccann cf3 [place] RE[facility]LL [id number] 07/16 07/16 SL Family TRAZADONE f4-6j8a-nc5 /2014 [facility] [id number] PAUL Mccann 30b [place] RE[facility]LL do8kbp85-03 07/16 07/16 SL Family TRAZADONE 4d-0n1s-q59 /2014 [facility] 2-48rls4z81 PAUL Mccann 2dd [place] RE[facility]LL [id number]-52 07/16 07/16 SL Family TRAZADONE fe-4cbd-af2 /2014 [facility] f-[id number] PAUL Mccann 4b8 [place] TOXICOLOGY- [id number] 08/08 08/08 SL Family -ADDERALL 36-07c4-sz4 /2014 [facility] 3-[id number] PAUL Mccann 3c9 [place] TOXICOLOGY- [id number] 08/08 08/08 SL Family -ADDERALL 6e-68v0-739 /2014 [facility] 8-8ckk0l9x5 PAUL Mccann e04 [place] TOXICOLOGY- 031509kn-w7 08/08 08/08 SL Family -ADDERALL a7-5t53-s20 /2014 [facility] 0-pg0cp4s9a PAUL Mccann 76d [place] TOXICOLOGY- [id number]-sb 08/08 08/08 SL Family -ADDERALL 26-3l74-303 /2014 [facility] 9-13dol1946 PAUL Mccann 4d9 [place] TOXICOLOGY- [id number]-[id number] 08/08 08/08 SL Family -ADDERALL 43-4899-a4b /2014 [facility] b-[id number] PAUL Mccann fc5 [place] TOXICOLOGY- 0z690mk4-b4 08/08 08/08 SL Family -ADDERALL ed-38y8-kz2 /2014 [facility] e-84607w4j3 PAUL Mccann 5ac [facility] TOXICOLOGY- [id number] 08/08 08/08 SL Family -ADDERALL d6-417d-913 /2014 [facility] 2-wo9m6qo5x PAUL Mccann 66d [facility] TOXICOLOGY- [id number] 08/08 08/08 SL Family -ADDERALL df-5l35-lcr /2014 [facility] 5-2wd6s3io9 PAUL Mccann f59 [facility] TOXICOLOGY- [id number]-[id number] 08/08 08/08 SL Family -ADDERALL 80-9v90-451 /2014 [facility] 8-[id number] PAUL Mccann 391 [facility] TOXICOLOGY- [id number]-[id number] 08/08 08/08 SL Family -ADDERALL b8-4ebd-a6d /2014 [facility] 4-a70753hj9 PAUL Mccann ceb [facility] TOXICOLOGY- sq30ud0v-08 08/08 08/08 SL Family -ADDERALL 4f-41de-924 /2014 [facility] a-[id number] PAUL Mccann aa5 [facility] TOXICOLOGY- [id number]-3j 08/08 08/08 SL Family -ADDERALL a6-4239-b00 /2014 [facility] d-[id number] PAUL Mccann c85 [facility] TOXICOLOGY- [id number]-z2 08/08 08/08 SL Family -ADDERALL 56-44fa-a13 /2014 [facility] d-[id number] PAUL Mccann c0b [facility] TOXICOLOGY- qemt1534-q4 08/08 08/08 SL Family -ADDERALL 29-2vd0-9u1 /2014 [facility] b-[id number] PAUL Mccann 532 [facility] TOXICOLOGY- [id number]-98 08/08 08/08 SL Family -ADDERALL 2e-5o89-311 /2014 [facility] c-[id number] PAUL Mccann 178 [facility] TOXICOLOGY- [id number]-g4 08/08 08/08 SL Family -ADDERALL b1-30m1-nqk /2014 [facility] 1-56xjcci93 H PAUL bai c72 [facility] TOXICOLOGY- [id number]-[id number] 08/08 08/08 Family -ADDERALL a4-4j60-d0q /2014 Fa [facility] d-7cm4u73g7 H PAUL bai 2c6 [facility] Unknown [id number] 08/19 08/19 S L Family ec-7jt9-026 /2015 [facility] 7-[id number] H bhumika , PAUL c60 [facility] Unknown [id number] 08/19 08/19 S L Family a7-2su5-ps7 /2015 [facility] b-[id number] PAUL Mccann 77a [facility] Unknown [id number] 08/19 08/19 S L Family 3d-9dg1-201 /2015 [facility] 8-6552gd8y3 H PAUL bai 9fd [facility] Unknown [id number] 08/19 08/19 S L Family 72-4628-be3 /2015 [facility] 7-506bzz970 H bhumika , PAUL f80 [facility] Unknown [id number] 08/19 08/19 S L Family f2-04o2-e1t /2015 [facility] 8-5s10i263m PAUL Mccann c0d [facility] Unknown [id number] 08/19 08/19 S L Family e3-94d2-z9f /2015 [facility] 4-69t9rg72e PAUL Mccann 615 [facility] Unknown [id number] 08/19 08/19 S L Family bc-4418-b87 /2015 [facility] 5-54496n453 PAUL Mccann 577 [facility] Unknown [id number] 08/19 08/19 S L Family 3f-44db-a50 /2015 [facility] f-[id number] PAUL Mccann e2e [facility] Unknown [id number] 08/19 08/19 S L Family 42-4ecb-a49 /2015 [facility] 3-p78xd0wf5 H bhumika , PAUL 955 [place] Unknown [id number] 08/19 08/19 S L Family 34-3gd6-924 /2015 [facility] 2-[id number] H bhumika , PAUL c73 [place] Unknown [id number] 08/19 08/19 S L Family 80-6k26-0s3 /2015 [facility] a-s68578w73 H bhumika , [place] 8d7 [place] Unknown [id number] 08/19 08/19 S L Family 4c-8y69-5wg /2015 [facility] 3-6xkw17fl7 Dominic bai , PAUL 594 [place] Unknown [id number] 08/19 08/19 S L Family fb-2t8f-pr7 [facility] c-7465se9k0 H PAUL bai 708 [place] Unknown [id number] 08/19 08/19 S L Family 6c-4699-b8f /2015 [facility] [id number] H PAUL bai 02d [place] Unknown [id number] 08/19 08/19 S L Family 2e-78j2-xt5 /2015 [facility] 6-y9tkpwqq5 H PAUL bai ac8 [place] Unknown [id number] 08/19 08/19 S L Family 7a-6n85-8xz /2015 [facility] 9-[id number] Dominic bai [place] 5f3 [place] Unknown [id number] 08/19 08/19 S L Family 77-0b18-561 /2015 [facility] f-[id number] PAUL Mccann 8ae [place] REFILL REQ- 8vv8gb94-c2 11/07 11/07 Family CLONAZEPAM 68-93q4-adf /2015 [facility] 1-c89ibx25l PAUL Mccann e4e [place] REFILL REQ- [id number]-32 11/07 11/07 SL Family CLONAZEPAM 1e-4bfe-a52 /2015 [facility] 5-3w501ke2i PAUL Mccann e71 [place] REFILL REQ- [id number]-xz 11/07 11/07 SL Family CLONAZEPAM ae-2u19-6vy /2015 [facility] d-[id number] PAUL Mccann 307 [place] REFILL REQ- [id number]-75 11/07 11/07 SL Family CLONAZEPAM 09-1g69-d87 /2015 [facility] 1-592293ph6 PAUL Mccann 60b [place] REFILL REQ- [id number] 11/07 11/07 SL Family CLONAZEPAM 2a-4452-acc /2015 [facility] [id number] PAUL Mccann c27 [place] REFILL REQ- [id number] 11/07 11/07 SL Family CLONAZEPAM 84-40cc-8bc /2015 [facility] 1-3q05dondy PAUL Mccann ebe [place] REFILL REQ- 599c2pri-0x 11/07 11/07 SL Family CLONAZEPAM 76-6cj7-r63 /2015 [facility] 2-22l3u5q5t PAUL Mccann 729 [place] REFILL REQ- 63960op4-c2 11/07 11/07 SL Family CLONAZEPAM b0-06v6-5od /2015 [facility] 2-[id number] PAUL Mccann dc7 [place] REFILL REQ- [id number] 11/07 11/07 SL Family CLONAZEPAM 9a-482f-bb6 /2015 [facility] 7-c6853o6j8 PAUL Mccann a20 [place] REFILL REQ- [id number]-54 11/07 11/07 SL Family CLONAZEPAM f6-3z00-cxx /2015 [facility] 8-[id number] PAUL Mccann 2e8 [place] REFILL REQ- [id number]-86 11/07 11/07 SL Family CLONAZEPAM ac-493d-a2d /2015 [facility] f-[id number] PAUL Mccann 3d4 [place] REFILL REQ- [id number]-yx 11/07 11/07 SL Family CLONAZEPAM 76-50v5-8t2 /2015 [facility] 6-99no4d904 PAUL Mccann 6e4 [place] REFILL REQ- 86g6ijxn-07 11/07 11/07 SL Family CLONAZEPAM ee-8v56-1ri /2015 [facility] 8-4fwt37f81 PAUL Mccann 47a [place] REFILL REQ- [id number] 11/07 11/07 SL Family CLONAZEPAM 4f-412b-8a6 /2015 [facility] d-[id number] PAUL Mccann 5d7 [place] REFILL REQ- j91m6w94-xh 11/07 11/07 SL Family CLONAZEPAM e1-4715-b10 /2015 [facility] 3-839a64l0i PAUL Mccann 277 [place] REFILL REQ- 0r24w22s-80 11/07 11/07 SL Family CLONAZEPAM 4c-416b-bd7 /2015 [facility] 0-q115l232w PAUL Mccann 38c [place] REFILL REQ- [id number] 11/08 11/08 SL Family TRAZODONE 1c-417a-8b8 Fa [facility] 7-i47887f4g PAUL Mccann 727 [place] REFILL REQ- gv03l25o-39 11/08 11/08 SL Family TRAZODONE 4d-4254-843 /2015 [facility] 1-[id number] PAUL Mccann ed5 [place] REFILL REQ- 3x91r1x2-hc 11/08 11/08 SL Family TRAZODONE e2-4ede-a24 /2015 [facility] 1-[id number] PAUL Mccann c51 [place] REFILL REQ- [id number]-s3 11/08 11/08 SL Family TRAZODONE 5e-1u33-3e3 /2015 [facility] c-[id number] [facility] [place]alth , [place] 6c7 [place] REFI[place] REQ- p913z3hs-44 11/08 11/08 SL Family TRAZODONE dd-7vm5-6fq /2015 [facility] a-f8a1bhft9 PAUL Mccann 37c [place] REFILL REQ- zunc7p97-94 11/08 11/08 SL Family TRAZODONE 0c-4466-8cd /2015 [facility] c-a2quqc9a9 Dominic bai PA 604 [place] REFILL REQ- 8356hx2r-a8 11/08 11/08 Family TRAZODONE b0-4644-be2 /2015 [facility] e-[id number] PAUL Mccann 330 [place] REFILL REQ- a533mz7z-49 11/08 11/08 Family TRAZODONE 1f-2nh5-7yh /2015 [facility] 5-e52074v91 Dominic bai , [place] f85 [place] REFILL REQ- i04v70qq-0k 11/08 11/08 Family TRAZODONE 5f-0n54-l9b /2015 [facility] 2-6mq86a2y6 Dominic bai PA 118 [place] REFI[facility] REQ- [id number]-[id number] 11/08 11/08 Family TRAZODONE 16-4405-a1b /2015 [facility] [id number] PAUL Mccann c34 [place] REFILL REQ- [id number] 11/08 11/08 Family TRAZODONE b0-47j0-ed9 /2015 [facility] 2-abra804d2 Dominic bai PA 920 [place] REFILL REQ- r66s7iyq-qf 11/08 11/08 Family TRAZODONE 86-8x9l-6r4 /2015 [facility] 9-7z3623i80 Dominic bai PA f36 [place] REFILL REQ- 8226ux5f-ge 11/08 11/08 Family TRAZODONE ff-71v4-5fl /2015 [facility] 7-[id number] H [place]alth , [place] f84 [place] REFILL REQ- [id number] 11/08 11/08 SL Family TRAZODONE 28-99p9-27k /2015 [facility] b-[id number] PAUL Mccann a2e [place] REFILL REQ- 45069vcg-88 11/08 11/08 SL Family JENN d0-4249-bc5 /2015 [facility] d-1m9jyjace PAUL Mccann da1 [facility] TOX [id number] 12/05 12/05 SL Family ab-2w7s-oi2 /2015 [facility] 8-48ry772im PAUL Mccann 74d [place] TOX [id number] 12/05 12/05 SL Family c0-4667-b15 /2015 [facility] d-[id number] PAUL Mccann 787 [facility] TOX 4b8w2zw2-on 12/05 12/05 SL Family 7d-3fg2-6c1 /2015 [facility] [id number] PAUL Mccann ac1 [place] TOX [id number] 12/05 12/05 SL Family d7-4175-a4c /2015 [facility] a-[id number] PAUL Mccann bcf [place] TOX [id number] 12/05 12/05 SL Family 4a-9ia0-z51 /2015 [facility] 8-i649i26q8 PAUL Mccann 8c7 [place] TOX [id number] 12/05 12/05 SL Family 5e-56m1-th0 /2015 [facility] 7-e5prcfg93 PAUL Mccann ca6 [place] TOX ock9a45m-1s 12/05 12/05 SL Family d9-40fc-928 /2015 [facility] 6-10a70py86 PAUL Mccann 127 [place] TOX [id number] 12/05 12/05 SL Family 74-4daa-a3c /2015 [facility] c-05tg4ccwn PAUL Mccann 255 [place] TOX [id number]-fh 12/05 12/05 SL Family 2e-47cc-b56 /2015 [facility] c-97gjeu90m H PAUL bai 118 [place] TOX [id number] 12/05 12/05 SL Family 23-495a-bf /2015 [facility] 3-e9467p3v2 H PAUL bai 91b [place] TOX [id number]-73 12/05 12/05 SL Family 1f-7k54-6p7 /2015 [facility] 9-[id number] H PAUL bai db6 [facility] Unknown [id number] 12/29 12/29 S L Family 26-451f-ac8 [facility] e-1p4e1i0k7 H PAUL bai de5 [facility] Unknown [id number] 12/29 12/29 S L Family 2a-3wa8-0l4 /2015 [facility] 7-[id number] PAUL Mccann efb [facility] Unknown [id number] 12/29 12/29 S L Family 59-4143-a6 /2015 [facility] 5-m9cw526o5 H PAUL bai 8ba [facility] Unknown [id number] 12/29 12/29 S L Family fc-438f-a2a /2015 [facility] [id number] H PAUL bai ad7 [facility] Unknown [id number] 12/29 12/29 S L Family 65-2vs9-s73 /2015 [facility] 8-[id number] H PAUL bai 4bb [place] Unknown [id number] 12/29 12/29 S L Family 8f-15d0-62p /2015 [facility] c-[id number] H PAUL bai 2f5 [place] Unknown [id number] 12/29 12/29 S L Family fc-9vb3-b5x /2015 [facility] [id number] PAUL Mccann ddb [place] Unknown [id number] 12/29 12/29 S L Family 50-44df-97f /2015 [facility] f-[id number] Dominic bai , [place] 53e [place] Unknown [id number] 12/29 12/29 S L Family 39-426e-963 /2015 [facility] d-856m9r7a8 Dominic bai , [place] 9b9 [place] Unknown [id number] 12/29 12/29 S L Family 00-4209-a08 /2015 [facility] b-1265jzk03 H bhumika , [place] 1a1 [place] Unknown [id number] 12/29 12/29 S L Family 7d-4123-be3 /2015 [facility] 3-x032kb145 Dominic bai , [place] 099 [place] Unknown [id number] 12/29 12/29 S L Family a5-408a-90a /2015 [facility] 5-222968mf0 Dominic bai , [place] d1e [place] Unknown [id number] 12/29 12/29 S L Family 67-437c-b39 /2015 [facility] [id number] Dominic bai , [place] e70 [place] Unknown [id number] 12/29 12/29 S L Family b7-3q02-076 /2015 [facility] [id number] Dominic bai , [place] 43f [place] REFILL REQ- [id number] 01/08 01/08 Family CLONAZEPAM d2-9t72-91d /2015 [facility] 6-6n3a36a9p PAUL Mccann 1e8 [place] REFILL REQ- rz6e8r3y-67 01/08 01/08 Family CLONAZEPAM 05-452e-8ed /2015 [facility] d-i1o418hie Dominic bai PA b1f [place] REFILL REQ- [id number]-yg 01/08 01/08 SL Family CLONAZEPAM a6-4611-815 /2015 [facility] 7-757m7432g Dominic bai PA 61f [place] REFILL REQ- [id number]-75 01/08 01/08 Family CLONAZEPAM 32-4608-9c0 /2015 [facility] 9-[id number] PAUL Mccann 3bd [place] REFILL REQ- [id number] 01/08 01/08 Family CLONAZEPAM 5d-4059-ba1 /2015 F [facility] d-[id number] Dominic bai PA 38a [place] REFILL REQ- [id number]-gv 01/08 01/08 SL Family CLONAZEPAM 97-40bc-999 /2015 [facility] 8-1v4jn4ufh PAUL Mccann 596 [place] REFILL REQ- [id number] 01/08 01/08 Family CLONAZEPAM ba-473a-896 /2015 F [facility] 1-[id number] PAUL Mccann 149 [place] REFILL REQ- [id number] 01/08 01/08 Family CYCLOBENZAP 78-46ab-ab5 /2015 [facility]INE 0-0299wlg07 Dominic bai PA 96d [place] REFILL REQ- 36f07sot-w8 01/08 01/08 Family CYCLOBENZAP c9-4780-8ee /2015 [facility] 0-[id number] PAUL Mccann c23 [place] REFILL REQ- 35233kb7-c1 01/08 01/08 Family CYCLOBENZAP 62-9ze2-g24 /2015 [facility] 1-du08cpx07 Dominic bai PA 836 [place] REFILL REQ- [id number] 01/08 01/08 Family CYCLOBENZAP ad-0o9e-762 /2015 [facility] 4-4859z3bw5 Dominic bai [place] 2b7 [place] REFILL REQ- a7t063gq-17 01/08 01/08 Family CYCLOBENZAP 72-1i3u-8zb /2015 [facility] f-[id number] Dominic bai PA 6cf [place] REFILL REQ- [id number] 01/08 01/08 Family CYCLOBENZAP c2-469a-a05 /2015 [facility] [id number] PAUL Mccann 67f [place] REFILL REQ- 3wl894qk-7t 01/08 01/08 SL Family CYCLOBENZAP 3e-85j7-e4r /2015 [facility] 0-ep8i7j3k8 PALU Mccann 71c [place] REFILL REQ- [id number] 01/08 01/08 SL Family CLONAZEPAM 28-96r9-629 /2015 [facility] e-kk5479t0o PAUL Mccann 720 [place] REFILL REQ- [id number] 01/08 01/08 SL Family CLONAZEPAM 55-4fca-af1 /2015 [facility] a-9568pxq87 PAUL Mccann 5d2 [place] REFILL REQ- [id number]-to 01/08 01/08 SL Family CLONAZEPAM 24-8q61-ey8 /2015 [facility] 6-6wzw3ev68 PAUL Mccann 38a [place] REFILL REQ- [id number] 01/08 01/08 SL Family CLONAZEPAM 52-5fr9-k6d /2015 [facility] e-4in75ti00 PAUL Mccann c82 [place] REFILL REQ- [id number]-c5 01/08 01/08 SL Family CLONAZEPAM 6d-7bq8-lm9 /2015 [facility] c-[id number] PAUL Mccann 73d [place] REFILL REQ- 94k69j99-di 01/08 01/08 SL Family CLONAZEPAM 26-46db-930 /2015 [facility] 4-b26srcq07 PAUL Mccann cf8 [place] REFILL REQ- 29i5409g-t8 01/08 01/08 Family CYCLOBENZAP 7f-442c-980 /2015 [facility] 9-u305gy1d0 PAUL Mccann 465 [place] REFILL REQ- 4515m0p3-y6 01/08 01/08 Family CYCLOBENZAP c6-65a7-4ov /2015 [facility] 9-ie3440ewj PAUL Mccann 6cb [place] REFILL REQ- 365bg12d-q2 01/08 01/08 SL Family CYCLOBENZAP c6-44ed-826 /2015 [facility] [id number] H bhumika , PAUL e27 [place] REFILL REQ- [id number]-z7 01/08 01/08 SL Family CYCLOBENZAP bd-3u62-13l /2015 [facility] a-u2v1ibqez H PAUL bai 93e [place] REFILL REQ- [id number]-7m 01/08 01/08 SL Family CYCLOBENZAP bf-46ef-b7b /2015 [facility] 8-9p5qs7z1v H PAUL bai 7d8 [place] REFILL REQ- 26h25s2o-mb 01/08 01/08 SL Family CYCLOBENZAP 8a-27d8-g3g /2015 [facility] d-tm68c83u8 H bhumika , [place] b64 [facility] ADD ON TOX [id number] 03/24 03/24 [facility] PER [id number] /2015 [facility] [id number] Health , [place] d3c [facility] ADD ON TOX [id number] 03/24 03/24 [facility] PER [id number] /2015 [facility] [id number] Health , [place] 3c7 [facility] ADD ON TOX [id number] 03/24 03/24 [facility] PER [id number] /2015 [facility] e-[id number] Health [place] 65f [facility] ADD ON TOX [id number] 03/24 03/24 [facility] PER [id number] /2015 [facility] c-[id number] Health , [place] 478 [facility] ADD ON TOX [id number] 03/24 03/24 [facility] PER [id number] /2015 [facility] [id number] Health , [place] ad9 [facility] ADD ON TOX [id number] 03/24 03/24 [facility] PER [id number] /2015 [facility] [id number] Chavez 30c [place] ADD ON TOX [id number] 03/24 03/[address] [id number] /2015 [facility] [id number] PAUL Wadsworth 075 [place] REFILL REQ- [id number] 03/24 03/24 [facility] TRAZODONE [id number] /2015 Fa [facility] d-[id number] PAUL Mccann d01 [place] REFILL REQ- [id number] 03/24 03/24 [facility] TRAZODONE [id number] /2015 Fa [facility] [id number] PAUL Mccann ee9 [place] REFILL REQ- [id number] 03/24 03/24 [facility] TRAZODONE [id number] /2015 Fa [facility] b-[id number] PAUL Mccann cf3 [place] REFILL REQ- [id number] 03/24 03/24 Family TRAZODONE [id number] /2015 Fa [facility] [id number] PAUL Mccann fef [place] REFILL REQ- [id number] 03/24 03/24 [facility] CLONAZEPAM [id number] /2015 F [facility] [id number] PAUL Mccann 625 [place] REFILL REQ- [id number] 03/24 03/24 [facility] CLONAZEPAM [id number] /2015 F [facility] e-[id number] PAUL Mccann 43c [place] REFILL REQ- [id number] 03/24 03/24 [facility] CLONAZEPAM [id number] /2015 F [facility] e-[id number] PAUL Mccann da1 [place] REFILL REQ- [id number] 03/24 03/24 Family CLONAZEPAM [id number] /2015 F [facility] 5-[id number] PAUL Mccann ad6 [place] REFILL REQ- [id number] 03/24 03/24 [facility] TRAZODONE [id number] /2015 Fa [facility] d-[id number] PAUL Mccann 642 [place] REFILL REQ- [id number] 03/24 03/24 [facility] TRAZODONE [id number] /2015 Fa [facility] e-[id number] PAUL Mccann ad2 [place] REFILL REQ- [id number] 03/24 03/24 [facility] TRAZODONE [id number] /2015 Fa [facility] [id number] PAUL Mccann 48e [place] REFILL REQ- [id number] 03/24 03/24 [facility] TRAZODONE [id number] /2015 Fa [facility] [id number] PAUL Mccann c38 [place] REFILL REQ- [id number] 03/24 03/24 [facility] TRAZODONE [id number] /2015 Fa [facility] [id number] PAUL Mccann 680 [place] REFILL REQ- [id number] 03/24 03/24 [facility] TRAZODONE [id number] /2015 Fa [facility] [id number] PAUL Mccann ce0 [place] REFILL REQ- [id number] 03/24 03/24 [facility] CLONAZEPAM [id number] /2015 F [facility] b-[id number] PAUL cMcann 8e6 [place] REFILL REQ- [id number] 03/24 03/24 [facility] CLONAZEPAM [id number] /2015 F [facility] [id number] PAUL Mccann c77 [place] REFILL REQ- [id number] 03/24 03/24 [facility] CLONAZEPAM [id number] /2015 F [facility] 5-[id number] PAUL Mccann c8b [place] REFILL REQ- [id number] 03/24 03/24 [facility] CLONAZEPAM [id number] /2015 [facility] [id number] PAUL Mccann e0a [place] REFILL REQ- [id number] 03/24 03/24 [facility] CLONAZEPAM [id number] /2015 [facility] c-[id number] PAUL Mccann 404 [place] REFILL REQ- [id number] 03/24 03/24 [facility] CLONAZEPAM [id number] /2015 [facility] c-[id number] PAUL Mccann 518 [place] Unknown [id number] 04/21 04/21 [facility] [id number] [facility] [id number] PAUL Mccann cac [place] Unknown [id number] 04/21 04/21 [facility] [id number] /2015 [facility] [id number] PAUL Mccann fee [place] Unknown [id number] 04/21 04/21 [facility] [id number] [facility] [id number] PAUL Mccann [address] [place] Unknown [id number] 04/21 04/21 S L Family [id number] /2015 [facility] [id number] PAUL Mccann c54 [place] Unknown [id number] 04/21 04/21 S L Family [id number] /2015 [facility] [id number] PAUL Mccann b73 [place] Unknown [id number] 04/21 04/21 S L Family [id number] [facility] [id number] PAUL Mccann af5 [place] Unknown [id number] 04/21 04/21 S L Family [id number] /2015 [facility] [id number] PAUL Mccann fe6 [place] Unknown [id number] 04/21 04/21 S Arianna Family [id number] /2015 [facility] [id number] PAUL Mccann [address] [place] REFILL REQ- [id number] 06/17 06/17 SL Family CLONAZEPAM [id number] /2015 [facility]CYCLOBENZA [id number] Health , PAUL MASTERSON [address] [place] REFILL REQ- [id number] 06/17 06/17 SL Family CLONAZEPAM [id number] /2015 [facility] /CYCLOBENZA [id number] Health , PAUL MASTERSON 3bd [place] REFILL REQ- [id number] 06/17 06/17 Family CLONAZEPAM [id number] /2015 [facility] /CYCLOBENZA [id number] Health , PAUL MASTERSON 69a [place] REFILL REQ- [id number] 06/17 06/17 Family CLONAZEPAM [id number] /2015 [facility] /CYCLOBENZA [id number] Health , PAUL MASTERSON [address] [place] REFILL REQ- [id number] 06/17 06/17 Family CLONAZEPAM [id number] /2015 [facility] /CYCLOBENZA [id number] Health , PAUL MASTERSON 6af [place] REFILL REQ- [id number] 06/17 06/17 Family CLONAZEPAM [id number] /2015 [facility] /CYCLOBENZA [id number] Health , PAUL MASTERSON [address] [place] REFILL REQ- [id number] 06/30 06/30 Family TRAZODONE [id number] /2015 [facility] [id number] PAUL Mccann 31f [place] REFILL REQ- [id number] 06/30 06/30 Family TRAZODONE [id number] /2015 [facility] [id number] PAUL Mccann a48 [place] REFILL REQ- [id number] 06/30 06/30 SL Family TRAZODONE [id number] /2015 [facility] [id number] PAUL Mccann 7a9 [place] REFILL REQ- [id number] 06/30 06/30 SL Family TRAZODONE [id number] /2015 [facility] [id number] PAUL Mccann 41[address] [place] REFILL REQ- [id number] 06/30 06/30 SL Family TRAZODONE [id number] /2015 [facility] [id number] PAUL Mccann 4f4 [place] medication [id number] 07/17 07/17 SL Family [id number] /2015 [facility] [id number] PAUL Mccann b4d [place] medication [id number] 07/17 07/17 SL Family [id number] /2015 [facility] [id number] PAUL Mccann a59 [place] medication [id number] 07/17 07/17 SL Family [id number] /2015 [facility] [id number] PAUL Mccann [address] [place] medication [id number] 07/17 07/17 SL Family [id number] /2015 [facility] [id number] [facility]ccann [address] [facility] [id number] 09/22 09/22 S L Family [id number] /2016 [facility] [id number] PAUL Mccann cd2 [place] Unknown [id number] 09/22 09/22 S L Family [id number] /2016 [facility] [id number] PAUL Mccann 55f [place] Unknown [id number] 09/22 09/22 S L Family [id number] /2016 [facility] [id number] PAUL Mccann 4ea [place] REFILL REQ- [id number] 10/06 10/06 SL Family CLONAZEPAM/ [id number] /2016 [facility] CYCLOBENZAP [id number] Health , [place] 0a4 [place] REFILL REQ- [id number] 10/06 10/06 Family CLONAZEPAM/ [id number] /2016 [facility] CYCLOBENZAP [id number] Ananth , PAUL PORTER [address] [place] REFILL REQ- [id number] 10/07 10/07 Family CLONAZEPAM/ [id number] /2016 [facility] CYCLOBENZAP [id number] Health , PAUL PORTER ffb Procedures Procedure Code Date Perfomer Comments Source Miscellaneous [id number] 1Brain bleed [facility] [place] <sup>1</sup> Miscellaneous [id number] 2C-spine [facility] [place] <sup>2</sup> Miscellaneous [id number] 3Broken neck [place] <sup>3</sup> Assessment and Plan No Data Provided for This Section Plan of Care No Data Provided for This Section Social History Social History Date Source Social History ElementQualifiersDate Reported 08/22/2016 [facility] Pets: . 3DOGS, 1 CAT Aug 22, [...] 22, 2016 Social History ElementQualifiersDate Reported 09/04/2014 [facility] Tobacco Use: . Status former smoker Sep 04, 2014 Drug Use: . No Sep 04, 2014 Alcohol: . Yes, Rarely Sep 04, 2014 Family History No Data Provided for This Section Advance Directives No Data Provided for This Section Functional Status No Data Provided for This Section
--- OUTSIDE RECORDS SUMMARY | 2020-02-12 22:10 | XMS REPORT ---
[...] Status Dosage System Date Date cefdinir ND 49559904718 300 mg orally Active 1 cap (s) every 12 hours clonazepam [facility] [id number] 1 mg Active TAKE 1 TABLET BY MOUTH TWICE A DAY Medrol Dosepak NDC 0 varying orally Active As directed Risperdal ND 68803713221 1 mg orally bid Active 1 tab Vital Signs Date/Time: Aug 25, 2019 BMI 25.01 Index Height 66 in Weight 155 lbs Pulse 58 /min Blood Pressure Diastolic 80 mm Hg Blood Pressure Systolic 126 mm Hg Temperature 97.7 F Results No Known Results Summary Purpose eClinicalWorks Submission
--- OUTSIDE RECORDS SUMMARY | 2020-02-12 22:10 | XMS REPORT ---
[...] Start Date End Date Status Dosage clonazepam [facility] 05091629032 1 mg Active TAKE 1 TABLET BY MOUTH TWICE A DAY Results No Known Results Summary Purpose eClinicalWorks Submission
[2020-02-12] MEDS ORDERED: MEPERIDINE HCL 50 MG/ML ONE (22:36)
[2020-02-12 22:49] LABS: Magnesium 2.1 mg/dL (1.8-2.4); Potassium 4.3 mmol/L (3.5-5.1)
[2020-02-12] MEDS ORDERED: MORPHINE 4 MG/ML SYR ONE (23:22)
--- NOTE | 2020-02-12 23:59 | EDPHYS ---
Physician Documentation [facility] Name: Lisseth Powell Age: 44 yrs Sex: Female : 1975 Arrival Date: 02/12/2020 Time: 22:08 Bed 2 Private MD: ED Physician Stuart Andrade HPI: 02/11 22:38 This 44 yrs old Female presents to ER via Wheelchair with complaints of Leg rn Pain. 22:38 The patient presents with pain, spasm. The complaints affect the both legs. Onset: The rn symptoms/episode began/occurred just prior to arrival. Modifying factors: The symptoms are alleviated by elevating leg, the symptoms are aggravated by movement, weight bearing, bending knee. Severity of symptoms: At their worst the symptoms were moderate, in the emergency department the symptoms are unchanged. The patient has experienced a previous episode. Reports legs aching and "gave out", reports pain from thighs to knees, bilaterally, no injury, no fever or recent illness, no joint or rheumatologic problems. Reports feels better when lifts legs to chest. No back pain or trauma. Reports has had similar episode in past and told due to low potassium. Ate 2 bananas prior to arrival just in case. . 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 - Social history:: Smoking status: Patient reports the use of cigarette tobacco products, smokes one pack cigarettes per day. - Family history:: not pertinent. - Hospitalizations: : No recent hospitalization is reported. ROS: 22:38 Constitutional: Negative for fever, chills, and weight loss, Eyes: Negative for injury, rn pain, redness, and discharge, Neck: Negative for injury, pain, and swelling, Cardiovascular: Negative for chest pain, palpitations, and edema, Respiratory: Negative for shortness of breath, cough, wheezing, and pleuritic chest pain, Abdomen/GI: Negative for abdominal pain, nausea, vomiting, diarrhea, and constipation, Back: Negative for injury and pain, MS/Extremity: Negative for injury and deformity, Skin: Negative for injury, rash, and discoloration, Neuro: Negative for headache, weakness, numbness, tingling, and seizure. Exam: 22:38 Constitutional: This is a well developed, well nourished patient who is awake, alert, rn holding both legs in air, hyperventilating Head/Face: Normocephalic, atraumatic. Cardiovascular: Regular rate and rhythm. No pulse deficits. Respiratory: + hyperventilating, seems anxious, speaking full sentences. Abdomen/GI: Soft, non-tender Back: No spinal tenderness. No costovertebral tenderness. Full range of motion. MS/ Extremity: Pulses equal, no cyanosis. Neurovascular intact. Full, normal range of motion. Equal circumference. No joint swelling. No skin changes. No focal tenderness. Points to knees and posterior thigh muscles when asked where it hurts. Neuro: Awake and alert, GCS 15, oriented to person, place, time, and situation. Cranial nerves II-XII grossly intact. Motor strength 5/5 in all extremities. Sensory grossly intact. Cerebellar exam normal. Normal gait. Vital Signs: 22:20 BP 115 / 82; Pulse 93; Resp 26; Temp 98.0(TE); Pulse Ox 99% on R/A; Weight 68.04 kg; ss Height 5 ft. 8 in. (172.72 cm); Pain 10/10; 23:17 BP 118 / 75; Pulse 90; Resp 20; Pulse Ox 100% ; rr5 02/12 00:12 BP 112 / 70; Pulse 85; Resp 19; Pulse Ox 99% ; Pain 0/10; rr5 02/11 22:20 Body Mass Index 22.81 (68.04 kg, 172.72 cm) ss MDM: 02/11 22:13 Patient medically screened. rn 23:57 Differential diagnosis: neuropathy, muscle spasm, muscle aches, electrolyte disorder, rn anxiety. Data reviewed: vital signs, nurses notes, lab test result(s), and as a result, I will discharge patient. Counseling: I had a detailed discussion with the patient and/or guardian regarding: the historical points, exam findings, and any diagnostic results supporting the discharge/admit diagnosis, lab results, the need for outpatient follow up, to return to the emergency department if symptoms worsen or persist or if there are any questions or concerns that arise at home. Response to treatment: the patient's symptoms have markedly improved after treatment, and as a result, I will discharge patient. Special discussion: I discussed with the patient/guardian in detail that at this point there is no indication for admission to the hospital. It is understood, however, that if the symptoms persist or worsen the patient needs to return immediately for re-evaluation. ED course: No acute findings in bloodwork, afebrile, does not feel ill, no skin or joint changes on exam, feels better with FROM, no signs or symptoms of spinal cord compression, will dc home with muscle relaxer as already on steroids. Return precautions given and understood. . 02/11 22:21 Order name: BMP; Complete Time: 22:52 rn 02/11 22:21 Order name: CK; Complete Time: 22:52 rn 02/11 22:21 Order name: IV Start; Complete Time: 22:35 rn 02/11 22:21 Order name: Magnesium; Complete Time: 22:52 rn Administered Medications: 22:25 Drug: Demerol 25 mg {Note: rass 0. .} Route: IVP; Site: left forearm; rr5 23:15 Follow up: Response: No adverse reaction; No change in condition; Pain is unchanged, rr5 physician notified; RASS: Alert and Calm (0) 23:16 Drug: morphine 4 mg {Note: rasss 0.} Route: IVP; Site: left forearm; rr5 02/12 00:14 Follow up: Response: No adverse reaction; Marked relief of symptoms; RASS: Alert and rr5 Calm (0) Disposition: 02/12/20 23:59 Discharged to Home. Impression: Myalgia. - Condition is Stable. - Discharge Instructions: Muscle Pain, Adult. - Prescriptions for Cyclobenzaprine 10 mg Oral Tablet - take 1 tablet by ORAL route every 8 hours As needed; 20 tablet. - Medication Reconciliation Form, Thank You Letter, Antibiotic Education, Prescription Opioid Use form. - Follow up: Private Physician; When: As needed; Reason: Recheck today's complaints, Re-evaluation by your physician. - Problem is new. - Symptoms have improved. Signatures: Dispatcher [employer] EDMS Stuart Andrade MD MD rn Smirch, Shelby, RN RN ss Roque, Raymond, RN RN rr5 Corrections: (The following items were deleted from the chart) 00:14 02/11 23:59 02/12/2020 23:59 Discharged to Home. Impression: Myalgia. Condition is rr5 Stable. Forms are Medication Reconciliation Form, Thank You Letter, Antibiotic Education, Prescription Opioid Use. Follow up: Private Physician; When: As needed; Reason: Recheck today's complaints, Re-evaluation by your physician. Problem is new. Symptoms have improved. rn
--- NOTE | 2020-02-12 23:59 | ER ---
Nurse's Notes [facility] Name: Lisseth Powell Age: 44 yrs Sex: Female : 1975 Arrival Date: 02/12/2020 Time: 22:08 Bed 2 Private MD: Diagnosis: Myalgia Presentation: 02/11 22:20 Chief complaint: Patient states: sudden onset of bilateral pain and weakness that began ss 3 hours ago. Denies injury. Coronavirus screen: Proceed with normal triage. Patient denies a cough. Patient denies shortness of breath or difficulty breathing. Patient denies measured and/or subjective temperature greater than 100.4F prior to today's visit. Patient denies travel on a cruise ship or to a country the [facility] currently lists as an affected area. Patient denies contact with known and/or suspected case of COVID-19. Ebola Screen: Patient denies exposure to infectious person. Patient denies travel to an Ebola-affected area in the 21 days before illness onset. Initial Sepsis Screen: Does the patient meet any 2 criteria? No. Patient's initial sepsis screen is negative. Does the patient have a suspected source of infection? No. Patient's initial sepsis screen is negative. Risk Assessment: Do you want to hurt yourself or someone else? Patient reports no desire to harm self or others. Onset of symptoms was February 12, 2020. 22:20 Method Of Arrival: Wheelchair ss 22:20 Acuity: JULIET 3 ss [employer]: 23:17 LMP 2020 rr5 Historical: - Allergies: 22:25 No Known Allergies; ss - PMHx: 22:25 Bipolar disorder; ss - PSHx: 22:25 brain surgery; c-spine fusion; ankle surgery; hand surgery; ss - Immunization history:: Adult Immunizations up to date. - Social history:: Smoking status: Patient reports the use of cigarette tobacco products, smokes one pack cigarettes per day. - Family history:: not pertinent. - Hospitalizations: : No recent hospitalization is reported. Screenin:36 Abuse screen: Denies threats or abuse. Denies injuries from another. Nutritional rr5 screening: No deficits noted. Tuberculosis screening: No symptoms or risk factors identified. Fall Risk IV access (20 points). Gait- Impaired (20 pts.). Total Graf Fall Scale indicates Low Risk Score (25-44 pts). Fall prevention measures have been instituted. Side Rails Up X 2 Frequent Obs/Assesments occuring As available Patient and Family Educated on Fall Prevention Program and strategies. Assessment: 22:20 General: Appears in no apparent distress. uncomfortable, ill, Behavior is calm, rr5 cooperative, appropriate for age. 22:20 Pain: Complains of pain in right leg and left leg Pain currently is 10 out of 10 on a rr5 pain scale. Quality of pain is described as aching, Pain began gradually, Is intermittent. Neuro: Level of Consciousness is awake, alert, obeys commands, Oriented to person, place, time, situation, Appropriate for age. Cardiovascular: Capillary refill < 3 seconds Patient's skin is warm and dry. Respiratory: Airway is patent Respiratory effort is even, unlabored, Respiratory pattern is regular, symmetrical. GI: No signs and/or symptoms were reported involving the gastrointestinal system. : No signs and/or symptoms were reported regarding the genitourinary system. EENT: No signs and/or symptoms were reported regarding the EENT system. Derm: Skin is intact, is healthy with good turgor, Skin temperature is warm. Musculoskeletal: Capillary refill < 3 seconds, Reports weakness in right leg and left leg pain in right leg and left leg Pain is 10 out of 10 on a pain scale. 23:15 Reassessment: Patient appears in no apparent distress at this time. ED provider aware rr5 with order made and carried out Patient states symptoms have not improved. 23:28 Reassessment: Patient appears in no apparent distress at this time. Patient is alert, rr5 oriented x 3, equal unlabored respirations, skin warm/dry/pink. Patient states feeling better. Patient states symptoms have improved. 02/12 00:11 Reassessment: Patient appears in no apparent distress at this time. Patient is alert, rr5 oriented x 3, equal unlabored respirations, skin warm/dry/pink. discharge instruction given and explained without complaints made. Patient states feeling better. Patient states symptoms have improved. Vital Signs: 02/11 22:20 BP 115 / 82; Pulse 93; Resp 26; Temp 98.0(TE); Pulse Ox 99% on R/A; Weight 68.04 kg; ss Height 5 ft. 8 in. (172.72 cm); Pain 10/10; 23:17 BP 118 / 75; Pulse 90; Resp 20; Pulse Ox 100% ; rr5 02/12 00:12 BP 112 / 70; Pulse 85; Resp 19; Pulse Ox 99% ; Pain 0/10; rr5 02/11 22:20 Body Mass Index 22.81 (68.04 kg, 172.72 cm) ED Course: 02/11 22:08 Patient arrived in ED. ag3 22:12 Stuart Andrade MD is Attending Physician. rn 22:23 Triage completed. ss 22:24 Franco Lagos, ANNA is Primary Nurse. rr5 22:25 Arm band placed on right wrist. ss 22:25 Inserted saline lock: 18 gauge in left forearm, using aseptic technique. Blood rr5 collected. 22:36 Patient has correct armband on for positive identification. Bed in low position. Call rr5 light in reach. Side rails up X2. Pulse ox on. NIBP on. 07 00:12 No provider procedures requiring assistance completed. IV discontinued, intact, rr5 bleeding controlled, No redness/swelling at site. Pressure dressing applied. Patient maintains SpO2 saturation greater than 95% on room air. Administered Medications: 02/11 22:25 Drug: Demerol 25 mg {Note: rass 0. .} Route: IVP; Site: left forearm; rr5 23:15 Follow up: Response: No adverse reaction; No change in condition; Pain is unchanged, rr5 physician notified; RASS: Alert and Calm (0) 23:16 Drug: morphine 4 mg {Note: rasss 0.} Route: IVP; Site: left forearm; rr5 02/12 00:14 Follow up: Response: No adverse reaction; Marked relief of symptoms; RASS: Alert and rr5 Calm (0) Outcome: 02/11 23:59 Discharge ordered by . rn 02/12 00:12 Discharged to home via wheelchair. rr5 Condition: stable Discharge instructions given to patient, Instructed on discharge instructions, follow up and referral plans. medication usage, Demonstrated understanding of instructions, follow-up care, medications, Prescriptions given X 1. 00:14 Patient left the ED. rr5 Signatures: Stuart Andrade MD MD rn Smirch, Shelby, RN RN Deena Zarate [facility] Franco Lagso, ANNA RN rr5
[2020-02-13 00:48] VITALS: TEMP 98
[2020-02-13 01:01] VITALS: BP 112/70; O2SAT 99
== END 2020-02-13 00:14 | disposition home or self-care (01) ==
LOC: ER 22:03
DX: M79.10 Myalgia, unspecified site (principal); F17.210 Nicotine dependence, cigarettes, uncomplicated
CPT/HCPCS: 80048; 36415; 83735; 82550; 96375; 96374; 99284; J2175